=== PATIENT | male | born 1940 | race Caucasian/White ===

== ENCOUNTER 2019-08-03 10:17 | Outpatient (CLI) | payer MEDICARE, SELFPAY ==
--- NOTE | ~2019-08-03 | XR_ITS ---
XR wrist LT min 3V DATE: 08/03/2019 10:42 INDICATION: Rheumatoid arthritis TECHNIQUE: 4 views COMPARISON: None FINDINGS: There is no erosion of the ulnar styloid process. Radial carpal joint space is well preserv ed. There is prominent narrowing and some sclerosis at the triscaphe joint. There is erosive change of the base of the proximal phalanx of the first digit as well as some joint space narrowing and mild spurring. IMPRESSION: Erosive change at the base of the first metacarpal bone Degenerative changes at the triscaphe joint, first carpometacarpal joint Reviewed, dictated and finalized at location A.
--- NOTE | ~2019-08-03 | XR_ITS ---
XR wrist RT min 3V DATE: 08/03/2019 10:42 INDICATION: Rheumatoid arthritis TECHNIQUE: 4 views COMPARISON: None FINDINGS: No erosive change of the ulnar styloid process is evident. Radiocarpal joint is intact. There is cystic change or erosion at the proximal aspect of the navicular bone. There is severe narrowing of some sclerosis at the triscaphe joint. There is some erosive change of base of the first metacarpal bone as well as joint space narrowing an d some spurring at this joint. There is osteoarthritic change at the interphalangeal joint of first digit. IMPRESSION: Some erosive and degenerative changes are identified Reviewed, dictated and finalized at location A.
== END 2019-08-03 10:18 | disposition home or self-care (01) ==
LOC: ANHIMG 10:22
PROVIDERS: PCP Internal Medicine
DX: M05.79 Rheumatoid arthritis with rheumatoid factor of multiple sites without organ or systems involvement (principal)
CPT/HCPCS: 73110

== ENCOUNTER 2020-11-13 14:30 | Outpatient (RCR) | payer MEDICARE, OTHER, SELFPAY ==
--- NOTE | 2020-10-09 17:05 | PTOPEVAL ---
INITIAL PHYSICAL THERAPY EVALUATION and PLAN OF CARE Thank you for referring Bruno Winters to [facility].? Bruno is scheduled to be seen for physical therapy? 0-1x/week for 5 weeks. Please review, sign, date and return this plan of care BLADE. I agree with and certify that the following plan of care is medically necessary. Referring Physician Date Admitting Provider: Attending Provider: Bubba Clarke MD Referring Provider: *PT Outpatient Evaluation Start: 10/09/20 13:30 Freq: Status: Active Protocol: Document 10/09/20 13:30 YUNIEL (Rec: 10/09/20 15:03 YUNIEL [id number]) Therapy Assessment Status Assessment Status Assessment Status Evaluation Outpatient Past Medical History Past Medical History Source of Past Medical History Recalled from Previous Visit, Confirmed with Patient/Family Neurological History Hx Neurological Disorders No Significant History Cardiovascular History Hx Cardiac Catheterization Yes: 2020 Hx Hypertension Yes Hx Pacemaker Yes: ICD june 2020 Respiratory History Hx Other Respiratory Disorders Yes: 03/2020 covid 19 pneumonia Gastrointestinal History Hx Hemorrhoids Yes: Hx Other Gastrointestinal Disorders Yes: occasional constipation Genitourinary History Hx Transurethral Resection Yes: 2018 Musculoskeletal History Hx Joint Replacement Yes: rt knee 2012 Hematological History Hx Other Hematological Disorders Yes: zarelto Endocrine History Hx Endocrine Disorders No Significant History HEENT History Hx Cataracts Yes: both 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 Hx Tonsillectomy Yes Hx Eye Surgery Yes Integumentary History Hx Skin Disorders No Significant History Reproductive History Hx Reproductive Disorders No Significant History Psychosocial History Hx Psychiatric Disorders No Significant History Pain History History of Any Previous or Ongoing No Significant History Instance of Pain Other History Hx Cancer Yes: skin cancer not melanona Evaluation Information Problem Diagnosis fecal smearing Onset last several months Additional Evaluation Detail Hospitalized in [place] with pneumonia and COVID - mid February - May Subjective Information Taking fiber drink - that is Query Text:As Reported By Patient/ helping Has hemorrhoids - Family has had surgery in the past. While hospitalized for COVID and pneumonia - afterwards
--- NOTE | 2020-11-13 15:16 | PTOPEVAL ---
PHYSICAL THERAPY DISCHARGE SUMMARY Thank you for referring Bruno Winters to [facility].? Rusty has done well in PT - he has met all goals set. He was seen x 3 visits. He is independent and compliant with his HEP which he is to continue to perform. I agree with Rusty's discharge from PT. Referring Physician Date Admitting Provider: Attending Provider: Bubba Clarke MD Referring Provider: Therapy Assessment Status Assessment Status Assessment Status Discharge Evaluation Information Problem Diagnosis fecal smearing Subjective Information Rusty reports that he is Query Text:As Reported By Patient/ getting up 1-x/night for Family urination - which is much improved from 6-7 times/night. He continues to use [employer] product - it is what they have - only uses 1/day - not very soiled at all. Did hurt back while on vacation - hasn't been as good with the pelvic floor exercises. Not losing any urine or stool with sit to stand motion. Tons better than when he first started. Pain Assessment Timing of Pain Assessment Timing of Pain Assessment Assessment Self Report Self Report Pain Level 0 Pain Score Pain Score 0: Self Report Pelvic Health Evaluation Pelvic Floor Assessment Sustained Levator Ani Strength 4 - able to hold 15 sec now Quick Levator Ani Contraction in 15 11 Seconds Pelvic Health Therapy Pelvic Health Exercise Isolated Levator Ani Contraction sitting - 10 ct hold/10 ct Query Text:Position, Hold/Relaxation relax x 5 reps Time, Repetitions Quick Contractions sitting 10 reps Query Text:Position, Repetitions Sit to Stand 2 deep breaths,6 quick Query Text:Deep Breaths, Quick contractions x 1 rep-verbally Contractions, Repetitions reviewed several times Elevator Techniques sitting Ken[place] Ball 4 steps up, Query Text:Repetitions, Number of 5 ct hold;3 steps going down x Steps Going Up, Number of Steps Going 5;variable x3 Down Resistive 'Shh' Technique long, soft x 5 reps, quick, Query Text:Quick, Hard, Long, Soft, hard x 5 reps Number of Repetitions Response to Exercise Increased Strength Endurance Excellent Rehab Teaching Rehab Teaching Teaching Topic Rehab Teaching Topic Components Exercise,Home Program As Pertains To Technique Recipient Patient Learning Preferences Audio,Demonstration,Discussion
== END 2020-11-14 10:28 | disposition home or self-care (01) ==
LOC: ANHPT 14:30
PROVIDERS: PCP Internal Medicine
DX: R15.1 Fecal smearing (principal)
CPT/HCPCS: 97110; 97161

== ENCOUNTER 2020-12-15 09:45 | Outpatient (RCR) | payer MEDICARE, OTHER, SELFPAY ==
[2020-09-23 15:26] VITALS: BP 148/80; PULSE 63; RESP 16; O2SAT 97
== END 2020-12-15 19:30 | disposition home or self-care (01) ==
LOC: ANHCPREHAB 09:45
PROVIDERS: PCP Internal Medicine
DX: I50.89 Other heart failure (principal)
CPT/HCPCS: 93798

== ENCOUNTER 2021-03-05 02:03 | Day surgery (SDC) | payer MEDICARE, OTHER, SELFPAY ==
[2021-02-23 13:11] VITALS: BMI 25.2
[2021-03-05 10:41] VITALS: BP 111/65; PULSE 74; RESP 20; TEMP 36.1; O2SAT 99
--- NOTE | 2021-03-05 10:54 | PM.HPGS ---
History of Present Illness History of Present Illness Consent: Risks, benefits, and alternatives have been discussed and questions answered. Patient agrees to proceed with procedure. Chief complaint: MORGAN Narrative: Bruno Winters is a 81 year old male Who occasionally sees blood in his stools. He was recently found to be anemic. He had been referred to a colorectal surgeon for possible hemorrhoidectomy. Surgery however felt his hemorrhoids did not warrant surgery Review of Systems Review of Systems: All systems reviewed & are unremarkable except as noted in HPI and below PMFSH Past Medical History Medical History Back pain BPH (benign prostatic hyperplasia) Cataracts, bilateral Detached retina Hyperlipidemia Hypertension Pacemaker Rectal polyp Surgical History Surgical History H/O hemorrhoidectomy H/O hernia repair H/O transurethral resection of prostate History of total right knee replacement (TKR) Hx of cataract surgery Family History Family History (Updated 09/23/20 @ 15:33 by Jaz Rouse RN) Sibling Valvular heart disease Leukemia Father Pancreatic cancer Mother Leukemia Son Melanoma of eye Other Melanoma Social History Social History Years smoked: 12 Smoking status: Former smoker Tobacco type: pipe Smoking end date: 02/28/73 Alcohol intake: current Drinks per week: 2 Living arrangements: with family Gender identity (if verbalized by the patient): Male Spiritual care concerns: No Meds Home Medications and Allergies Home Medications Medication Instructions Recorded Confirmed Type furosemide 40 mg tablet 60 mg PO QAM 07/29/20 02/23/21 History isosorbide dinitrate 30 mg tablet 30 mg PO DAILY 07/29/20 02/23/21 History losartan 25 mg tablet 25 mg PO DAILY 07/29/20 02/23/21 History methotrexate sodium 2.5 mg tablet 12.5 mg PO WEEKLY 07/29/20 02/23/21 History amiodarone [Pacerone] 200 mg PO DAILY 09/23/20 02/23/21 History folic acid 5 mg PO DAILY 09/23/20 02/23/21 History metoprolol tartrate 50 mg PO DAILY 09/23/20 02/23/21 History ckczkobo-dle-afhww-vit K-lycop 1 tablet PO DAILY 09/23/20 02/23/21 History [Men's Multivitamin] rivaroxaban [Xarelto] 20 mg PO DAILY 09/23/20 03/05/21 History ferrous sulfate 325 mg PO DAILY 02/23/21 02/23/21 History zinc 50 mg PO DAILY 02/23/21 02/23/21 History Allergies Allergy/AdvReac Type Severity Reaction Status Date / Time lisinopril Allergy Mild cough Verified 03/05/21 10:38 baclofen Allergy Unknown Dizziness Verified 03/05/21 10:38 Vital Signs Vital Signs - 24 hr 03/05/21 10:41 Temperature 36.1 C L Pulse Rate 74 Respiratory Rate 20 Blood Pressure 111/65 Pulse Oximetry 99 Exam Const: General: alert Orientation/consciousness: patient oriented x3 Resp: Auscultation: clear to auscultation bilaterally Cardio: Rhythm: regular rhythm GI: GI Palp: Yes Soft to palpation and No Tenderness to palpation present (GI) Neuro: General: patient oriented x3 Assessment and Plan Assessment and plan (1) Anemia: Code(s): D64.9 - Anemia, unspecified Status: Acute Assessment and Plan: Colonoscopy with possible biopsy or polypectomy or cautery or injection of substances.
[2021-03-05] MEDS: LACTATED RINGERS 1,000 ML 150 ML IV CONT (10:56)
--- NOTE | 2021-03-05 11:07 | WPDANESEPPF ---
Anes - Initial Pre Proc Eval Procedure: Operation Date: 03/05/21 12:00 Proposed Procedures p Colonoscopy - Tank Hinds MD Date/Time: 03/05/21 11:07 Surgeon: Tank Hinds MD Pre Op Diagnosis: MORGAN Patient Data Age: 81 Gender: M Height: 1.78 m Weight: 80 kg Last Vital Signs Temp 97 F L 03/05/21 10:41 Pulse 74 03/05/21 10:41 Resp 20 03/05/21 10:41 BP 111/65 03/05/21 10:41 Pulse Ox 99 03/05/21 10:41 Allergies Allergy/AdvReac Type Severity Reaction Status Date / Time lisinopril Allergy Mild cough Verified 03/05/21 10:38 baclofen Allergy Unknown Dizziness Verified 03/05/21 10:38 Home Medications Medication Instructions Recorded Confirmed Type furosemide 40 mg tablet 60 mg PO QAM 07/29/20 02/23/21 History isosorbide dinitrate 30 mg tablet 30 mg PO DAILY 07/29/20 02/23/21 History losartan 25 mg tablet 25 mg PO DAILY 07/29/20 02/23/21 History methotrexate sodium 2.5 mg tablet 12.5 mg PO WEEKLY 07/29/20 02/23/21 History amiodarone [Pacerone] 200 mg PO DAILY 09/23/20 02/23/21 History folic acid 5 mg PO DAILY 09/23/20 02/23/21 History metoprolol tartrate 50 mg PO DAILY 09/23/20 02/23/21 History gjwheiob-zaz-mmzos-vit K-lycop 1 tablet PO DAILY 09/23/20 02/23/21 History [Men's Multivitamin] rivaroxaban [Xarelto] 20 mg PO DAILY 09/23/20 03/05/21 History ferrous sulfate 325 mg PO DAILY 02/23/21 02/23/21 History zinc 50 mg PO DAILY 02/23/21 02/23/21 History Patient hx anesthesia problems: none Family hx anesthesia problems: none Results Review: All pre-operative results and documents have been reviewed as part of the pre-operative evaluation. [facility] Past Medical History Medical History Back pain BPH (benign prostatic hyperplasia) Cataracts, bilateral Detached retina Hyperlipidemia Hypertension Pacemaker Rectal polyp Surgical History Surgical History H/O hemorrhoidectomy H/O hernia repair H/O transurethral resection of prostate History of total right knee replacement (TKR) Hx of cataract surgery Family History Family History (Updated 09/23/20 @ 15:33 by Jaz Rouse RN) Sibling Valvular heart disease Leukemia Father Pancreatic cancer Mother Leukemia Son Melanoma of eye Other Melanoma Social History Social History Years smoked: 12 Smoking status: Former smoker Tobacco type: pipe Smoking end date: 02/28/73 Alcohol intake: current Drinks per week: 2 Living arrangements: with family Gender identity (if verbalized by the patient): Male Spiritual care concerns: No Anes - Eval Final PreProcedure Day of Procedure 03/05/21 11:07 Patient weight: overweight Heart: regular rate and rhythm Lungs: clear to auscultation Airway: Mallampati scale class III Neurological: alert and oriented Last oral intake: >/= 8 hours ASA classification: III Emergent: no Anesthetic plan: proceed Anesthesia type and monitoring: general GIVS and standard monitoring Results Review: All pre-operative results and documents have been reviewed as part of the pre-operative evaluation. Informed Consent: The patient's anesthetic plan and its attendant risks and benefits were discussed with the patient/family/POA. Questions were solicited and answers provided to the satisfaction of the patient/family/POA.
[2021-03-05 11:42] VITALS: BP 110/66; PULSE 70; RESP 23; O2SAT 100
[2021-03-05 11:52] VITALS: BP 105/66; PULSE 70; RESP 18; O2SAT 96
[2021-03-05 12:02] VITALS: BP 110/68; PULSE 70; RESP 18; O2SAT 97
--- NOTE | 2021-03-05 13:17 | SUR.PHASEII ---
Edwardo from [employer] at bedside interrogating pacemaker.
== END 2021-03-05 13:31 | disposition home or self-care (01) ==
PROVIDERS: Visit Provider Internal Medicine Gastroenterology
PROC: 0DJD8ZZ Inspection of Lower Intestinal Tract, Via Natural or Artificial Opening Endoscopic (ICD-10-PCS; CPT 45378; principal; 2021-03-05 12:00)
DX: K92.1 Melena (principal); D50.9 Iron deficiency anemia, unspecified; D12.0 Benign neoplasm of cecum; K63.5 Polyp of colon; N40.0 Benign prostatic hyperplasia without lower urinary tract symptoms; E78.5 Hyperlipidemia, unspecified; I10 Essential (primary) hypertension; Z95.0 Presence of cardiac pacemaker; Z87.891 Personal history of nicotine dependence; K57.30 Diverticulosis of large intestine without perforation or abscess without bleeding
CPT/HCPCS: 45385; 88305; J2001; J2704; J7120

== ENCOUNTER → 2021-08-24 15:21 | Outpatient (CLI) | payer MEDICARE, OTHER, SELFPAY ==
--- NOTE | ~2021-08-24 | CT_ITS ---
EXAMINATION: CT brain wo con DATE: 08/24/2021 15:45 INDICATION: Thaddeus Vanita syndrome TECHNIQUE: Computed tomography (CT) of the head was performed without intravenous contrast. The mA wa s adjusted according to patient size. Iterative reconstruction technique was employed. Exam dose: 59 9.57 mGy-cm total exam DLP. COMPARISON: None FINDINGS: Bilateral vertebral and internal carotid artery calcifications. There is nonspecific dimini shed attenuation of the cerebral white matter, likely due to chronic small vessel ischemic changes. There is prominent central and cortical cerebral volume loss and moderate cerebellar volume loss. No intracranial mass lesion or hemorrhage or cerebrovascular accident is detected. No midline shift o r mass effect. No subdural or epidural hematoma. No fracture or bone destruction of the cranial vault. Included paranasal sinuses and mastoid air cell s are normally developed and aerated. IMPRESSION: Cerebral and cerebellar volume loss Cerebral atherosclerosis and chronic small vessel ischemic changes of the cerebral white matter Reviewed, dictated and finalized at Location A. Reviewed, dictated and finalized at location B. IMPRESSION: Cerebral and cerebellar volume loss Cerebral atherosclerosis and chronic small vessel ischemic changes of the cereb ral white matter
== END ==
PROVIDERS: PCP Internal Medicine; Visit Provider Internal Medicine
DX: H53.16 Psychophysical visual disturbances (principal); I67.2 Cerebral atherosclerosis; I67.82 Cerebral ischemia
CPT/HCPCS: 70450

== ENCOUNTER 2021-11-04 07:34 | Outpatient (CLI) | payer MEDICARE, OTHER, SELFPAY ==
--- NOTE | 2021-11-27 11:38 | WPDSLEEPSTUD ---
Sleep Study Date of Study: 11/04/21 Ordering Provider: EVELIO Solis Interpreting Physician: Glory Merida MD Sleep Study Type: Split Polysomnogram Height: 1.78 m Weight: 78.925 kg Body Mass Index: 25.0 Neck Circumference (inches): 13.5 [place]: 12 Reason for Sleep Study Poor sleep, nonrestorative sleep Sleep History Bruno Winters is an 81-year-old man who complains of lack of sleep. 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 He also has severe systolic dysfunction with an EF of 16% on an echo from July 21, 2021 at [facility]. He has difficulty falling asleep, he wakes up during the night including the early mornings and he has excessive daytime sleepiness. He rarely awakens from sleep feeling short of breath. He rarely awakens at night with heartburn, belching or coughing. He frequently snores and occasionally this is loud enough that others complain about it. He does not gasp for breath at night. He frequently has breathing problems at night observed by others. He does not sweat excessively at night or notice his heart pounding or beating irregularly at night he frequently falls asleep during the day, frequently falls asleep involuntarily but only rarely while driving. He does not have loss of muscle tone with strong emotion. He does not have daytime difficulties due to excessive sleepiness. He does not feel paralyzed on waking or falling asleep nor does he have vivid dreamlike scenes upon awakening or falling asleep. He does not feel afraid to go to sleep. He does not have nightmares. He rarely remembers his dreams. He rarely has racing thoughts. He rarely feels sad or depressed. He does not have anxiety. He does not have muscular tension. He occasionally notices parts of his body jerking. He rarely kicks at night. He rarely has crawling and aching feelings in his legs. He rarely has any kind of leg pain at night. He does not have morning jaw pain. Does not grind his teeth during sleep. He is not bothered by pain during the day. He rarely is awakened by pain at night. He does not wake up feeling stiff in the morning. He does not wake up with sore achy muscles. He rarely wakes up with pain in the neck and spine. He has fatigue. Normal bedtime is 11:00 pm, taking 1-2 hours to fall asleep, waking at night to urinate several times. He wakes at 8:00 a.m. not feeling refreshed. He takes naps in the afternoon or evening, however naps are not refreshing. He is drowsy for 2 hours after waking. Habits: Former smoker. Quit smoking tobacco pipe in 1974. One alcoholic drink per week. No recreational drugs. [facility] Past Medical History Medical History Back pain BPH (benign prostatic hyperplasia) Cataracts, bilateral Detached retina Hyperlipidemia Hypersomnia, unspecified Hypertension Pacemaker Rectal polyp Surgical History Surgical History H/O hemorrhoidectomy H/O hernia repair H/O transurethral resection of prostate History of total right knee replacement (TKR) Hx of cataract surgery Family History Family History Sibling Valvular heart disease Leukemia Father Pancreatic cancer Mother Leukemia Son Melanoma of eye Other Melanoma Social History Social History Years smoked: 12 Smoking status: Former smoker Tobacco type: pipe Smoking end date: 02/28/73 Alcohol intake: current Drinks per week: 2 Gender identity (if verbalized by the patient): Male Spiritual care concerns: No Medications Home Medications Medication Instructions Recorded Confirmed Type furosemide 40 mg tablet 60 mg PO QAM 07/29/20 10/14/21 History isosorbide dinitr
[2021-11-27 13:07] VITALS: BMI 25.0
== END 2021-11-05 06:09 | disposition home or self-care (01) ==
PROVIDERS: PCP Internal Medicine; Visit Provider Physician Assistant
DX: G47.31 Primary central sleep apnea (principal); G47.10 Hypersomnia, unspecified; G47.30 Sleep apnea, unspecified
CPT/HCPCS: 95811

== ENCOUNTER 2022-02-26 10:19 | Outpatient (CLI) | payer MEDICARE, OTHER, SELFPAY ==
--- NOTE | ~2022-02-26 | US_ITS ---
EXAMINATION: US carotid duplex BI DATE: 02/26/2022 11:19 INDICATION: Subjective visual loss in the left eye TECHNIQUE: Grayscale, color Doppler, and pulsed Doppler images of the cervical carotid arteries were obtained. The degree of vessel stenosis is placed in one of the following categories: normal, <50%, 5 0-69%, >=70% but less than near-occlusion, near-occlusion, or total occlusion. Note that percent sten osis relative to normal distal artery lumen diameter is indirectly measured from velocity measurement s as described by Adi, et al. Radiology 2003; [id number]. COMPARISON: None. FINDINGS: RIGHT: The right common carotid artery (CCA) peak systolic velocity (PSV) is 52 cm/s. The right internal car otid artery (ICA) PSV is 55 cm/s. The right ICA end-diastolic velocity (EDV) is 19 cm/s. The right IC A/CCA PSV ratio is 1.0. Grayscale and color Doppler images yield an estimate of <50% diameter reducti on from negligible plaque in the ICA. The external carotid artery (ECA) PSV is 55 cm/s. There is ante grade flow in the right vertebral artery. LEFT: The left CCA PSV is 59 cm/s. The left ICA PSV is 55 cm/s. The left ICA EDV is 20 cm/s. The left ICA/C CA PSV ratio is 0.9. Grayscale and color Doppler images yield an estimate of <50% diameter reduction from negligible plaque in the ICA. The ECA PSV is 44 cm/s. There is antegrade flow in the left verteb ral artery. IMPRESSION: 1. <50% stenosis from negligible plaque in the right internal carotid artery. 2. <50% stenosis from negligible plaque in the left internal carotid artery. Reviewed, dictated and finalized at location A. UE MAKER
== END 2022-02-26 10:20 | disposition home or self-care (01) ==
PROVIDERS: PCP Internal Medicine; Visit Provider Internal Medicine
DX: H54.62 Unqualified visual loss, left eye, normal vision right eye (principal); H53.8 Other visual disturbances; I65.23 Occlusion and stenosis of bilateral carotid arteries
CPT/HCPCS: 93880

== ENCOUNTER 2022-04-29 08:00 | Outpatient (RCR) | payer MEDICARE, OTHER, SELFPAY ==
--- NOTE | 2022-03-25 10:00 | PTOPEVAL1 ---
Assessment and note entered by Yvette Foreman, PT Evaluation Information Assessment Status Evaluation Diagnosis leg strengthening Onset Feb 2020 Subjective Information have had some leg weakness since hospitalizations and illness since 2020; limited standing ~ 5-10 min due to R knee pain, walking ~ 50 yards, knee hurts; had R TKR in 2012 and soreness and pain since then; was told had bone spurs in the knee; last saw orthopedic dr about 3 yr ago; do not do any exercises for legs; have stationary bike at home--not using at this time; in the past 6 months, have fallen 7 x- catch foot on rug, missing a step; R foot feels numb; Reported Pain Level Pain Score Self Report Additional Pain Score Comments pain range of 2-4/10; increase standing, walking, stairs; decreased pain with rest, sit down; no meds; no ice used; discussed PRN use of ice; Assessment PT Clinical Summary Rusty has the diagnosis of leg strengthening. 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 He has decreased standing and walking tolerance, with history of 7 falls in the past 6 months. His medical history includes R eye blindness, R TRK in 2012 and has not followed up with ortho dr in several years. He does not do any exercises at home. With the evaluation: he has weakness of B hips, knees and ankles, with decreased motor control of ankle motions and walks with lateral motion of trunk; 2 minute walk test distance of 475' with reports of SOB, increase knee pain and increased lateral motion of trunk R/L. Skilled PT services are indicated for therapeutic exercises to increase LE strength, gait and balance skills, to improve safety with mobility and decrease risk for falls. And education for home exercises and improved gait pattern. Plan of Care Interventions Gait Training,Neuro Re-education,Patient/Caregiver Education,Therapeutic Activities,Therapeutic Exercise PT Services Indicated Yes Treatment Frequency and 2x/wk for 4 weeks Duration These treatments will address the objective and functional deficits as defined above. The patient will be advanced safely and appropriately in order for the patient to progress towards his/her prior level of function. Additional exercises will be introduced and as well as a comprehensive home exercise program upon disc
--- NOTE | 2022-04-08 13:49 | PCPTNOTE ---
Pt was not seen this date. Pt arrived for treatment as scheduled but alerted HAMPER MAKER that he was having issues with his defibbulator and it is only working at 15% currently. He stated he has to obtain a X-Ray to confirm if any wires were loose. He has not received that x-ray as of today. He is encouraged to do so and contact us with further details. HAMPER MAKER discussed with Faculty Instructor and it was agreed not to see pt until he had further details and to follow up with PT to confirm when she returns.
--- NOTE | 2022-04-29 08:31 | PTOPDC ---
Assessment and note entered by Yvette Foreman, PT Evaluation Information Assessment Status Discharge Diagnosis leg strengthening Onset Feb 2020 Subjective Information Rusty reports: pacemaker has been checked and said it was doing OK; use the cane for long walks but normally not use it; doing the exercises at home, hardest one is standing on one leg; continues to have R knee pain; feels like ready to be finished with therapy and do things on his own; Reported Pain Level Pain Score Self Report- continue to have R knee pain Assessment PT Clinical Summary Rusty has received 8 PT sessions. Compared to the initial evaluation he has improved with: R and L LE strength; increased 2 minute walking test distance by 75'; improved gait pattern and reported confidence with walking; He has been educated on a home exercise program and safety with mobility. He continues to have R knee pain and fatigue due to cardiac issues. The goals were partially achieved. Discharge PT services. Plan of Care PT Services Indicated No
== END 2022-06-08 11:15 | disposition home or self-care (01) ==
LOC: ANHPT 08:00
PROVIDERS: PCP Internal Medicine
DX: M06.09 Rheumatoid arthritis without rheumatoid factor, multiple sites (principal)
CPT/HCPCS: 97110; 97112; 97162; 97530

== ENCOUNTER 2022-12-28 09:43 | Emergency (ER) | payer MEDICARE, OTHER, SELFPAY ==
--- NOTE | ~2022-12-28 | XR_ITS ---
EXAMINATION: XR chest 2V DATE: 12/28/2022 10:24 INDICATION: Right-sided chest pain. Fall. TECHNIQUE: Frontal and lateral views of the chest were obtained. COMPARISON: Chest 2 views 09/05/2007 FINDINGS: There is a small right pleural effusion. There are airspace opacities in right mid and lowe r lung zones. There are Balbir B-lines, consistent mild pulmonary edema. No pneumothorax. The heart s ize is normal. There is a left chest was placed selectively with leads in right atrium, right ventric le, and coronary sinus. There is mild chronic anterior wedging of multiple midthoracic vertebral bodi es. IMPRESSION: 1. Airspace opacities in right mid and lower lung zones, consistent with atelectasis versus pneumonia . 2. Mild pulmonary edema. 3. Small right pleural effusion. Reviewed, dictated and finalized at location E. IMPRESSION: 1. Airspace opacities in right mid and lower lung zones, consistent with atelec tasis versus pneumonia. 2. Mild pulmonary edema. 3. Small right pleural effusion.
[2022-12-28 10:00] VITALS: BP 123/71; PULSE 71; RESP 18; TEMP 36.8; O2SAT 99
[2022-12-28] MEDS: IPRATROPIUM BR 0.02% INH SOLN 0.5 MG/2.5 ML VIAL INHALATION (11:35)
[2022-12-28] MEDS: LEVALBUTEROL NEB 1.25 MG/3 ML INHALATION (11:35)
[2022-12-28 11:40] VITALS: O2SAT 100
--- NOTE | 2022-12-28 12:38 | ED.GENADULT ---
HPI - General Adult General Chief complaint: Fall Stated complaint: fall 10days ago, wants xray Time Seen by Provider: 12/28/22 11:08 History of Present Illness HPI narrative: Patient is an 82-year-old male who presents ER with some discomfort to his right upper chest. He had a trip and fall 10 days ago landing on his chest on a concrete floor. He did not strike his head or lose consciousness. He has had persistent pain since then decided that he wanted an x-ray. He has no fevers or chills or sweats. He does have mild pain with deep breath. No productive cough. Denies nausea or vomiting. Related Data Home Medications Medication Instructions Recorded Confirmed furosemide 40 mg tablet 60 mg PO QAM 07/29/20 10/20/22 isosorbide dinitrate 30 mg tablet 30 mg PO DAILY 07/29/20 10/20/22 losartan 25 mg tablet 25 mg PO DAILY 07/29/20 10/20/22 methotrexate sodium 2.5 mg tablet 12.5 mg PO WEEKLY 07/29/20 10/20/22 amiodarone 200 mg tablet (Pacerone) 200 mg PO DAILY 09/23/20 10/20/22 folic acid 1 mg tablet 5 mg PO DAILY 09/23/20 10/20/22 wwgqfsca-qrpumjiz-bszdv acid 400 1 tablet PO DAILY 09/23/20 10/20/22 mcg-vit K 20 mcg-lycop 300 mcg tablet (Men's Multivitamin) rivaroxaban 20 mg tablet (Xarelto) 20 mg PO DAILY 09/23/20 10/20/22 ferrous sulfate 325 mg (65 mg 325 mg PO DAILY 02/23/21 10/20/22 iron) tablet zinc 50 mg tablet 50 mg PO DAILY 02/23/21 10/20/22 dapagliflozin propanediol 5 mg 5 mg PO DAILY 10/14/21 10/20/22 tablet (Farxiga) metoprolol succinate 50 mg 50 mg PO 10/13/22 10/20/22 tablet,extended release 24 hr spironolactone 25 mg tablet 25 mg PO 10/13/22 10/20/22 Allergies Allergy/AdvReac Type Severity Reaction Status Date / Time lisinopril Allergy Mild cough Verified 10/20/22 13:32 baclofen Allergy Unknown Dizziness Verified 10/20/22 13:32 Review of Systems Review of Systems: All systems reviewed & are unremarkable except as noted in HPI and below Constitutional: Constitutional: Denies chills, Denies fatigue and Denies fever(s) ENT: Denies nasal congestion and Denies sore throat Cardiovascular: Cardiovascular: Reports chest pain, Denies rapid heart rate and Denies radiating jaw, neck or arm pain Respiratory: Respiratory: Denies cough, Denies dyspnea and Denies wheezing Gastrointestinal: Gastrointestinal: Reports no additional gastrointestinal complaints [facility] Past Medical History Medical History Atrial fibrillation Back pain BPH (benign prostatic hyperplasia) Cataracts, bilateral Detached retina Heart failure Hyperlipidemia Hypersomnia, unspecified Hypertension Pacemaker Rectal polyp Surgical History Surgical History H/O hemorrhoidectomy H/O hernia repair H/O transurethral resection of prostate History of total right knee replacement (TKR) Hx of cataract surgery Family History Family History Sibling Valvular heart disease Leukemia Father Pancreatic cancer Mother Leukemia Son Melanoma of eye Other Melanoma Social History Social History Social History: He is a former smoker. He smoked a tobacco pipe for 15 years and quit in 1974. He drinks about 1 alcoholic drink per week. Denies illicit substance use. He is an [employer] and served in [employer]. 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 He lives at home in [place] with his , Dimple. No pets. Years smoked: 10 Smoking status: Former smoker Tobacco type: pipe Second hand tobacco smoke exposure: No Smoking end date: 11/14/74 Alcohol intake: current Drinks per week: 2 Substance use: never Lack of Transportation: No Lack of Food: Never True Current Housing: I Have Housing Concerned A
== END 2022-12-28 12:55 | disposition home or self-care (01) ==
PROVIDERS: Emergency Provider Emergency Medicine; PCP Internal Medicine
DX: J18.9 Pneumonia, unspecified organism (principal); R07.89 Other chest pain; E78.5 Hyperlipidemia, unspecified; I11.0 Hypertensive heart disease with heart failure; I50.9 Heart failure, unspecified; I48.91 Unspecified atrial fibrillation; Z87.891 Personal history of nicotine dependence; W01.0XXA Fall on same level from slipping, tripping and stumbling without subsequent striking against object, initial encounter
CPT/HCPCS: 71046; 94640; 94664; 99283

== ENCOUNTER 2023-02-24 13:30 | Outpatient (RCR) | payer MEDICARE, OTHER, SELFPAY ==
[2022-11-19 15:34] VITALS: PULSE 70
== END 2023-03-08 09:27 | disposition home or self-care (01) ==
LOC: ANHCPREHAB 13:30
PROVIDERS: PCP Internal Medicine
DX: I50.9 Heart failure, unspecified (principal)
CPT/HCPCS: 93798

== ENCOUNTER 2024-02-15 12:48 | Outpatient (CLI) | payer MEDICARE, OTHER, SELFPAY ==
--- NOTE | ~2024-02-15 | XR_ITS ---
Clinical Indication: Pleural effusion PA and lateral views of the chest: Comparison: 12/28/2022 Findings: Moderate right pleural effusion present. Left lung clear. Cardiomediastinal silhouette is stable, with pacemaker device. Bones and soft tissues are unremarkable. Impression: Moderate right pleural effusion with probable right basilar atelectatic change. Pacemaker device. Reviewed, dictated and finalized at location . CLERK Impression: Moderate right pleural effusion with probable right basilar atelectatic change. Pacemaker device.
== END 2024-02-15 12:49 | disposition home or self-care (01) ==
DX: J90 Pleural effusion, not elsewhere classified (principal); Z95.0 Presence of cardiac pacemaker
CPT/HCPCS: 71046

== ENCOUNTER 2024-05-07 15:08 | Outpatient (CLI) | payer MEDICARE, OTHER, SELFPAY ==
--- NOTE | ~2024-05-07 | XR_ITS ---
EXAMINATION: XR chest 2V Exam Date/Time: 05/07/2024 15:41 CDT HISTORY: pleural effusion Comparison: 02/15/2024. RESULT: Lines, tubes, and devices: Left chest pacer/AICD with intact leads. Lungs and pleura: Segmental somewhat masslike appearing opacity over the medial right midlung, proje cting over the spine in the lateral view. Somewhat ovoid fluid density collection over the minor fiss ure. Hemidiaphragm flattening. Mild bilateral costophrenic angle blunting. Cardiomediastinal silhouette: Stable. Other: No acute osseous or upper abdominal finding. IMPRESSION: Mass, consolidation, or loculated fluid projecting over the right paraspinal lung/paraspinal tissues. Small bilateral pleural effusions, with partial loculation of the right effusion in the minor fissur e. Consider CT of the chest with contrast for further evaluation. Reviewed, dictated and finalized at location K. IMPRESSION: Mass, consolidation, or loculated fluid projecting over the right paraspinal dino ng/paraspinal tissues. Small bilateral pleural effusions, with partial loculati on of the right effusion in the minor fissure. Consider CT of the chest with co ntrast for further evaluation.
--- OUTSIDE RECORDS SUMMARY | 2024-05-07 17:51 | XMS_ITS | Referral Summary ---
Author Organization [facility] Address [address] [place] [address] Care Team Providers Care Muleser Name Role Phone Demarcus Zuniga MD Primary Care Provider [phone] Source Comments [facility],non-owned Affiliates and Associated Physician Practices is amultiple site organization consisting of ambulatory clinics and hospital sitesin [place], [place], [place] and [place]. This disclosure is being madepursuant to the Care Everywhere program and may not contain all information available regarding this patient. Last updated 17.[facility] Publer Social History Tobacco Use Types Packs/Day Years Used Date Smoking Tobacco: Never Assessed Sex and Gender Information Value Date Recorded Sex Assigned at Not on file Gender Identity Not on file Sexual Orientation Not on file Plan of Treatment Not on file Care Teams Muleser Relationship Specialty Start Date End Date Demarcus Zuniga MD [address] [place] [address] [address] [place] [address] PCP - General 03/06/21
--- OUTSIDE RECORDS SUMMARY | 2024-05-07 17:51 | XMS_ITS | Encounter Summary ---
Author Organization [facility] Address [address] [place] [address] Care Team Providers Care Office Associate Name Role Phone Demarcus Zuniga MD Primary Care Provider [phone] Reason for Visit * Reason Onset Date Comments Needs Form Or Letter Filled Out 05/07/2024 Encounter Details Date Type Department Care Team (Late st Contact Info) Description 05/07/2024 Telephone [facility] Heart and Vascular [facility] [address] [place] [address] Raul Varela MD [address] [place] [address] Needs Form Or Letter Filled Out Social History Tobacco Use Types Packs/Day Years Used Date Smoking Tobacco: Former Smokeless Tobacco: Never Alcohol Use Standard Drinks/Week Comments Not Currently 0 (1 standard drink = 0.6 oz pur e alcohol) Feeling Safe Answer Date Recorded Are you in a relationship wi th someone who hurts you emotionally and/or physically? No 12/21/2023 Food Insecurity Answer Date Recorded Social/Environmental Concerns No concerns Transportation Needs Answer Date Record ed Social/Environmental Concerns No concerns Housing Stability Answer Date Recorded Social/Environmental Concerns No concerns Utility Needs Answer Date Recorded Social/Environmental Concerns No concerns Sex and Gender Information Value Date Recorded Sex Assigned at Not on file Legal Sex Male 7:01 AM CDT Gender Identity Not on file Sexual Orientation Not on file documented as of this encounter Miscellaneous Notes * Telephone Encounter - Catherine Lawler - 05/07/2024 3:06 PM CDT PA for Yeyo has been approved. Approval letter scanned into media for review. documented in this encounter Plan of Treatment Upcoming Encounters Date Type Department Care Team (Late st Contact Info) Description 05/24/2024 2:45 PM CDT Office Visit [facility] - [facility] [place] [place] [address] [place] [phone] Raul Varela MD [address] [place] [address] [address] [place] [address] 06/07/2024 9:30 AM CDT Office Visit [facility] HEART AND VASCULAR EP AT [address] [place] [address] Praveen Ann MD [address] [place] [address] [address] [place] [address] 08/08/2024 12:30 PM CDT Procedure visit [facility] HEART AND VASCULAR EP AT [address] [place] [address] documented as of this encounter Visit Diagnoses Not on filedocumented in this encounter Additional Health Concerns Assessment Noted Time PHQ-9 Depression Total Score: 6 04/11/19 25 6:00 PM MEDICINE AIDE documented as of this encounter Care Teams Office Associate Relationship Specialty Start Date End Date Demarcus Zuniga MD [address] [phone] PCP - General Internal Medicine 06/16/20 documented as of this encounter
--- OUTSIDE RECORDS SUMMARY | 2024-05-07 17:51 | XMS_ITS | Encounter Summary ---
Author Organization [facility] Address [address] [place] [address] Care Team Providers Care Oil Change Technician Name Role Phone Demarcus Zuniga MD Primary Care Provider [phone] Reason for Visit * Reason Onset Date Comments thick opaque drainage 05/07/2024 Encounter Details Date Type Department Care Team (Late st Contact Info) Description 05/07/2024 Telephone [facility] Cardiovas and Thor Surg at [facility] [address] [facility] [address] [place] [address] Abdulkadir Corrigan MD [address] [facility] [place] [address] thick opaque drainage Social History Tobacco Use Types Packs/Day Years [...] encounter Miscellaneous Notes * Telephone Encounter - Fidelina Patel RN - 05/07/2024 2:09 PM CDT [place], [facility], advised patient is draining thick opaque fluid with an odor. Dr. Corrigan would like a chest xray to see if patient is accumulating fluid. If accumulating fluid, there is a possibility that patient come to office for thoracentesis and get a sample to test for infection. documented in this encounter Plan of Treatment Upcoming Encounters Date Type Department Care Team (Late st Contact Info) Description 05/24/2024 2:45 PM CDT Office Visit [facility] Heart and Vascular - [address] [phone] Raul Varela MD [address] [place] [address] [address] [place] [address] 06/07/2024 9:30 AM CDT Office Visit [facility] HEART AND VASCULAR EP AT [address] [place] [address] Praveen Ann MD [address] [place] [address] [address] [place] [address] 08/08/2024 12:30 PM CDT Procedure visit [facility] HEART AND VASCULAR EP AT [address] [place] [address] documented as of this encounter Visit Diagnoses Not on filedocumented in this encounter Additional Health Concerns Assessment Noted Time PHQ-9 Depression Total Score: 6 04/11/19 25 6:00 PM NAIL EXPERT documented as of this encounter Care Teams Oil Change Technician Relationship Specialty Start Date End Date Demarcus Zuniga MD [address] [phone] PCP - General Internal Medicine 06/16/20 documented as of this encounter
--- OUTSIDE RECORDS SUMMARY | 2024-05-07 17:51 | XMS_ITS | Encounter Summary ---
Author Organization [facility] Address [address] [place] [address] Care Team Providers Care Machinist Helper Name Role Phone Demarcus Zuniga MD Primary Care Provider [phone] Encounter Details Date Type Department Care Team (Late st Contact Info) Description 03/04/2023 Lab Requisition [facility] - DermPath Lab [address] [facility] [facility] [place] [phone] Thaddeus Cevallos MD [address] [place] [address] Social History Tobacco Use Types Packs/Day Years Used Date Smoking Tobacco: Never Assessed Sex and Gender Information Value Date Recorded Sex Assigned at Not on file Gender Identity Not on file Sexual Orientation Not on file documented as of this encounter Plan of Treatment Not on file documented as of this encounter Procedures Procedure Name Priority Date/Time Associated Diagnosis Comments DERMATOPATHOLOGY Routine 03/02/2023 3:33 AM SOFTWARE MANAGER documented in this encounter Results * DERMATOPATHOLOGY (03/02/2023 3:33 AM SOFTWARE MANAGER) Case Report Dermatopathology Report Case: [id number] Authorizing Provider: Thaddeus Cevallos MD Collected: 03/02/2023 03:33 AM Ordering Location: [facility] DermPath Lab Received: 03/04/2023 03:33 PM Pathologist: Julieta Diaz MD Specimen: Skin, nose bridge midline 12:07 PM SOFTWARE MANAGER DERMATOPATHOLOGY LABORATORY Final Diagnosis Specimen A. 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 The specimen consists of a shave biopsy measuring 13x9x3 mm. Jar 0. 4 12:07 PM [facility] DERMATOPATHOLOGY LABORATORY Microscopic Description Specimen A. SKIN, nose bridge midline: Arising in the epidermis and extending into the dermis there are irregularly shaped aggregates of keratinocytes showing evidence of premature cornification. 4 12:07 PM [facility] DERMATOPATHOLOGY LABORATORY Disclaimer An external and internal positive and negative controls are appropriate for the histochemical, immunohistochemical and immunofluorescence stain(s) in this case (if any), except where stated explicitly. The performance characteristics of the stain(s) cited in this report were developed and its performance characteristic determined by the Dermatopathology Laboratory at [facility], directed by Dr. Madison Galvan. These tests need not be, and therefore are not, approved by the [place] Food and Drug Administration. The tests are used for clinical purposes. Billing Codes Specimen Charges Stain Charges 49942 1 4 12:07 PM [facility] DERMATOPATHOLOGY LABORATORY Embedded Images 4 12:07 PM [facility] DERMATOPATHOLOGY LABORATORY Pathology/Cytolo gy TISSUE SPECIMEN FROM SKIN / Unknown 03/02/2023 3:33 AM SOFTWARE MANAGER 03/04/2023 3:33 PM SOFTWARE MANAGER Thaddeus Cevallos MD LAB - PATHOLOGY/CYTO LOGY ORDERABLES DERMATOPATHOLOGY LABORATORY [facility] - Department of Dermatology [facility] Medicine [address] [place] [address], [address] [phone] documented in this encounter Visit Diagnoses Not on filedocumented in this encounter Care Teams Machinist Helper Relationship Specialty Start Date End Date Demarcus Zuniga MD [facility] [address] [address] [place] [address] PCP - General 03/06/21 documented as of this encounter
--- OUTSIDE RECORDS SUMMARY | 2024-05-07 17:51 | XMS_ITS | Clinical Summary ---
Author Organization [facility] Address [address] [place] [address] Care Team Providers Care Spanish Linguist Name Role Phone Demarcus Zuniga MD Primary Care Provider [phone] Allergies Active Allergy Reactions Criticality Noted Date Comments Lisinopril Cough Low 03/19/2009 Medications fenofibrate 160 MG tablet Take 160 mg by mouth daily. 9 Active [place]-3 Fatty Acids (FISH OIL) 1200 MG Cap Take by mouth daily. Active Calcium Carbonate-Vitam in D (CALCIUM 600-D OR) Take 1 tablet by mouth daily. Active Multiple Vitamins-Minera ls (MULTIVITAMIN ADULT OR) Take 1 tablet by mouth daily. Active amiodarone (PACERONE) 200 MG tablet Pacerone 200 mg tablet TAKE 1 TABLET BY MOUTH DAILY 2 Active folic acid 1 MG tablet folic acid 1 mg tablet TAKE 5 TABLETS BY MOUTH DAILY 1 Active isosorbide mononitrate ER 30 MG 24 hr tablet isosorbide mononitrate ER 30 mg tablet,extended release 24 hr 2 Active losartan 25 MG tablet 2 Active methotrexate 2.5 MG tablet methotrexate sodium 2.5 mg tablet TAKE 5 TABLETS BY MOUTH WEEKLY Active metoprolol succinate ER 50 MG 24 hr tablet metoprolol succinate ER 50 mg tablet,extended release 24 hr TAKE 1 TABLET BY MOUTH DAILY GENERIC EQUIVALENT FOR TOPROL XL 2 Active spironolactone 25 MG tablet Take 12.5 mg by mouth daily. 2 Active zinc sulfate 220 MG capsule Take 220 mg by mouth daily. Active furosemide 40 MG tablet daily. Active pyridoxine (VITAMIN B-6) 100 MG tablet Active nystatin (MYCOSTATIN) 355848 UNIT/ML suspension SWISH AND SWALLOW 4 ML BY MOUTH THREE TIMES DAILY FOR 14 DAYS 2 Active rivaroxaban (XARELTO) 15 MG tablet Take 15 mg by mouth. Active furosemide (LASIX) 20 MG tablet daily. Active Active Problems Problem Noted Date Diagnosed Date Atrial fibrillation ([facility]) 08/17/2021 Congestive heart disease ([facility]) 08/17 Pacemaker 08/17/2021 Immunizations Name Administration Dates Next Due COVID-19 Vaccine (Generic) 02/06/2021,04/20/2020 ,03/20/2020 Fluzone High Dose - >Age 65 (Prefilled Syringe) 11/08/2017,12/29/2016,11/20/2016,2012 Influenza (Generic) 12/02/2021,,10/30/2019,2017,11/29/2015,11/29/2014,10/29/2013,0 11/13/2012,11/13/2011,11/12/2010, 010,10/29/2008,12/08/2007,11/28/2006,,12/30/2004 Influenza Adult (Generic) 12/02/2021,11/10/2020, 11/14/2013 MODERNA COVID-19 (12+) MRNA, LNP-S, PF, 100 MCG/ 0.5 ML DOSE 02/06/2021,07/29/2020,07/01/2020,2020,04/20/2020,03/20/2020 Pneumococcal (Generic) 04/22/2006 Pneumococcal (Pneumovax 23) 12/30/2007 Pneumococcal (Prevnar 13) 08/15/2014,07/29/2014 Shingrix 02/07/2019 Td, Adsorbed, Preservative F ree, Adult Use, Lf Unspecified 02/19/2005,04/28/2001 Tdap (Generic) 01/03/2015 Zoster (Zostavax) 60853 Unt/0.65Ml 04/30/2012, Zoster Unspecified Formulation 07/29/2020 Family History Medical History Relation Comments leukemia Brother Cancer Father pancreatic cancer Father Cancer Mother leukemia Mother Relation Status Comments Brother Daughter Alive Father (Age 71) Mother (Age 66) Sister 1 Alive Sister 2 Alive Son 1 Alive Son 2 Alive Social History Tobacco Use Types Packs/Day Years Used Date Smoking Tobacco: Former Pipe Q uit: 1975 Smokeless Tobacco: Never Tobacco Cessation:Counseling Given: Not Answered Alcohol Use Standard Drinks/Week Comments Yes 0 (1 standard drink = 0.6 oz pur e alcohol) 1/week PHQ-2 Answer Date Recorded Patient Health Questionnaire-2 Score 0 02/15/2022 Sex and Gender Information Value Date Recorded Sex Assigned at Not on file Legal Sex Male 9:50 AM CDT Gender Identity Not on file Sexual Orientation Not on file Last Filed Vital Signs Vital Sign Reading Time Taken Comments Blood Pressure 95/56 02/15/2022 10:27 AM MANAGER GROCERY Pulse 64 02/15/2022 10:27 AM MANAGER GROCERY Temperature 36.4 C (97.6 F) 02/15/2022 10:27 AM MANAGER GROCERY Respiratory Rate 17 08/17/2021 10:36 AM CDT Oxygen Saturation 97% 02/15/2022 10:27 AM MANAGER GROCERY Inhaled Oxygen Concentration - - Weight 80.9 kg (178 lb 6.4 oz) 02/15/2022 10:27 AM MANAGER GROCERY Height 177.8 cm (5' 10 ) 02/15/2022 10:27 AM MANAGER GROCERY Body Mass Index 25.6 02/15/2022 10:27 AM MANAGER GROCERY Plan of Treatment Health Maintenance Due Date Last Done Comments Annual Medicare Wellness Visit 2006 RSV Immunization or 60+ Years (1 - 1-dose 75+ series) 02/02/2016 COVID-19 Vaccine ( season) 2023 02/06/2021, 02/06/2021, 07/29/2020, Additional history exists Influenza Adult (#1) 2023 12/02/2021, 12/02/2021, 12/05/2020, Additional history exists DTaP, Tdap and Td Vaccines (2 - Td or Tdap) 01/03/2025 01/03/2015, 02/19/2005, 04/28/2001 Pneumococcal Vaccine: 65+ Years Completed 08/15/2014, 07/29/2014, 12/30/2007 Zoster Vaccines Completed 07/29/2020, 01/28, 04/30/2012, Additional history exists Meningococcal B Vaccine Aged Out No l onger eligible based on patient's age to complete this topic Meningococcal Vaccine Aged Out No cindi fe eligible based on patient's age to complete this topic RSV Immunizations Under 20 Months Aged Out No longer eligible based on patient's age to complete this topic Insurance MEDICARE [facility] Care Teams Spanish Linguist Relationship Specialty Start Date End Date Demarcus Zuniga MD [address] [phone] PCP - General INTERNAL MEDICINE 02/23/19
--- OUTSIDE RECORDS SUMMARY | 2024-05-07 17:51 | XMS_ITS | Clinical Summary ---
Author Organization [facility] [address] Address [address] [place] [address] Phone Care Team Providers Care Gear Grinder Name Role Phone Demarcus Zuniga MD Primary Care Provider Tank Hinds MD Unavailable [phone] Bubba Clarke MD Unavailable [phone] Allergies Active Allergy Reactions Criticality Noted Date Comments Lisinopril Cough Low 03/19/2009 Medications Xarelto 20 mg tablet Take 20 mg by mouth daily 1 Active methotrexate 2.5 mg tablet methotrexate sodium 2.5 mg tablet 0 Active Pacerone 200 mg tablet Take 200 mg by mouth daily 1 Active furosemide (LASIX) 40 mg tablet Take 40 mg by mouth daily 1 Active isosorbide mononitrate ER (IMDUR) 30 mg 24 hr tablet Take 30 mg by mouth daily 1 Active folic acid (FOLVITE) 1 mg tablet 1 Active losartan (COZAAR) 25 mg tablet Take 25 mg by mouth daily 1 Active zinc sulfate (ZINCATE) 50 mg zinc (220 mg) capsule Take 220 mg by mouth daily Active metoprolol XL (TOPROL-XL) 50 mg extended release tablet Take 50 mg by mouth daily Active furosemide (LASIX) 20 mg tablet Take 20 mg by mouth daily Once daily with the 40mg tablet Active Active Problems Problem Noted Date Diagnosed Date Fecal smearing 08/28/2020 Encounters Date Type Department Care Team Description 02/07/2024 Orders Only [facility] [address] [place] [address] Unknown, Notinfile from Last 3 Months Surgical History Surgery Date Site/Laterality Comments HERNIA REPAIR EYE SURGERY REPLACEMENT TOTAL KNEE Medical History Medical History Date Comments Arthritis Prostate disorder Pneumonia 04/2020 Family History Medical History Relation Name Comments Cancer Brother Cancer Father Cancer Mother Relation Name Status Comments Brother Father Mother Social History Tobacco Use Types Packs/Day Years Used Date Smoking Tobacco: Former Pipe Q uit: 1975 Smokeless Tobacco: Never Personal Safety Answer Date Recorded Getting School Help Needed Not on file 05/13 Sex and Gender Information Value Date Recorded Sex Assigned at Not on file Legal Sex Male 1:13 AM BLURB WRITER Gender Identity Not on file Sexual Orientation Not on file Obstetrics History Last Filed Vital Signs Vital Sign Reading Time Taken Comments Blood Pressure 133/85 01/01/2021 3:41 PM CDT Pulse 69 01/01/2021 3:41 PM CDT Temperature 36.3 C (97.3 F) 01/01/2021 3:41 PM CDT Respiratory Rate - - Oxygen Saturation 98% 01/01/2021 3:41 PM CDT Inhaled Oxygen Concentration - - Weight 83.9 kg (185 lb) 01/01/2021 3:41 PM CDT Height 180.3 cm (5' 11 ) 01/01/2021 3:41 PM CDT Body Mass Index 25.8 01/01/2021 3:41 PM CDT Plan of Treatment Health Maintenance Due Date Last Done Comments Depression Screening 1940 Fall Risk Assessment 1940 Hepatitis B Screening 1958 Well Visit 65+ 2006 Influenza Vaccine (#1) 2023 3, 12/02/2021, 12/05/2020, Additional history exists DTaP/Tdap/Td Vaccine (2 - Td or Tdap) 01/03/2025 01/03/2015, 02/19/2005, 04/28/2001 Pneumococcal vaccine 65+ Completed 015, 07/29/2014, 12/30/2007, Additional history exists Zoster Vaccine Completed 07/29/2020, 01/28, 04/30/2012, Additional history exists Procedures Procedure Name Priority Date/Time Associated Diagnosis Comments SURGICAL PATHOLOGY Routine 02/07/2024 12 :00 AM BLURB WRITER from Last 3 Months Results * Surgical pathology (02/07/2024 12:00 AM BLURB WRITER) Skin, shave biopsy 02/07/2024 02/08/2024 5:57 AM BLURB WRITER Narrative 02/09/2024 1:06 PM BLURB WRITER EPIC results best viewed via link to PDF [facility] [address] [place] [address], [address], [place] [address] [email or web address] Note to Patients: This report may contain a detailed description of human tissue sent by a health care provider to the laboratory for pathologic evaluation. The content of this report is essential for diagnosis and may provide important critical findings. This information may be unfamiliar to patients to review without a medical professional present. It is advised that the patient review this report in the presence of a health care provider who can answer questions and explain the details. FINAL REPORT Patient Information: PATIENT NAME: TIANA JONES SEX: M : 1940 (Age: 84) Specimen Information: COLLECTED: 02/07/2024 RECEIVED: 02/08/2024 REPORTED: 02/09/2024 Submitting Physician Information: Delicia Strong, [facility], [address] [place] [address], DERMATOPATHOLOGY REPORT RESULTS DIAGNOSIS: A. SKIN, LEFT SUPERIOR KARTHIKEYAN OF ANTIHELIX, SHAVE BIOPSY: SQUAMOUS CELL CARCINOMA IN SITU B. SKIN, LEFT INFERIOR POSTAURICULAR SKIN, SHAVE BIOPSY: SEBORRHEIC KERATOSIS cr/lac By this signature, I attest that the above diagnosis is based upon my personal examination of the slides(and/or other material indicated in the diagnosis). Essie Guillen M.D. Report Electronically Reviewed and Signed Out By Essie Guillen M.D. 02/09/2024 13:06:25 CLINICAL INFORMATION A. NEOPLASM OF UNCERTAIN BEHAVIOR VS IRRITATED SEBORRHEIC KERATOSIS VS BASAL CELL CARCINOMA VS SQUAMOUS CELL CARCINOMA B. NEOPLASM OF UNCERTAIN BEHAVIOR VS DYSPLASTIC NEVUS VS IRRITATED SEBORRHEIC KERATOSIS SPECIMEN DATA MICROSCOPIC DESCRIPTION: A. Atypical keratinocytes are present throughout the entire thickness of the epidermis. (D04.9) B. There is hyperkeratosis, papillated and reticulated epithelial hyperplasia and horn pseudocysts. (L82.1) GROSS DESCRIPTION: A. Received in a formalin-containing bottle is a superficial fragment of pale winston, finely scaling, and semi-translucent skin measuring 1.3 by 0.9 by 0.2 cm. The surgical margin is inked blue. The specimen bears a pink-winston, scaly papule measuring 0.4 by 0.3 by 0.1 cm. The specimen is sectioned into 3 pieces and submitted entirely in a single cassette. Due to shrinkage, measurements may be different than those at the time of procedure. B. Received in a formalin-containing bottle is a superficial fragment of dome- shaped, dark brown, variegated, and scaly skin measuring 1.0 by 0.9 by 0.2 cm. The surgical margin is inked blue. The specimen is sectioned into 3 pieces and submitted entirely in a single cassette. Due to shrinkage, measurements may be different than those at time of procedure. marie/mxf ICD-9 ZSD.1474 ZSD.1411 Clerical Data A; 65215 B; 30060 The characteristics of special, immunohistochemical, and immunofluorescence stains and in-situ hybridization tests performed by the [facility] were deemed acceptable in ongoing quality control assistant measures and in compliance with regulations drawn from the Clinical Laboratory Improvement Act lj1738 (CLIA '88). Control reactions for all stains performed were deemed adequate and appropriate by a pathologist prior to evaluation of patient tissue. Some diagnoses were rendered with the assistance of laboratory-developed tests utilizing analyte-specific reagents; the performance characteristic of these tests were determined by [facility] and are not cleared or approved by the [place] Food an Drug administration. Laboratory developed test may only be performed in a facility that is certified by the [facility] as a high-complexity laboratory under CLIA '88. These tests are used for clinical purposes and are not investigational. us Notinfile Unknown LAB PATHOLOGY ORDERABLES Final Result from Last 3 Months Insurance [facility] CHO[employer] MEDICARE [facility] [place] [address] Care Teams Gear Grinder Relationship Specialty Start Date End Date Demarcus Zuniga MD PCP - General 02/03/18 Tank Hinds MD Referring Physician Gastroenterology 09/29/20 Bubba Clarke MD [id number] [place] [address] Surgeon Colon and Rectal Surgery 09/29/20
--- OUTSIDE RECORDS SUMMARY | 2024-05-07 17:51 | XMS_ITS | Clinical Summary ---
Author Organization [facility] Address [address] [place] [address] Care Team Providers Care Swing Frame Grinder Operator Name Role Phone Demarcus Zuniga MD Primary Care Provider [phone] Allergies Active Allergy Reactions Criticality Noted Date Comments Lisinopril Cough Low 03/19/2009 Medications methotrexate (RHEUMATREX) 2.5 mg Tablet Take 10 mg by mouth every 7 days. Take 4 tablets by mouth weekly. 0 Active folic acid (FOLVITE) 1 mg tablet Take 5 Tablets (5 mg) by mouth daily. 1 Active pyridoxine HCl, vitamin B6, (PYRIDOXINE, VITAMIN B6, ORAL) Take by mouth. Active rivaroxaban (XARELTO) 15 mg Tablet Take 15 mg by mouth. Active multivitamin (DAILY-LAURE) tablet Take 1 Tablet by mouth daily. Active cyanocobalamin (Vitamin B-12) 1,000 mcg Tablet Take 1,000 mcg by mouth daily. Active empagliflozin (JARDIANCE) 10 mg tablet Starting 12/26: Take 1 Tablet (10 mg) by mouth daily in the morning. 30 Tablet 1 12/26/2023 3:35 PM CDT 4 Active spironolactone (ALDACTONE) 25 mg tablet Take 0.5 Tablet (12.5 mg) by mouth daily. 45 Tablet 1 4 Active nystatin (MYCOSTATIN) 100,000 unit/mL suspension SHAKE LIQUID AND TAKE 4 ML BY MOUTH THREE TIMES DAILY 4 Active acetaminophen (TYLENOL) 500 mg tablet Take 1 Tablet (500 mg) by mouth every 6 hours as needed for Pain. 5 Active mexiletine (MEXITIL) 150 mg capsule Take 1 Capsule (150 mg) by mouth every 12 hours. 180 Capsule 3 5 Active metoprolol succinate (TOPROL XL) 25 mg Extended Release 24 hour tablet Take 0.5 Tablets (12.5 mg) by mouth daily. 45 Tablet 2 5 Active torsemide (DEMADEX) 20 mg tablet Take 1 Tablet (20 mg) by mouth 2 times daily. Dose increased. 180 Tablet 1 5 Active mexiletine (MEXITIL) 150 mg capsule Take 1 Capsule (150 mg) by mouth every 12 hours. 180 Capsule 3 4 04/12/19 Discontinu ed(Reorder ) torsemide (DEMADEX) 20 mg tablet Take 1 Tablet (20 mg) by mouth daily. 90 Tablet 1 4 04/13/19 Discontinu ed(Reorder ) metoprolol succinate (TOPROL XL) 25 mg Extended Release 24 hour tablet Take 0.5 Tablets (12.5 mg) by mouth daily. 45 Tablet 1 4 04/16/19 25 Discontinu ed(Reorder ) mexiletine (MEXITIL) 150 mg capsule Take 1 Capsule (150 mg) by mouth every 12 hours. 180 Capsule 3 5 04/13/19 Discontinu ed(Reorder ) torsemide (DEMADEX) 20 mg tablet Take 1 Tablet (20 mg) by mouth daily. 90 Tablet 1 5 05/02/19 25 Discontinu ed(Reorder ) torsemide (DEMADEX) 20 mg tablet Take 1 Tablet (20 mg) by mouth 2 times daily. Dose increased. 180 Tablet 1 5 05/05/19 Discontinu ed(Reorder ) Active Problems Patient Care Coordination No te Formatting of this note migh t be different from the original. Raul Varela MD- [facility] ( [place]) Praveen Ann MD-[facility] @ Problem Noted Date Diagnosed Date Longstanding persistent atrial fibrillation 11/29 Pleural effusion 12/23/2023 Acute on chronic HFrEF (hear t failure with reduced ejection fraction) 12/23/2023 Persistent atrial fibrillation 12/22/2023 Ventricular tachycardia 12/22/2023 Sustained ventricular tachycardia 12/22/2023 Cardiomyopathy 12/21/2023 Acute on chronic systolic congestive heart failu re 10/28/2022 S/P placement of cardiac pacemaker 10/28/2022 Bilateral pleural effusion 10/28/2022 Chronic kidney disease, stage 3a 10/28/2022 JERRY on CPAP 10/28/2022 Benign essential hypertension 10/28/2022 Hyperlipidemia 10/28/2022 Sensorineural hearing loss, bilateral 10/28/2022 Chronic combined systolic and diastolic CHF, NYH A class 3 10/28/2022 Pleural effusion on right 10/28/2022 Shortness of breath 10/28/2022 Severe protein-calorie malnutrition 10/28/2022 NICM (nonischemic cardiomyopathy) 06/18/2020 Left bundle branch block 06/18/2020 CHF NYHA class III 06/18/2020 Rheumatoid arthritis 05/29/2019 Benign prostatic hyperplasia 08/12/2017 Resolved Problems Problem Noted Date Diagnosed Date Resolved Date PAF (paroxysmal atrial fibrillation) 06/18/2020 12/26/2023 Encounters Date Type Department Care Team Description 05/07/[address] [facility] [address] [place] [address] [address] [place] [address] Raul Varela MD Needs Form Or Letter Filled Out 05/07/[address] [facility] Cardiovas and Thor Surg at [place] [address] [facility] [address] [place] [address] Abdulkadir Corrigan MD thick opaque drainage 05/04/2024 3:00 PM NUCLEAR FUEL ENRICHMENT TECHNICIAN Procedure visit [facility] EP AT [place] [address] [facility] [address] [place] [address] NICM (nonischemic cardiomyopathy) (CMS/HCC) (Primary Dx); ICD (implantable cardioverter-defibrill ator) in place 05/04/[address] [facility] [address] [facility] [address] [place] [address] Raul Varela MD 05/02/2024 1:15 PM NUCLEAR FUEL ENRICHMENT TECHNICIAN Office Visit [facility] Cardiovas and Thor Surg at [address] [place] [address] Abdulkadir Corrigan MD Pleural effusion (Primary Dx); Acute on chronic HFrEF (heart failure with reduced ejection fraction) ([facility]) 05/01/[address] [facility] - [facility] [address] [facility] [address] [place] [address] Raul Varela MD Swelling 04/30/[address] [facility] Cardiovas and Thor Surg at [address] [address] Abdulkadir Corrigan MD drainage from pleurx catheter site 04/27/[address] [facility] Cardiovas and Thor Surg at [address] [place] [address] Abdulkadir Corrigan MD Information 04/25/2024 2:29 PM NUCLEAR FUEL ENRICHMENT TECHNICIAN - 04/25/2024 11:59 PM NUCLEAR FUEL ENRICHMENT TECHNICIAN Hospital Encounter [facility] [place] [address] [place] [address] Abdulkadir Corrigan MD Discharge Disposition: Home or Self Care 04/25/2024 2:15 PM NUCLEAR FUEL ENRICHMENT TECHNICIAN Office Visit [facility] Cardiovas and Thor Surg at [address] [place] [address] Dom Chan PA Bilateral pleural effusion (Primary Dx) 04/25/[address] [facility] Cardiovas and Thor Surg at [address] [place] [address] Abdulkadir Corrigan MD Information 04/23/[address] [facility] Cardiovas and Thor Surg at [address] [place] [address] Abdulkadir Corrigan MD Information 04/23/2024 Telephone [facility] [address] [place] [address] Raul Varela MD Symptoms 04/19/2024 2:45 PM NUCLEAR FUEL ENRICHMENT TECHNICIAN Office Visit [facility] [address] [place] [address] Raul Varela MD NICM (nonischemic cardiomyopathy) (CMS/HCC) (Primary Dx); Ventricular tachycardia (CMS/HCC); Persistent atrial fibrillation (CMS/HCC); Acute on chronic HFrEF (heart failure with reduced ejection fraction) (CMS/HCC); Pleural effusion on right 04/18/[address] [facility] Cardiovas and Thor Surg at [facility] [address] [facility] [address] [place] [address] Abdulkadir Corrigan MD Information 04/18/[address] [facility] At [place] [address] [facility] [address] [place] [address] Raul Varela MD Leakage 04/16/2024 Telephone [facility] [address] [place] [address] Raul Varela MD Medication Question 04/13/2024 Telephone [facility] [address] [place] [address] Raul Varela MD medication refill 04/12/2024 Telephone [facility] [address] [place] [address] Raul Varela MD Medication prescription 04/09/2024 11:00 AM NUCLEAR FUEL ENRICHMENT TECHNICIAN Office Visit [facility] [place] [address] [facility] [address] [place] [address] Ryan Laughlin MD Palliative care by specialist (Primary Dx); Persistent atrial fibrillation (CMS/HCC); Cardiomyopathy, unspecified type (CMS/HCC); Ventricular tachycardia (CMS/HCC); S/P placement of cardiac pacemaker; Chronic systolic congestive heart failure, NYHA class 3 (CMS/HCC); Pleural effusion 04/02/[address] [facility] Cardiovas and Thor Surg at [address] [place] [address] Abdulkadir Corrigan MD Question 03/30/[address] [facility] Cardiovas and Thor Surg at [address] [address] Abdulkadir Corrigan MD 03/23/2024 2:00 PM NUCLEAR FUEL ENRICHMENT TECHNICIAN Office Visit [facility] Cardiovas and Thor Surg at [address] [address] Pleural effusion (Primary Dx) 03/23/[address] [facility] Cardiovas and Thor Surg at [address] [address] Abdulkadir Corrigan MD Information 03/21/2024 External Device Data STL ABSTRACTION Provider, Abstract 03/21/[address] [facility] Cardiovas and Thor Surg at [address] [address] Abdulkadir Corrigan MD Information 03/19/[address] [facility] At [address] [place] [address] Raul Varela MD Needs Appointment 03/19/[address] [facility] Cardiovas and Thor Surg at [address] [address] Abdulkadir Corrigan MD Information 03/19/2024 Chart Note [facility] EP AT [address] [place] [address] Praveen Ann MD ICD CHECK (ATP Alert) 03/15/2024 2:45 PM NUCLEAR FUEL ENRICHMENT TECHNICIAN Office Visit [facility] - [facility] [address] [place] [address] Raul Varela MD Congestive heart failure, NYHA class 4, unspecified congestive heart failure type (CMS/HCC) (Primary Dx); NICM (nonischemic cardiomyopathy) (CMS/HCC); Ventricular tachycardia (CMS/HCC); Persistent atrial fibrillation (CMS/HCC); Pleural effusion 03/15/2024 [facility]phone [facility] [address] [facility] [address] [place] [address] Alisa Vizcaino DO Referral 03/14/2024 4:36 PM NUCLEAR FUEL ENRICHMENT TECHNICIAN Anesthesia Event [facility] CV Operating Room [address] [place] [phone] Raymond Duran MD Bigham, Matthew, MD 03/14/2024 2:18 PM NUCLEAR FUEL ENRICHMENT TECHNICIAN - 03/14/2024 3:18 PM NUCLEAR FUEL ENRICHMENT TECHNICIAN Surgery [facility] CV Operating Room [address] [place] [address] Abdulkadir Corrigan MD PLEURAL CATHETER INSERTION 03/14/2024 12:38 PM NUCLEAR FUEL ENRICHMENT TECHNICIAN - 03/14/2024 7:11 PM NUCLEAR FUEL ENRICHMENT TECHNICIAN Hospital Encounter [facility] Interventional Care [address] [place] [address] Abdulkadir Corrigan MD Pleural effusion Discharge Disposition: Home or Self Care 03/13/[address] [facility] [address] [place] [address] Raul Varela MD Question 03/13/[address] [facility] Cardiovas and Thor Surg at [facility] [address] [facility] [address] [place] [address], rep contacted 03/12/2024 1:00 PM NUCLEAR FUEL ENRICHMENT TECHNICIAN - 03/12/2024 11:59 PM NUCLEAR FUEL ENRICHMENT TECHNICIAN Hospital Encounter [facility] [address] [place] [phone] Abdulkadir Corrigan MD Discharge Disposition: Home or Self Care 03/12/2024 12:00 PM NUCLEAR FUEL ENRICHMENT TECHNICIAN Office Visit [facility] Cardiovas and Thor Surg at [facility] [address] [facility] [address] [place] [address] Abdulkadir Corrigan MD Pleural effusion (Primary Dx); Persistent atrial fibrillation (CMS/HCC); Acute on chronic HFrEF (heart failure with reduced ejection fraction) (CMS/HCC) 03/12/[address], [address] [place] [address] Amy Westfall RN 03/09/[address] [facility] At [address] [place] [address] Raul Varela MD Results 03/08/2024 4:07 PM NUCLEAR FUEL ENRICHMENT TECHNICIAN - 03/08/2024 11:59 PM NUCLEAR FUEL ENRICHMENT TECHNICIAN Hospital Encounter [facility] [place] [address] [place] [phone] Zoie Haley NP Discharge Disposition: Home or Self Care 03/08/2024 2:15 PM NUCLEAR FUEL ENRICHMENT TECHNICIAN Office Visit [facility] EP AT [address] [place] [address] Zoie Haley NP NICM (nonischemic cardiomyopathy) (CMS/HCC) (Primary Dx); ICD (implantable cardioverter-defibrill ator) in place; Other persistent atrial fibrillation (CMS/HCC); Hx of atrioventricular node ablation; Benign essential hypertension; Hyperlipidemia, unspecified hyperlipidemia type; Pleural effusion; Encounter for monitoring anti-arrhythmic therapy 02/21/2024 7:44 AM NUCLEAR FUEL ENRICHMENT TECHNICIAN - 02/21/2024 11:59 PM NUCLEAR FUEL ENRICHMENT TECHNICIAN Hospital Encounter [facility] Interventional Radiology [facility] [address] [place] [phone] Raul Varela MD Nur [facility] Discharge Disposition: Home or Self Care 02/17/2024 Telephone [facility] Vascular [facility] [address] [place] [address] Raul Varela MD Results 02/14/2024 Telephone [facility] [address] [place] [address] Raul Varela MD Question 02/14/2024 Telephone [facility] A [address] [place] [address] CamiloCatarinoing, ANP Follow Up 02/14/2024 Telephone [facility] A [address] [place] [address] Camilo Suping, ANP Follow Up 02/13/2024 2:38 PM NUCLEAR FUEL ENRICHMENT TECHNICIAN - 02/13/2024 11:59 PM NUCLEAR FUEL ENRICHMENT TECHNICIAN Hospital Encounter [facility] Interventional Radiology S [facility] [address] [place] [address] Ralu Varela MD Nur, [facility] Discharge Disposition: Home or Self Care 02/10/2024 Telephone [facility] [address] [place] [address] Raul Varela MD Results 02/09/2024 11:12 AM NUCLEAR FUEL ENRICHMENT TECHNICIAN - 02/09/2024 11:59 PM NUCLEAR FUEL ENRICHMENT TECHNICIAN Hospital Encounter [facility] [address] [facility] [address] [place] [address] Raul Varela MD Discharge Disposition: Home or Self Care 02/09/2024 10:30 AM NUCLEAR FUEL ENRICHMENT TECHNICIAN Office Visit [facility] [address] [place] [address] Raul Varela MD Pleural effusion on right (Primary Dx); 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; NICM (nonischemic cardiomyopathy) (CMS/HCC); Dyspnea on exertion from Last 3 Months Immunizations Immunization Administration Dates Next Due (ADACEL/BOOSTRIX)(10 YR UP) TDAP VACCINE, 0.5ML, IM 01/03/2015 (PNEUMOVAX 23)(50 YRS UP) PN EUMOCOCCAL POLYSACCHARIDE (PPV23) 0.5 ML, IM 12/30/2007 (PREVNAR 13)(6 WKS UP) PNEUM OCOCCAL CONJUGATE (PCV13) 0.5 ML, IM 08/15/2014,07/29/2014 (SHINGRIX)(50 YRS UP) ZOSTER VACCINE RECOMBINANT, 0.5 ML, IM 02/07/2019 (SPIKEVAX) (12 YRS UP PRIMAR Y SERIES) COVID-19 VACCINE - MRNA-1273(PF) 100 MCG/0.5 ML IM SUSP 02/06/2021,02/06/2021,07/29/2020,07/01,06/30/2020,04/20/2020,03/20/2020 INFLUENZA VACCINE HIGH DOSE QUADRIVALENT 65 YR UP PF IM 12/02/2021 INFLUENZA VACCINE QUADRIVALE NT 6 MOS UP IM 11/10/2020 Influenza Seasonal Unspecifi ed Formulation IM 10/30/2019 Influenza Vaccine High Dose 65+ Yrs IM 7,11/14/2013,11/18/2012 Influenza, Unspecified Formulation 12/02,12/05/2020,11/03/2017,11/28,11/29/2014,10/29/2013,11/13/2012 ,11/13/2011,11/12/2010,11/28/2009,0902/2008,12/08/2007,11/28/2006, 6,12/30/2004 Pneumococcal vaccine, unspec ified formulation 04/22/2006 Td(adult) Unspecified Formulation 02/19/2005 Zoster Vaccine Live SQ 04/30/2012,03/19/2009 Family History Medical History Relation Name Comments Arrhythmia Sister Pacemaker Sister Relation Name Status Comments Sister Social History Tobacco Use Types Packs/Day Years Used Date Smoking Tobacco: Former Smokeless Tobacco: Never Tobacco Cessation:Counseling Given: Not Answered Alcohol Use Standard Drinks/Week Comments Not Currently [...] Sign Reading Time Taken Comments Blood Pressure 110/50 05/02/2024 1:17 PM NUCLEAR FUEL ENRICHMENT TECHNICIAN Pulse 72 05/02/2024 1:17 PM NUCLEAR FUEL ENRICHMENT TECHNICIAN Temperature 36.1 C (97 F) 03/14/2024 5:16 PM NUCLEAR FUEL ENRICHMENT TECHNICIAN Respiratory Rate 25 03/14/2024 6:45 PM NUCLEAR FUEL ENRICHMENT TECHNICIAN Oxygen Saturation 99% 05/02/2024 1:17 PM NUCLEAR FUEL ENRICHMENT TECHNICIAN Inhaled Oxygen Concentration - - Weight 67.1 kg (148 lb) 05/02/2024 1:17 PM NUCLEAR FUEL ENRICHMENT TECHNICIAN Height 177.8 cm (5' 10 ) 05/02/2024 1:17 PM NUCLEAR FUEL ENRICHMENT TECHNICIAN Body Mass Index 21.24 05/02/2024 1:17 PM NUCLEAR FUEL ENRICHMENT TECHNICIAN Plan of Treatment Upcoming Encounters Date Type Department Care Team (Late st Contact Info) Description 05/24/2024 2:45 PM CDT Office Visit [facility] - [address] [address] Raul Varela MD [address] [place] [address] [address] [place] [address] 06/07/2024 9:30 AM CDT Office Visit [facility] EP AT [address] [place] [address] Praveen Ann MD [address] [place] [address] [address] [place] [address] 08/08/2024 12:30 PM CDT Procedure visit [facility] EP AT [facility] [address] [facility] [address] [place] [address] Health Maintenance Due Date Last Done Comments DIABETES ANNUAL FOOT EXAM 1958 DIABETES MICROALBUMIN ANNUAL SCREEN 1959 RSV VACCINE (60+ or ) (1 - 1-dose 75+ series) 02/02/2016 ZOSTER VACCINE (3 of 3) 04/04/2019 02/08/20, 04/30/2012, 03/19/2009 DIABETES ANNUAL RETINAL EXAM 01/30/202204/2020, 09/30/2020, 12/24/2019 DIABETES HBA1C Q 6 MONTHS 05/14/20242023, 11/15/2023, 11/15/2023, Additional history exists COVID-19 Vaccine ( season) 2024 11/28/2023, 12/06/2022, 12/28/2021, Additional history exists LDL CHOLESTEROL ANNUAL 12/22/2024 12/23/2023 DTAP/TDAP/TD VACCINES (2 - T d or Tdap) 01/03/2025 01/03/2015, 02/19/2005 PNEUMOCOCCAL VACCINE 50+ YEARS Completed 0 08/15/2014, 07/29/2014, 12/30/2007, Additional history exists COLORECTAL SCREENING Discontinued 03/05/2021, 03/05/2021, 12/01/2017 Colorectal Cancer Screening Discontinued INFLUENZA VACCINE Completed 12/20/2023, , 12/02/2021, Additional history exists FIT-DNA Q 3 years Discontinued FIT/FOBT Q 1 year Discontinued Flex Sig/CT Colonography Q 5 years Discontinued Medical Devices Implanted Type Area Dross Puller Device Identifier Shelf Expiration Date Model / Serial / Lot Dev Vns Vasc Clsr Vascade Mvp St [id number] - [id number] Implanted:Qty: 1 on 01/01/2022 at [facility] Closure Device Right: Groin [employer] 08/06/2023 [id number] -[id number] / / [id number] Dev Vasc Closure Vascade 5fr [id number] - [id number] Implanted:Qty: 1 on 12/24/2023 by Sue Routing Machine Operator Mary) MD Noe at [facility] Closure Device N/A: [employer] [id number] 07/06/2025 [id number] X-[id number] / / [id number] Dev Vns Vasc Clsr Vascade Mvp St [id number] - [id number] Implanted:Qty: 1 on 12/24/2023 by Sue Routing Machine Operator () MD Noe at [facility] Closure Device N/A: [employer] [id number] 08/02/2025 [id number] -10U / / [id number] [employer] Production Worker D [place] Hf [id number] - [id number] Implanted:Qty: 1 on 06/30/2020 by Praveen Ann MD at [facility] Defibrillator Left: Chest [facility] [employer] 04/27/2022 [id number] / [id number] / Lead Hp Durata 65cm 7122q-65 - [id number] Implanted:Qty: 1 on 06/30/2020 by Praveen Ann MD at [facility] Lead Left: Heart [facility] [employer] 03/30/2023 7122Q-65 / [id number] / Lead Pace Quartet 86cm Wi Spm 1458ql/86 - [id number] Implanted:Qty: 1 on 06/30/2020 by Praveen Ann MD at [facility] Lead Left: Heart [facility]IG[facility] [employer] 03/30/2023 1458QL/8 6 / [id number] / Lead Pcmkr Tendril St Optm 8tc-46 - [id number] Implanted:Qty: 1 on 06/30/2020 by Praveen Ann MD at [facility] Lead Left: Heart [facility]IG[facility] [employer] 03/30/2023 2088TC/4 6 / [id number] / Procedures Procedure Name Priority Date/Time Associated Diagnosis Comments UT REM INTERROG PM/LDLS PM/IDS <90 D TECH REVIEW Routine 05/03/2024 8:08 PM NUCLEAR FUEL ENRICHMENT TECHNICIAN NICM (nonischemic cardiomyopathy) (CMS/HCC) ICD (implantable cardioverter-defibri llator) in place UT INTERROGATION EVAL REMOTE </90 D 1/2/ALCOHOL LAW ENFORCEMENT AGENT LD DFB Routine 05/03/2024 8:08 PM NUCLEAR FUEL ENRICHMENT TECHNICIAN NICM (nonischemic cardiomyopathy) (CMS/HCC) ICD (implantable cardioverter-defibri llator) in place XR CHEST PA AND LATERAL 2 VW Routine 04/25/2024 3:21 PM NUCLEAR FUEL ENRICHMENT TECHNICIAN Pleural effusion XR CHEST PA OR AP 1 VW Stat 03/14/2024 5:39 PM NUCLEAR FUEL ENRICHMENT TECHNICIAN PLEURODESIS THORACOSCOPIC 03/14/2024 2:18 PM NUCLEAR FUEL ENRICHMENT TECHNICIAN Pleural effusion UT INSERTION INDWELLING TUNNELED PLEURAL CATHETER 03/14/2024 2:18 PM NUCLEAR FUEL ENRICHMENT TECHNICIAN Pleural effusion PT AND APTT Routine 03/14/2024 2:11 PM NUCLEAR FUEL ENRICHMENT TECHNICIAN Persistent atrial fibrillation (CMS/HCC) Acute on chronic HFrEF (heart failure with reduced ejection fraction) (CMS/HCC) Pleural effusion COMPREHENSIVE METABOLIC PANEL Routine 03/14/2024 2:10 PM NUCLEAR FUEL ENRICHMENT TECHNICIAN Persistent atrial fibrillation (CMS/HCC) Acute on chronic HFrEF (heart failure with reduced ejection fraction) (CMS/HCC) Pleural effusion CBC WITH DIFFERENTIAL Routine 03/14/2024 2:10 PM NUCLEAR FUEL ENRICHMENT TECHNICIAN Persistent atrial fibrillation (CMS/HCC) Acute on chronic HFrEF (heart failure with reduced ejection fraction) (CMS/HCC) Pleural effusion PREPARE RED BLOOD CELLS Routine 03/14/2024 12:39 PM NUCLEAR FUEL ENRICHMENT TECHNICIAN PREPARE RED BLOOD CELLS Routine 03/14/2024 12:39 PM NUCLEAR FUEL ENRICHMENT TECHNICIAN Persistent atrial fibrillation (CMS/HCC) Acute on chronic HFrEF (heart failure with reduced ejection fraction) (CMS/HCC) Pleural effusion TYPE AND SCREEN Routine 03/12/2024 3:47 PM NUCLEAR FUEL ENRICHMENT TECHNICIAN PT AND APTT Routine 03/12/2024 3:47 PM NUCLEAR FUEL ENRICHMENT TECHNICIAN CBC WITH DIFFERENTIAL Routine 03/12/2024 3:47 PM NUCLEAR FUEL ENRICHMENT TECHNICIAN COMPREHENSIVE METABOLIC PANEL Routine 03/12/2024 3:47 PM NUCLEAR FUEL ENRICHMENT TECHNICIAN UT ECG ROUTINE ECG W/LEAST 12 LDS W/I&R Routine 03/08/2024 5:11 PM NUCLEAR FUEL ENRICHMENT TECHNICIAN NICM (nonischemic cardiomyopathy) (CMS/HCC) XR CHEST PA AND LATERAL 2 VW Stat 03/08/2024 4:14 PM NUCLEAR FUEL ENRICHMENT TECHNICIAN Pleural effusion US ASPIRATION LUNG RIGHT Routine 02/21/2024 8:16 AM NUCLEAR FUEL ENRICHMENT TECHNICIAN Moderate sized pleural effusion US ASPIRATION LUNG RIGHT Routine 02/13/2024 3:06 PM NUCLEAR FUEL ENRICHMENT TECHNICIAN Pleural effusion, right XR CHEST PA AND LATERAL 2 VW Stat 02/09/2024 11:33 AM NUCLEAR FUEL ENRICHMENT TECHNICIAN Pleural effusion on right Biventricular ICD (implantable cardioverter-defibri llator) in place NICM (nonischemic cardiomyopathy) (CMS/HCC) Dyspnea on exertion LIPID PANEL Routine 12/23/2023 2:38 AM CDT HEMOGLOBIN A1C Routine 11/15/2023 9:51 AM CDT from Last 3 Months or Most Recently Relevant to Health Maintenance Results * UT INTERROGATION EVAL REMOTE </90 D 1/2/ALCOHOL LAW ENFORCEMENT AGENT LD DFB, [place] REM INTERROG PM/LDLS PM/IDS <90 D TECHREVIEW (05/03/2024 8:08 PM NUCLEAR FUEL ENRICHMENT TECHNICIAN) 05/03/2024 8:08 PM NUCLEAR FUEL ENRICHMENT TECHNICIAN Narrative INTERFACE SYSTEM - 05/04/2024 7:33 AM NUCLEAR FUEL ENRICHMENT TECHNICIAN Remote [place] Transmission Appropriate BiV ICD function. Presenting Rhythm: AF/BpVs Battery: 3.5 years BVP 74% 1 VT episode, ATPx1 delivered. Previously alerted. 7 NSVT episodes EF 20-25% as of 09/22/2023 Per Epic, Patient takes xarelto, mexiltil, and metoprolol Results sent via [place] Procedure Note Provider, Historical - 05/04/2024 Remote [place] Transmission Appropriate BiV ICD function. Presenting Rhythm: AF/BpVs Battery: 3.5 years BVP 74% 1 VT episode, ATPx1 delivered. Previously alerted. 7 NSVT episodes EF 20-25% as of 09/22/2023 Per [facility], Patient takes xarelto, mexiltil, and metoprolol Results sent via [place] Praveen Ann MD CARDIAC SERVICES ORDERABLES Edit ed Result - Final INTERFACE SYSTEM Refer to clinic/hospital department * XR CHEST PA AND LATERAL 2 VW (04/25/2024 3:21 PM NUCLEAR FUEL ENRICHMENT TECHNICIAN) Only the most recent of3 resultswithin the time period is included. Anatomical Region Laterality Modality Chest Computed Radiogr aphy 04/25/2024 3:21 PM NUCLEAR FUEL ENRICHMENT TECHNICIAN Impressions 04/26/2024 5:17 PM NUCLEAR FUEL ENRICHMENT TECHNICIAN IMPRESSION: The right effusion, which extends into the fissure, with underlying atelectasis. DICTATION LOCATION: 1 Narrative 04/26/2024 5:17 PM NUCLEAR FUEL ENRICHMENT TECHNICIAN EXAMINATION: XR CHEST PA AND LATERAL 2 VW DATE: 04/25/2024 3:21 PM HISTORY: Pleural effusion FINDINGS: Comparison is made to a radiograph from 03/14/2024. A left-sided pacer defibrillator is similar to prior. There is a small right effusion which extends into the fissure, with underlying atelectasis. No pneumothorax. Cardiomediastinal silhouette is stable. Procedure Note Niranjan Zacarias MD - 04/26/2024 EXAMINATION: XR CHEST PA AND LATERAL 2 VW DATE: 04/25/2024 3:21 PM HISTORY: Pleural effusion FINDINGS: Comparison is made to a radiograph from 03/14/2024. A left-sided pacer defibrillator is similar to prior. There is a small right effusion which extends into the fissure, with underlying atelectasis. No pneumothorax. Cardiomediastinal silhouette is stable. IMPRESSION: The right effusion, which extends into the fissure, with underlying atelectasis. DICTATION LOCATION: us Abdulkadir Corrigan MD DIAGNOSTIC IMAGING ORDERABLES Final Result * XR CHEST PA OR AP 1 VW (03/14/2024 5:39 PM NUCLEAR FUEL ENRICHMENT TECHNICIAN) Anatomical Region Laterality Modality Chest Computed Radiogr aphy 03/14/2024 5:39 PM NUCLEAR FUEL ENRICHMENT TECHNICIAN Impressions 03/14/2024 6:08 PM NUCLEAR FUEL ENRICHMENT TECHNICIAN IMPRESSION: Small right basilar pneumothorax. Resolution of right pleural effusion after chest tube placement. DICTATION LOCATION: Location [address] [place] [address] Narrative 03/14/2024 6:08 PM NUCLEAR FUEL ENRICHMENT TECHNICIAN EXAMINATION: XR CHEST PA OR AP 1 VW DATE: 03/14/2024 5:39 PM HISTORY: Post-Operative. Persistent atrial fibrillation; Acute on chronic HFrEF (heart failure with reduced ejection fraction); Pleural effusion COMPARISON: Prior chest radiographs, most recently 03/08/2024. FINDINGS: Interval placement of a right basilar chest tube. Right pleural effusion has resolved. No enlarging left pleural effusion. There is a small right basilar pneumothorax. No left pneumothorax. No new focal consolidation. The cardiomediastinal silhouette is stable. Left chest approach cardiac device is unchanged. Procedure Note Ozzy Corona MD - 03/14/2024 EXAMINATION: XR CHEST PA OR AP 1 VW DATE: 03/14/2024 5:39 PM HISTORY: Post-Operative. Persistent atrial fibrillation; Acute on chronic HFrEF (heart failure with reduced ejection fraction); Pleural effusion COMPARISON: Prior chest radiographs, most recently 03/08/2024. FINDINGS: Interval placement of a right basilar chest tube. Right pleural effusion has resolved. No enlarging left pleural effusion. There is a small right basilar pneumothorax. No left pneumothorax. No new focal consolidation. The cardiomediastinal silhouette is stable. Left chest approach cardiac device is unchanged. IMPRESSION: Small right basilar pneumothorax. Resolution of right pleural effusion after chest tube placement. DICTATION LOCATION: Location [address] [place] [address] us Dom BLUNT DIAGNOSTIC IMAGING ORDERABLES Fi nal Result * (ABNORMAL) PT AND APTT (03/14/2024 2:11 PM NUCLEAR FUEL ENRICHMENT TECHNICIAN) Only the most recent of2 resultswithin the time period is included. PROTIME 17.3(H) 12.7 - 15.1 Seconds 03/14/2024 3:07 PM NUCLEAR FUEL ENRICHMENT TECHNICIAN [facility] INR 1.4(H) 0.9 - 1.1 03/14/2024 3:07 PM [facility] PTT 38.8(H) 24.4 - 36.4 seconds 03/14/2024 3:07 PM [facility] Comment: PTT Therapeutic Range: Heparin Level PTT (seconds) <0.10 units/mL <53 0.10 - 0.30 units/mL 53 - 67 0.30 - 0.70 units/mL* 67 - 95* 0.70 - 1.00 units/mL 95 - 116 *corresponds to therapeutic range for unfractionated heparin Blood Venipuncture / Unknown 03/14/2024 2:11 PM NUCLEAR FUEL ENRICHMENT TECHNICIAN 03/14/2024 2:38 PM NUCLEAR FUEL ENRICHMENT TECHNICIAN Narrative [facility] - 03/14/2024 3:07 PM NUCLEAR FUEL ENRICHMENT TECHNICIAN INR Therapeutic Range: Adult: 2.0 - 3.0 for pulmonary embolism or prophylaxis against venous thrombosis or systemic embolization. 2.0 - 3.0 for patients with tissue heart valves. 2.5 - 3.5 for patients with mechanical heart valves or post FL. Pediatric (12 years and under): 1.5 - 3.0 Although the target range in children is not well established, INR values of 1.5 - 3.0 are recommended for most patients. Higher values have been used in children with prosthetic cardiac valves and hereditary clotting disorders. [place] (<3 days) therapeutic ranges have not been established. us Camila Jm SOFTWARE QUALITY ASSURANCE ANALYST HEMATOLOGY ORDERABLES Final Res ult [id number] [address] [facility] [address] * (ABNORMAL) CBC WITH DIFFERENTIAL (03/14/2024 2:10 PM NUCLEAR FUEL ENRICHMENT TECHNICIAN) Only the most recent of2 resultswithin the time period is included. WBC 9.4 4.0 - 9.8 K/uL 03/14/2024 2:55 PM NUCLEAR FUEL ENRICHMENT TECHNICIAN [facility] RBC 4.52 4.50 - 5.40 M/uL 03/14/2024 2:55 PM NUCLEAR FUEL ENRICHMENT TECHNICIAN [facility] - [facility] HEMOGLOBIN 15.3 13.6 - 16.5 g/dL 03/14/2024 2:55 PM NUCLEAR FUEL ENRICHMENT TECHNICIAN [facility] HEMATOCRIT 47.9 40.0 - 48.0 % 03/14/2024 2:55 PM NUCLEAR FUEL ENRICHMENT TECHNICIAN [facility] MCV 106.0(H) 82.0 - 99.0 fL 03/14/2024 2:55 PM NUCLEAR FUEL ENRICHMENT TECHNICIAN [facility] MCH 33.8(H) 27.2 - 32.6 pg 03/14/2024 2:55 PM NUCLEAR FUEL ENRICHMENT TECHNICIAN [facility] MCHC 31.9 31.5 - 35.5 g/dL 03/14/2024 2:55 PM NUCLEAR FUEL ENRICHMENT TECHNICIAN [facility] RDW 19.2(H) 11.5 - 14.5 % 03/14/2024 2:55 PM NUCLEAR FUEL ENRICHMENT TECHNICIAN [facility] RDW-STDEV 73.2(H) 37.1 - 48.7 fL 03/14/2024 2:55 PM NUCLEAR FUEL ENRICHMENT TECHNICIAN [facility] PLATELETS 275 140 - 350 K/uL 03/14/2024 2:55 PM NUCLEAR FUEL ENRICHMENT TECHNICIAN [facility] MPV 10.2 9.3 - 12.4 fL 03/14/2024 2:55 PM NUCLEAR FUEL ENRICHMENT TECHNICIAN [facility] NEUTROPHILS 88 % 03/14/2024 2:55 PM NUCLEAR FUEL ENRICHMENT TECHNICIAN [facility] LYMPHOCYTES 7 % 03/14/2024 2:55 PM NUCLEAR FUEL ENRICHMENT TECHNICIAN [facility] MONOCYTES 4 % 03/14/2024 2:55 PM NUCLEAR FUEL ENRICHMENT TECHNICIAN [facility] EOSINOPHILS 1 % 03/14/2024 2:55 PM NUCLEAR FUEL ENRICHMENT TECHNICIAN [facility] BASOPHILS 0 % 03/14/2024 2:55 PM NUCLEAR FUEL ENRICHMENT TECHNICIAN [facility] IMMATURE GRANULOCYTES 0 % 03/14/2024 2:55 PM NUCLEAR FUEL ENRICHMENT TECHNICIAN [facility] NEUTROPHIL ABSOLUTE 8.23(H) 1.90 - 7.00 K/uL 03/14/2024 2:55 PM NUCLEAR FUEL ENRICHMENT TECHNICIAN [facility] - . [place] LYMPHOCYTE ABSOLUTE 0.64(L) 0.70 - 4.50 K/uL 03/14/2024 2:55 PM [facility] MONOCYTE ABSOLUTE 0.37 0.10 - 1.30 K/uL 03/14/2024 2:55 PM NUCLEAR FUEL ENRICHMENT TECHNICIAN [facility] EOSINOPHIL ABSOLUTE 0.10 0.00 - 0.70 K/uL 03/14/2024 2:55 PM NUCLEAR FUEL ENRICHMENT TECHNICIAN [facility] BASOPHILS ABSOLUTE 0.02 0.00 - 0.20 K/uL 03/14/2024 2:55 PM [facility] - . [facility] IMMATURE GRANULOCYTES ABSOLUTE 0.03 0.00 - 0.03 K/uL 03/14/2024 2:55 PM [facility] - [facility] Blood Venipuncture / Unknown 03/14/2024 2:10 PM NUCLEAR FUEL ENRICHMENT TECHNICIAN 03/14/2024 2:36 PM NUCLEAR FUEL ENRICHMENT TECHNICIAN us Camila Jm SOFTWARE QUALITY ASSURANCE ANALYST HEMATOLOGY ORDERABLES Final Res ult [facility]# [id number] 5 [facility] [place] [address] * (ABNORMAL) COMPREHENSIVE METABOLIC PANEL (03/14/2024 2:10 PM NUCLEAR FUEL ENRICHMENT TECHNICIAN) Only the most recent of2 resultswithin the time period is included. SODIUM 145 136 - 145 mmol/L 03/14/2024 3:34 PM [facility] [employer] [facility]ORATORY SERVICES [facility]. [facility] POTASSIUM 4.4 3.5 - 5.0 mmol/L 03/14/2024 3:34 PM [facility] LABORATORY [facility] - . [facility] CHLORIDE 107 98 - 107 mmol/L 03/14/2024 3:34 PM [facility] LABORATORY [facility]. [facility] CO2 26 22 - 29 mmol/L 03/14/2024 3:34 PM [facility] LABORATORY [facility]. [facility] CALCIUM 9.7 8.6 - 10.2 mg/dL 03/14/2024 3:34 PM [facility] [employer] LABORATORY SERVICES [facility] BUN 34(H) 8 - 23 mg/dL 03/14/2024 3:34 PM [facility] LABORATORY [facility] CREATININE 1.45(H) 0.67 - 1.17 mg/dL 03/14/2024 3:34 PM [facility] Comment:The GFR result is no t clinically significant on patients <18 or >70 years of age. GLUCOSE 104(H) 74 - 99 mg/dL 03/14/2024 3:34 PM [facility] [employer] LABORATORY SERVICES [facility] TOTAL PROTEIN 7.1 6.7 - 8.6 g/dL 03/14/2024 3:34 PM [facility] ALBUMIN 3.7 3.5 - 5.2 g/dL 03/14/2024 3:34 PM [facility] BILIRUBIN TOTAL 1.4(H) 0.2 - 1.1 mg/dL 03/14/2024 3:34 PM [facility] ALKALINE PHOSPHATASE 71 40 - 129 U/L 03/14/2024 3:34 PM [facility] [employer] LABORATORY [facility] AST 29 <41 U/L 03/14/2024 3:34 PM [facility] ALT 10 <42 U/L 03/14/2024 3:34 PM [facility] GFR 48 mL/min/1.7 3 sq meter 03/14/2024 3:34 PM [facility] Comment:eGFR calculated with 2020 CKD-EPI equation. Vegetarian diet, extremely high or low muscle mass, and may affect results. Cystatin C with Glomerular Filtration Rate is a suitable alternative for these patients. ANION GAP 12 8 - 16 mmol/L 03/14/2024 3:34 PM [facility] LABORATORY [facility] Blood Venipuncture / Unknown 03/14/2024 2:10 PM NUCLEAR FUEL ENRICHMENT TECHNICIAN 03/14/2024 2:37 PM NUCLEAR FUEL ENRICHMENT TECHNICIAN [facility] [employer] LABORATORY SERVICES [facility] - 03/14/2024 3:34 PM NUCLEAR FUEL ENRICHMENT TECHNICIAN Samples containing indocyanine green cause interferences on Total and/or Direct Bilirubin and must not be measured. [facility] CHEMISTRY ORDERABLES Final Resu lt [facility] - [facility]# [id number] [address] [place] [address] * PREPARE RED BLOOD CELLS (03/14/2024 12:39 PM NUCLEAR FUEL ENRICHMENT TECHNICIAN) Only the most recent of2 resultswithin the time period is included. COMPONENT TYPE [id number] [facility]ORATORY SERVICES -- .[facility] COMPONENT IDENTIFICATION [id number] [facility]ATORY SERVICES -- [facility] ABO O [facility] SERVICES -- .[facility] UNIT RH POS [facility] SERVICES -- .[facility] CROSSMATCH Compatible [facility] LABORATORY SERVICES -- .[facility] COMPONENT STATUS Returned [facility] -- [facility] COMPONENT EXPIRATION DATE/TIME [id number] [facility] LABORATORY SERVICES -- [facility] COMPONENT CODING SYSTEM 5100 [facility] LABORATORY SERVICES -- .[facility] VOLUME, BLOOD PRODUCT 273 [facility] LABORATORY SERVICES -- [facility] 03/14/2024 12:3 9 PM NUCLEAR FUEL ENRICHMENT TECHNICIAN Camila Oneal [facility] LAB TRANSFUSION ORDERABLES Edit ed Result - Final [facility] LABORATORY SERVICES -- [facility]# [id number] [address] [place] [address] * TYPE AND SCREEN (03/12/2024 3:47 PM NUCLEAR FUEL ENRICHMENT TECHNICIAN) ABO GROUP O 03/12/2024 7:21 PM NUCLEAR FUEL ENRICHMENT TECHNICIAN [facility] LABORATORY SERVICES -- .[facility] RH (D) TYPE Positive 03/12/2024 7:21 PM NUCLEAR FUEL ENRICHMENT TECHNICIAN [facility] LABORATORY SERVICES -- .[facility] ANTIBODY SCREEN Negative 03/12/2024 7:21 PM NUCLEAR FUEL ENRICHMENT TECHNICIAN [facility] LABORATORY SERVICES -- .[facility] Blood Venipuncture / Unknown 03/12/2024 3:47 PM NUCLEAR FUEL ENRICHMENT TECHNICIAN 03/12/2024 5:25 PM NUCLEAR FUEL ENRICHMENT TECHNICIAN Abdulkadir Corrigan MD BLOOD BANK ORDERABLES Edited R esult - Final [facility]ORATORY SERVICES -- [facility] CLIA# [id number] [address] [place] [address] * UT ECG ROUTINE ECG W/LEAST 12 LDS W/I&R (03/08/2024 5:11 PM NUCLEAR FUEL ENRICHMENT TECHNICIAN) Narrative [facility] - 03/08/2024 5:11 PM NUCLEAR FUEL ENRICHMENT TECHNICIAN Zoie Haley NP 03/08/2024 5:25 PM AF with intermittent BiV pacing and PVCs us Zoie Haley INSTRUCTIONAL SUPERVISOR ECG ORDERABLES Final R esult Performing Organization Address City/[facility]/ZIP Co de Phone Number [facility] CLIA #[id number] [address] [place] [address] * US ASPIRATION LUNG RIGHT (02/21/2024 8:16 AM NUCLEAR FUEL ENRICHMENT TECHNICIAN) Only the most recent of2 resultswithin the time period is included. Anatomical Region Laterality Modality Chest X-Ray Angiograph y 02/21/2024 8:17 AM NUCLEAR FUEL ENRICHMENT TECHNICIAN Impressions 02/21/2024 8:46 AM NUCLEAR FUEL ENRICHMENT TECHNICIAN IMPRESSION: Successful right thoracentesis as detailed above. DICTATION LOCATION: Location 1 - [facility] Narrative 02/21/2024 8:46 AM NUCLEAR FUEL ENRICHMENT TECHNICIAN ULTRASOUND GUIDED THORACENTESIS TIME/DATE: 02/21/2024 8:16 AM. CLINICAL INFORMATION & INDICATION: Male of 84 years age with pleural effusion presents for thoracentesis. CONSENT: The indications, procedures, benefits, and risks (including but not limited to hemothorax and pneumothorax) were discussed with the patient. Informed consent was obtained for the medical record. IR: Tonio Doe MD SEDATION: Local anesthetic. TECHNIQUE: The patient was identified by standard protocol and a timeout was performed at the beginning of the procedure. Maximum sterile technique was utilized for all aspects of the procedure. The pleural spaces was evaluated by ultrasound and image(s) were recorded into the medical record. The subcutaneous tissues were infiltrated with local anesthetic and the right pleural space was accessed with a 5 Kuwaiti catheter loaded on a trocar using realtime ultrasound guidance. After advancing the catheter into the pleural space, the pleural effusion was drained using a vacuum assisted device. At the end of the procedure, the catheter was removed and a sterile dressing was applied. The patient tolerated the procedure well. MEDICATIONS: None ESTIMATED BLOOD LOSS: 2 mL COMPLICATIONS: None FINDINGS: Ultrasound images show a safe drainage path to the pleural effusion. Thoracentesis yielded 2000 mL of santiago pleural effusion. Procedure Note Jeff Doe MD - 02/21/2024 ULTRASOUND GUIDED THORACENTESIS TIME/DATE: 02/21/2024 8:16 AM. CLINICAL INFORMATION & INDICATION: Male of 84 years age with pleural effusion presents for thoracentesis. CONSENT: The indications, procedures, benefits, and risks (including but not limited to hemothorax and pneumothorax) were discussed with the patient. Informed consent was obtained for the medical record. IR: Tonio Doe MD SEDATION: Local anesthetic. TECHNIQUE: The patient was identified by standard protocol and a timeout was performed at the beginning of the procedure. Maximum sterile technique was utilized for all aspects of the procedure. The pleural spaces was evaluated by ultrasound and image(s) were recorded into the medical record. The subcutaneous tissues were infiltrated with local anesthetic and the right pleural space was accessed with a 5 Kuwaiti catheter loaded on a trocar using realtime ultrasound guidance. After advancing the catheter into the pleural space, the pleural effusion was drained using a vacuum assisted device. At the end of the procedure, the catheter was removed and a sterile dressing was applied. The patient tolerated the procedure well. MEDICATIONS: None ESTIMATED BLOOD LOSS: 2 mL COMPLICATIONS: None FINDINGS: Ultrasound images show a safe drainage path to the pleural effusion. Thoracentesis yielded 2000 mL of santiago pleural effusion. IMPRESSION: Successful right thoracentesis as detailed above. DICTATION LOCATION: Location 1 - [facility] us Raul Varela MD ORDERABLES Final Result * LIPID PANEL (12/23/2023 2:38 AM CDT) [facility] CHOLESTEROL 95 <200 mg/dL 12/23/2023 3:51 AM CDT [facility] TRIGLYCERIDE 37 <150 mg/dL 12/23/2023 3:51 AM CDT [facility] HDL 53 40 - 59 mg/dL 12/23/2023 3:51 AM CDT [facility] LDL CALCULATED 35 <100 mg/dL 12/23/2023 3:51 AM CDT [facility] NON-HDL CHOLESTEROL 42 <130 mg/dL 12/23/2023 3:51 AM CDT [facility] Blood Venipuncture / Unknown 12/23/2023 2:38 AM CDT 12/23/2023 3:07 AM CDT Narrative [facility] - [facility] - 12/23/2023 3:51 AM CDT TOTAL CHOLESTEROL mg/dL Desirable <200 Borderline high 200-239 High >=240 TRIGLYCERIDES mg/dL Normal <150 Borderline high 150-199 High 200-499 Very high >=500 HDL CHOLESTEROL mg/dL Low <40 Normal 40-59 Desirable >=60 NON HDL CHOLESTEROL mg/dL Optimal <130 Near Optimal 130-159 Borderline High 160-189 Very High >=190 CALCULATED LDL mg/dL LDL <70, OPTIMAL if have Atherosclerotic cardiovascular disease (ASCVD) or intermediate or higher (>7.5%) 10 year risk of ASCVD including most adults with diabetes. LDL <100, Optimal in adult patients with low (<7.5%) 10 year ASCVD risk LDL 100-160, Suboptimal LDL >160, High LDL >190, Very high ATPIII Guidelines Reference Ranges for Lipid Panels (NCEP/AMA) . Rosalie Person INSTRUCTIONAL SUPERVISOR CHEMISTRY ORDERABLES Final Resu lt [facility] [employer] [facility] [id number] [address] [place] [address] * HEMOGLOBIN A1C (11/15/2023 9:51 AM CDT) Blood Abstract Provider CHEMISTRY ORDERABLES Final Res ult from Last 3 Months or Most Recently Relevant to Health Maintenance Insurance MEDICARE PART A AND B [facility] [employer] Medicare Part D Advance Directives For more information, please contact: [phone] * Full Code (Latest Code Status on File) Date Activated Date Inactivated Comments 12/21/2023 7:52 PM 12/26/2023 5:43 PM * NO CPR (In Event of Cardiopulmonary Arrest) Date Activated Date Inactivated Comments 10/28/2022 12:05 AM 10/30/2022 4:49 PM Question Answer Comments Mechanical Ventilation (for respiratory distress) - Invasive (i.e. intubation): No Mechanical Ventilation (for respiratory distress) - Non-Invasive (i.e. BiPAP, CPAP): Yes * Full Code Date Activated Date Inactivated Comments 01/01/2022 11:58 AM 01/01/2022 5:47 PM * Full Code Date Activated Date Inactivated Comments 01/01/2022 8:01 AM 01/01/2022 11:58 AM * Full Code Date Activated Date Inactivated Comments 06/30/2020 1:57 PM 06/30/2020 5:38 PM Care Teams Swing Frame Grinder Operator Relationship Specialty Start Date End Date Demarcus Zuniga MD [address] [address] PCP - General Internal Medicine 06/16/20
--- OUTSIDE RECORDS SUMMARY | 2024-05-07 17:51 | XMS_ITS | Encounter Summary ---
Author Organization [facility] Address [address] [place] [address] Care Team Providers Care Hand Spring Repairer Helper Name Role Phone Demarcus Zuniga MD Primary Care Provider [phone] Reason for Visit * Reason Onset Date Comments Needs Appointment 03/19/2024 Encounter Details Date Type Department Care Team (Late st Contact Info) Description 03/19/2024 Telephone [facility] [place] [address] [address] [facility] [address] [place] [address] Raul Varela MD [facility] [address] [facility] [address] [place] [address] Needs Appointment Social History Tobacco Use Types Packs/Day Years [...] * Telephone Encounter - Catherine Lawler - 03/19/2024 2:37 PM CST Pt does not need to be rescheduled. GAUGE UNIT OPERATOR * Telephone Encounter - Tori Olson - 03/19/2024 1:44 PM CST Called patient to r/s appointment from 04/19/24. Patient's does not want him to see BRIAN since he always sees Dr. Varela. They want him to see Dr. Varela for his 1 month f/u, but if need be, toschedule him with BRIAN. Please advise and call Bruno at [phone]. Thank You! GAUGE UNIT OPERATOR documented in this encounter Plan of Treatment Upcoming Encounters Date Type Department Care Team (Late st Contact Info) Description 05/24/2024 2:45 PM CDT Office Visit [facility] - [facility] [address] [place] [address] Raul Varela MD [address] [place] [address] 2014 [place] [address] 06/07/2024 9:30 AM CDT Office Visit [facility] AT [address] [place] [address] Praveen Ann MD [address] [place] [address] [address] [place] [address] 08/08/2024 12:30 PM CDT Procedure visit [facility] AT [address] [place] [address] documented as of this encounter Visit Diagnoses Not on filedocumented in this encounter Care Teams Hand Spring Repairer Helper Relationship Specialty Start Date End Date Demarcus Zuniga MD [address] [facility] [address] [place] [address] PCP - General Internal Medicine 06/16/20 documented as of this encounter
--- OUTSIDE RECORDS SUMMARY | 2024-05-07 17:51 | XMS_ITS | Referral Summary ---
Author Organization [facility] [address] Address [address] [place] [address] Phone Care Team Providers Care Painter Foreman Name Role Phone Demarcus Zuniga MD Primary Care Provider Tank Hinds MD Unavailable [phone] Bubba Clarke MD Unavailable [phone] Encounters Date Type Department Care Team Description 02/07/2024 Orders Only [facility] [address] [place] [address] Unknown, Notinfile from Last 3 Months Allergies Active Allergy Reactions Criticality Noted Date [...] Noted Date Diagnosed Date Fecal smearing 08/28/2020 Social History Tobacco Use Types Packs/Day Years Used Date Smoking Tobacco: Former Pipe Q uit: 1975 Smokeless Tobacco: Never Personal Safety Answer Date Recorded Getting School Help Needed Not on file 05/13 Sex and Gender Information Value Date Recorded Sex Assigned at Not on file Legal Sex Male 1:13 AM EXPORT AGENT Gender Identity Not on file Sexual Orientation [...] 01/01/2021 3:41 PM CDT Plan of Treatment Not on file Procedures Procedure Name Priority Date/Time Associated Diagnosis Comments SURGICAL PATHOLOGY Routine 02/07/2024 12 :00 AM EXPORT AGENT from Last 3 Months Results * Surgical pathology (02/07/2024 12:00 AM EXPORT AGENT) Skin, shave biopsy 02/07/2024 02/08/2024 5:57 AM EXPORT AGENT Narrative 02/09/2024 1:06 PM EXPORT AGENT EPIC results best viewed via link to PDF [facility] [address] [place] [address], [address], [place] [address] [email or web address] Note to Patients: This report may contain [...] details. FINAL REPORT Patient Information: PATIENT NAME: BRUNO JONES SEX: M : 1940 (Age: 84) Specimen Information: COLLECTED: 02/07/2024 RECEIVED: 02/08/2024 REPORTED: 02/09/2024 Submitting Physician Information: Delicia Strong, [facility], [address] [place] [address], DERMATOPATHOLOGY REPORT RESULTS DIAGNOSIS: A. SKIN, LEFT [...] marie/mxf ICD-9 ZSD.1474 ZSD.1411 Clerical Data A; 08855 B; 36666 The characteristics of special, immunohistochemical, and immunofluorescence stains and in-situ hybridization tests performed by the [facility] were deemed acceptable in ongoing senior quality assurance engineer measures and in compliance with regulations drawn from the Clinical Laboratory Improvement Act fv9856 (CLIA '88). Control reactions for all stains performed were deemed adequate and appropriate by a pathologist prior to evaluation of patient tissue. Some diagnoses were rendered with the assistance of laboratory-developed tests utilizing analyte-specific reagents; the performance characteristic of these tests were determined by [facility] and are not cleared or approved by the [place] Food an Drug administration. Laboratory developed test may only be performed in a facility that is certified by the [facility] as a high-complexity laboratory under CLIA '88. These tests are used for clinical purposes and are not investigational. us Notinfile Unknown LAB PATHOLOGY ORDERABLES Final Result from Last 3 Months Insurance [facility] CHOICE MEDICARE [employer] Care Teams Painter Foreman Relationship Specialty Start Date End Date Demarcus Zuniga MD PCP - General 02/03/18 Tank Hinds MD Referring Physician Gastroenterology 09/29/20 Bubba Clarke MD [phone] [place] [address] Surgeon Colon and Rectal Surgery 09/29/20
--- OUTSIDE RECORDS SUMMARY | 2024-05-07 17:51 | XMS_ITS | Encounter Summary ---
Author Organization [facility] Address [address] [place] [address] Care Team Providers Care Certified [employer] Engineer Name Role Phone Demarcus Zuniga MD Primary Care Provider [phone] Encounter Details Date Type Department Care Team (Late st Contact Info) Description 03/25/2021 Lab Requisition [facility] [address] [facility] [place] [address] Thaddeus Cevallos MD [address] [place] [address] Social History Tobacco Use Types [...] Priority Date/Time Associated Diagnosis Comments DERMATOPATHOLOGY Routine 03/24/2021 12:0 0 AM RECEIVER/LABORER documented in this encounter Results * DERMATOPATHOLOGY (03/24/2021 12:00 AM RECEIVER/LABORER) Case Report Dermatopathology Report Case: [id number] Authorizing Provider: Thaddeus Cevallos MD Collected: 03/24/2021 12:00 AM Ordering Location: [facility] Received: 03/25/2021 02:00 PM Pathologist: Manas Galvan MD Specimen: Skin, superior sternum 2 4:51 PM RECEIVER/LABORER DERMATOPATHOLOGY LABORATORY Final Diagnosis Specimen A. 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 2 4:51 PM RECEIVER/LABORER DERMATOPATHOLOGY LABORATORY Gross Description Specimen A: Received is one formalin filled container labeled with the patient's name and designated superior sternum. The specimen consists of a curettage and desiccation biopsy measuring [id number], trisected. Jar 0. 2 4:51 PM RECEIVER/LABORER DERMATOPATHOLOGY LABORATORY Microscopic Description Specimen A. SKIN, superior sternum: Arising in the epidermis and extending into the dermis there are irregularly shaped aggregates of keratinocytes showing evidence of premature cornification. 2 4:51 PM RECEIVER/LABORER DERMATOPATHOLOGY LABORATORY Disclaimer An external and internal positive and negative controls are appropriate for the histochemical, immunohistochemical and immunofluorescence stain(s) in this case (if any), except where stated explicitly. The performance characteristics of the stain(s) cited in this report were developed and its performance characteristic determined by the Dermatopathology Laboratory at [facility], directed by Dr. [place] Galvan. These tests need not be, and therefore are not, approved by the [place] Food and Drug Administration. The tests are used for clinical purposes. Billing Codes Specimen Charges Stain Charges 75726 1 2 4:51 PM RECEIVER/LABORER DERMATOPATHOLOGY LABORATORY Embedded Images 2 4:51 PM RECEIVER/LABORER DERMATOPATHOLOGY LABORATORY Pathology/Cytolog y TISSUE SPECIMEN FROM SKIN / Unknown 03/24/2021 03/25/2021 2:00 PM RECEIVER/LABORER Thaddeus Cevallos MD LAB - PATHOLOGY/CYTO LOGY ORDERABLES DERMATOPATHOLOGY LABORATORY [facility] - Department of Dermatology [facility] [address] [place] [address], [address] [phone] documented in this encounter Visit Diagnoses Not on filedocumented in this encounter Care Teams Certified Novell Engineer Relationship Specialty Start Date End Date Demarcus Zuniga MD [address] [place] [phone] PCP - General 03/06/21 documented as of this encounter
--- OUTSIDE RECORDS SUMMARY | 2024-05-07 17:51 | XMS_ITS | Clinical Summary ---
Author Organization [facility] [email or web address] Address [address] [place] [address] Care Team Providers Care Spool Sorter Name Role Phone Demarcus Zuniga MD Primary Care Provider [phone] Source Comments [facility] [email or web address],non-owned Affiliates and Associated Physician Practices is amultiple site organization consisting of ambulatory clinics and hospital sitesin [place], [place] and [place]. This disclosure is being madepursuant to the Care Everywhere program and may not contain all information available regarding this patient. Last updated 17.[facility] [email or web address] Social History Tobacco Use Types Packs/Day Years Used Date Smoking Tobacco: Never Assessed Sex and Gender Information Value Date Recorded Sex Assigned at Not on file Gender Identity Not on file Sexual Orientation Not on file Plan of Treatment Health Maintenance Due Date Last Done Comments MEDICARE AWV 12 MONTHS 1940 DTAP/TDAP/TD VACCINES (1 - Tdap) 02/02/1960 PNEUMOCOCCAL VACCINE 50+ (1 of 1 - PCV) 1991 ZOSTER VACCINE (1 of 2) 1991 Respiratory Syncytial Virus (RSV) Vaccine Pt: or over 60 yrs (1 - 1-dose 75+ series) 02/02/2016 COVID-19 VACCINE ( - 2023-2 5 season) 2023 INFLUENZA VACCINE (#1) 2023 DEPRESSION SCREENING 02/29/2024 HEPATITIS B VACCINE Aged Out No longe r eligible based on patient's age to complete this topic HIB VACCINE Aged Out No longer eligi ble based on patient's age to complete this topic HPV VACCINE Aged Out No longer eligi ble based on patient's age to complete this topic MENINGOCOCCAL (Group B) VACCINE Aged Out No longer eligible based on patient's age to complete this topic MENINGOCOCCAL VACCINE Aged Out No cindi fe eligible based on patient's age to complete this topic Care Teams Spool Sorter Relationship Specialty Start Date End Date Demarcus Zuniga MD [address] [place] [address] [address] [place] [address] PCP - General 03/06/21
--- OUTSIDE RECORDS SUMMARY | 2024-05-07 17:51 | XMS_ITS | Encounter Summary ---
Author Organization [facility] Address [address] [place] [address] Care Team Providers Care Nuclear Cardiology Technologist Name Role Phone Demarcus Zuniga MD Primary Care Provider [phone] Encounter Details Date Type Department Care Team (Late st Contact Info) Description 10/14/2023 Telephone [facility] - [facility] [address] [place] [address] [address] [place] [address] Raul Varela MD [address] [facility] [address] [place] [address] Social History Tobacco Use Types Packs/Day Years Used Date Smoking Tobacco: Former Smokeless Tobacco: Never Alcohol Use Standard Drinks/Week Comments Not Currently 0 (1 standard drink = 0.6 oz pur e alcohol) Feeling Safe Answer Date Recorded Are you in a relationship wi th someone who hurts you emotionally and/or physically? No 10/27/2022 Food Insecurity Answer Date Recorded Social/Environmental Concerns [...] encounter Miscellaneous Notes * Telephone Encounter - Meagan Mcdaniel - 10/14/2023 2:43 PM CDT VOICEMAIL: documented in this encounter Plan of Treatment Upcoming Encounters Date Type Department Care Team (Late st Contact Info) Description 05/24/2024 2:45 PM CDT Office Visit [facility] - [facility] [address] [place] [address] [place] [phone] Raul Varela MD [address] [place] [address] 2014 [place] [address] 06/07/2024 9:30 AM CDT Office Visit [facility] EP AT [address] [place] [address] Praveen Ann MD [address] [place] [address] [address] [place] [address] 08/08/2024 12:30 PM CDT Procedure visit [facility] AT [address] [place] [phone] documented as of this encounter Visit Diagnoses Not on filedocumented in this encounter Additional Health Concerns Infection Onset Date Last Indicated Resolved Time R/O Respiratory 12/21/2023 12/22/2023 12/22/2023 1 2:58 AM CDT documented as of this encounter Care Teams Nuclear Cardiology Technologist Relationship Specialty Start Date End Date Demarcus Zuniga MD [address] [facility] [address] [place] [address] PCP - General Internal Medicine 06/16/20 documented as of this encounter
--- OUTSIDE RECORDS SUMMARY | 2024-05-07 17:51 | XMS_ITS | Data Portability ---
Author Organization [facility], Main Office Address [address] [place] [address] Care Team Providers Care Associate Store Manager Name Role Phone NIC ZUNIGA Primary Care Provider NIC ZUNIGA Referring Provider [phone] Assessment No assessment recorded. Plan of Treatment Reminders Order Date Submit Date Provider Last Modified By Organization Details Last Modified Time Details Appointments None recorded. Lab CBC w/ auto diff 024 024 [id number] [facility], [address] [place] [address], [id number], 4 17:30:09 TSH, ultra-sen sitive, serum 024 024 [email or web address] [facility], [address] [place] [address], [id number], 4 17:30:09 T4, free, serum 024 024 [email or web address] [facility], [address] [place] [address], [id number], 4 17:30:10 lipid panel, serum 024 024 [id number] [facility], [address] [place] [address], [id number], 4 17:30:10 CMP, serum or plasma 024 024 [id number] [facility], [address] [place] [address], [id number], 4 17:30:10 Referral None recorded. Procedures None recorded. Surgeries None recorded. Imaging None recorded. Medication Orders Medrol (Umer) 4 mg tablets in a dose pack [address] [place] [address] [id number], 2 [facility], [place], [place], [id number], 11:35:10 Patient TargetsNo targets recorded. Patient Instructions Encounter Date Encounter Id Patient Instructions Last Modified By Organization Details Last Modified Time 05/10/2023 [id number] dementia rating scale-2* [email or web address] Not available 05/10/2023 15:16:31 alcohol misuse* Not available 05/10/2023 15:16:31 depression screening* Not available 05/10/2023 15:16:32 Timed Up and Go test (TUG)* Not available 05/10/2023 15:16:32 multi-dimensiona l health assessment questionnaire* [email or web address] Not available 05/10/2023 15:16:32 Personalized a lt Plan and Screening Recommendations Advance Directives - Do you have one? Yes Advance Directives - Do we have your advance directive on file in your health record? No, please bring in a copy at your earliest convenience Primary Prevention/Interven tion (prevents or decreases the chance of common diseases from occurring) Smoking Risk: Non Smoker Alcohol Misuse Screening: Negative Weight: Appropriate Physical activity: Need more exercise/physical activity Nutrition: Good Average Fall Risk (screened today): Low Vaccines Pneumococcal: Ordered Recommended today Recommended today, but you have declined No further needed Influenza: Your next one in the fall of this year Chronic Disease Risks Stroke: Low Risk Intermediate Risk I have no recommendations Act madhuri diagnosis, Continue current treatment plan Heart Attack: Low risk Intermediate Risk I have no recommendations Act madhuri diagnosis, Continue current treatment plan Clogging of the Arteries: Low risk Intermediate Risk I have no recommendations Act madhuri diagnosis, Continue current treatment plan Diabetes: Low Risk I have no recommendations Secondary Prevention/Interven tion (detects treatable diseases before they may cause symptoms, disability, or ) Prostate Cancer Screening: Colon Cancer Screening: Colonoscopy Date Screening Last Performed: __2021 Eye Disease Screening: Dementia Risk: Low I have no recommendations Depression Screening: Negative [email or web address] Not available 05/10/2023 15:08:57 [facility] assessment stable. Follow-up for cardiomyopathy, paroxysmal atrial fibrillation, hypertension hyperlipidemia. Plan to check blood work consisting of CBC, CMP, lipid, thyroid. Continue on current Rx follow-up in four months.Standard immunizations of RSV, COVID, influenza and shingles as recommended. Portions of the record may have been created with voice recognition software. Occasional wrong-word or uolfd-x-soey substitutions may have occurred due to the inherent limitations of voice recognition software. Read the chart carefully and recognize, using context, where substitutions have occurred. [email or web address] Not available 05/10/2023 15:15:51 09/13/2023 [id number] Follow-up congestive cardiomyopathy, essential hypertension, atrial fibrillation, hyperlipidemia all clinically stable. Currently is doing well otherwise. Will continue on current medications. Had blood work performed recently by Rheumatology which looked adequate. The creatinine is marginally elevated 1.32. This is in the same range where he had previously. Will continue on current medication can hold on doing any additional blood work at this time and follow-up in four months. Next Appointment: 4 Months Approximate Date: 01/11/2024 Portions of the record may have been created with voice recognition software. Occasional wrong-word or xrjjm-a-flrr substitutions may have occurred due to the inherent limitations of voice recognition software. Read the chart carefully and recognize, using context, where substitutions have occurred. Not available 09/13/2023 15:25:32 10/04/2023 [id number] Cervical neck pa in thought to be secondary to degenerative joint disease. Obtain radiographic studies the area will also give a Medrol Dosepak again. If recurrence will get a CT scan of the cervical spine without contrast Additional Orders and/or Directives: 1. x-rays of the cervical spine Keep Appointment: Tue 01:50 PM Declan Portions of the record may have been created with voice recognition software. Occasional wrong-word or fsszc-d-qqvo substitutions may have occurred due to the inherent limitations of voice recognition software. Read the chart carefully and recognize, using context, where substitutions have occurred. Not available 10/04/2023 12:03:13 10/27/2023 [id number] Lightheadedness thought to be secondary more to postural changes as well as slightly low blood pressure. Will reduce the furosemide from 80 mg daily to 40 mg daily and see if there is any improvement in his symptoms. Instructed patient dropped by in a week get blood pressure checked Additional Orders - Directives - Recommendations 1. drop by next just get his blood pressure checked Keep Appointment: Tue 01:50 PM Declan Portions of the record may have been created with voice recognition software. Occasional wrong-word or efduu-x-tzyc substitutions may have occurred due to the inherent limitations of voice recognition software. Read the chart carefully and recognize, using context, where substitutions have occurred. 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 All clinically stable. Will continue on current Rx check in four months lung with his . Follow Up: 4 Months Approximate Date: 05/09/2024 Portions of the record may have been created with voice recognition software. Occasional wrong-word or amaru-a-poxh substitutions may have occurred due to the inherent limitations of voice recognition software. Read the chart carefully and recognize, using context, where substitutions have occurred. [email or web address] Not available 01/10/2024 17:04:59 Reason for Referral None Reported. Results Created Date Observation Date Name Description Value Unit Range Abnormal Flag Note LastModifiedBy Organization Detail LastModifiedTime 11/15/19 24 11/16/2023 HEMOG LOBIN A1C hemoglobin A1C 5.5 %_of_ total _HGB <5.7 normal For the purpo se of penny ty for the prese nce of diabe luly: <5.7% Consi stent with the absen ce of diabe luly 5.7-6 .4% Consi stent with incre ased risk for diabe luly (pred iabet es) > or =6.5% Consi stent with diabe luly This assay resul t is consi stent with a decre ased risk of diabe luly. Curre ntly, no conse nsus exist chantel rizvi use of hemog lobin A1c for diagn osis of diabe luly in child nilo. Accor ding to Ameri can Diabe luly Assoc iatio n (ADA) guide lines , hemog lobin A1c <7.0% repre sents optim al contr ol in non-p regna nt diabe tic patie nts. Diffe rent metri cs may apply to speci fic patie nt popul ation s. Stand ards of Medic al Care in Diabe luly(A DA). This test was perfo rmed on the Selena padmini c503 platf orm. Effec tive , a staton e in test platf orms from the [facility] t [employer] t[employer] to the Selena padmini c503 may have shift ed HbA1c resul ts rachell red to histo rical resul ts. Based on labor atory valid ation testi ng condu cted at [facility] , the [facility] platf orm relat madhuri to the [employer] platf orm had an avera ge incre ase in HbA1c value of < or = 0.3%. This diffe rence is withi n accep kelby varia bilit y estab lishe d by the Natio nal [employer] hemog lobin Stand ardiz ation Progr am. Note that not all indiv idual s will have had a shift in their resul ts and direc t rachell rison s betwe en histo rical and curre nt resul ts for testi ng condu cted on diffe rent platf orms is not recom lis d. Not Available [facility] [address] [place], [address], 11/16/2023 05:55:45 10/03/19 24 09/12/2023 lab* No observ ation record ed. [email or web address] Not Available 2023 14:08:17 10/03/19 24 09/12/2023 lab* No observ ation record ed. [email or web address] Not Available 2023 16:12:20 10/04/19 24 XR, cervi mejia spine , 2 or 3 view [facility] [address], [facility] [place] [address] Patien t Name: REBEKAH ANDRADE Access ion #: [id number] Sex: M : 1939 5 Dictat ed By: Brittaney Cheng Attend ing Physic hakan: KETTY ZUNIGA CE Orderi Physic hakan: KETTY ZUNIGA CE Exam Date: 2023 11:29 AM Exam Name: XR C SPINE 2-3V Admitt ing Diagno sis(es ): INDICA TION: radicu lopath y TECHNI QUE: 3 views of the cervic al spine were obtain ed. COMPAR CATHY: None FINDIN GS: The cervic al spine is visual ized from C1-C7. There is loss of the normal cervic al lordos is which can be positi onal. No fractu res or sublux ations are identi fied. Mild degene rative change s of the cervic al spine with mild degene rative anteri or osteop hyte format ion and disc osteop hyte hypert rophy. Alignm ent appear s unrema rkable . Prever tebral soft tissue s are within normal limits . IMPRES BRAULIO: 1. No eviden ce for fractu re or sublux ation. Electr onical ly Signed by: Brittaney Cheng at 2023 12:00: 32 PM Page [address] ([facility]) [address] [place], [address], 10/04/2023 13:52:45 Result Notes None recorded. Problems Name Problem SNOMED Code Status Onset Date Resolution Date Notes Provider Name and Address Organization Details Recorded Time Electrocar diogram abnormal 917848787 Active Not Available [facility] 3 12:49:14 Acute bronchitis 37613512 Active 2021 Not Available [facility] 3 12:49:14 Disorder of shoulder 495988556 Active Not Available [facility] 3 12:49:14 Daytime somnolence 705628879146 Active 2021 Not Available [facility] 3 12:49:14 Hearing loss 90505586 Active Not Available [facility] 3 12:49:14 Radiothera py follow-up 878324485 Active Not Available [facility] 3 12:49:14 Gastroesop hageal reflux disease 997988954 Active 2020 Not Available [facility] 3 12:49:14 Osteoarthr itis of knee 195434280 Active Not Available [facility] 3 12:49:14 Benign prostatic hyperplasi a 311098859 Active 2017 Not Available [facility] 3 12:49:14 Knee pain Active Not Available [facility] 3 12:49:15 Prostate specific antigen above reference range 856318558 Active Not Available [facility] 3 12:49:15 Osteoarthr itis 952663086 Active Not Available [facility] 3 12:49:15 Congestive heart failure 43850662 Active 2021 Not Available [facility] 3 12:49:15 Screening for malignant neoplasm of prostate Active 2021 Not Available [facility] 3 12:49:15 Atrial fibrillati on 66438824 Active 2021 Not Available [facility] 3 12:49:15 Cough 46287393 Active 2021 Not Available [facility] 3 12:49:15 Hyperlipid emia 68908955 Active Not Available [facility] 3 12:49:15 Rheumatoid arthritis 41727509 Active 2019 Not Available [facility] 3 12:49:15 Cardiomyop athy 03709135 Active 2020 Not Available [facility] 3 12:49:15 Pain in limb 93166855 Active Not Available [facility] 3 12:49:15 Acute sinusitis 10485550 Active 2022 Nic Zuniga MD [address], [place], [address] , [facility] [employer] [facility] 3 11:01:34 Persistent cough 528041092 Active 2022 Nic Zuniga MD [address], [place], [address] , [facility] [facility] 3 10:58:44 Disorder of prostate 14476556 Active 2022 Nic Zuniga MD [address], [place], [address] , [facility] 3 11:07:02 Chronic cough 81673260 Active 2022 Lora Olsen null, [place] [facility] 3 11:12:04 Pleural effusion 49199832 Active 2022 Elizabeth Quintero CMA null, [place] [facility] 3 11:45:12 Essential hypertensi on 32779907 Active 2022 Nic Zuniga MD [address], [place], [address] , [facility] 3 11:41:40 Cellulitis of external nose 63401412 Active 2022 Nic Zuniga MD [address], [place], [address] , [facility] 3 11:14:53 Muscle spasm of cervical muscle of neck 855185209855 Active 2023 Nic Zuniga MD [address], [place], [address] , [facility] 4 16:38:51 Cervical radiculopa thy 08397558 Active 2023 Nic Zuniga MD [address], [place], [address] , [facility] 4 12:02:41 Postural dizziness 124974215 Active 2023 Nic Zuniga MD [address], [place], [address] , [facility] 4 14:05:56 Vertigo 783554862 Active 2023 Elizabeth Quintero CMA null, [place] [facility] 4 14:34:01 Lightheade dness 700349080 Active 2023 Nic Zuniga MD [address], [place], [address] , [facility] [facility] 4 11:55:15 Ruddy moreno 20451477 Active 2023 MICAH Hendrix null, [facility] 4 12:39:43 Problem Notes None recorded. Procedures Surgical History Date Name Laterality Status Provider Name and Address Organization Details Recorded Time 4 Medicare Wellness CPT Code, subsequent completed Sherley Narvaez RN [facility] 05/10/2023 15:00:43 3 Medicare Wellness CPT Code, subsequent completed Sherley Narvaez RN [facility] 05/07/2022 15:47:53 Imaging Results Imaging Date Name Status LastModified by Organiz ation Details LastModified Time 09/12/2023 lab* completed Information no t available 10/13/2023 14:08:17 09/12/2023 lab* completed [email or web address] Information no t available 10/03/2023 16:12:20 10/04/2023 XR, cervical spine, 2 or 3 view completed [email or web address] [facility] ([facility] [address], [place], [address], 10/04/2023 13:52:45 Procedure Notes None recorded. Medical Equipment None Reported. Allergies Allergen ID Allergen Name Allergen Category Reaction Reaction Severity Criticality Documentation Date Start Date Code Code System Note Provider Name and Address Organization Details Recorded Time 15359 Lopressor medicatio n other Not available Not available 04/28/202290956 4 RxNorm hair loss Not Available [facility] 12:52:48 17995 lisinopri l medicatio n cough Not available Not available 04/28/2022 21686 RxNorm Not Available [facility] 12:52:49 Medications Name Sig Start Date Stop Date Status Note LastModified by Organization Details LastModified Time cyclobenz aprine 10 mg tablet active Not Available Not Available No t Available amoxicill in 500 mg capsule 12/09 completed Not Available Not Available Not Available furosemid e 40 mg tablet Take 1 tablet twice a day by oral route. 01/09 completed Not Available Not Available Not Available nystatin 100,000 unit/mL oral suspensio n SHAKE LIQUID AND TAKE 4 ML BY MOUTH THREE TIMES DAILY 01/09 completed Not Available Not Available Not Available prednison e 10 mg tablet Take 1 tablet every day by oral route. 06/18 completed Not Available Not Available Not Available doxycycli ne hyclate 100 mg capsule TAKE 1 CAPSULE BY MOUTH TWICE DAILY 05/09 completed Not Available Not Available Not Available torsemide 20 mg tablet active Not Available Not Available Not Available sulfasala zine 500 mg tablet 07/08 completed Not Available Not Available Not Available azithromy kelsey 250 mg tablet TAKE 2 TABLETS (500 MG) BY ORAL ROUTE ONCE DAILY FOR 1 DAY THEN 1 TABLET (250 MG) BY ORAL ROUTE ONCE DAILY FOR 4 DAYS 05/09 completed Not Available Not Available Not Available amiodaron e 200 mg tablet TAKE 1 TABLET BY MOUTH DAILY 05/07 completed Not Available Not Available Not Available benzonata te 200 mg capsule Take 1 capsule 3 times a day by oral route. 07/31 completed Not Available Not Available Not Available metoprolo l succinate ER 50 mg tablet,ex tended release 24 hr TAKE 1 TABLET BY MOUTH DAILY GENERIC EQUIVALE NT FOR TOPROL XL 01/09 completed Not Available Not Available Not Available prednison e 20 mg tablet Take 1 tablet every day by oral route. 02/07 completed Not Available Not Available Not Available isosorbid e mononitra te ER 30 mg tablet,ex tended release 24 hr TAKE 1 TABLET BY MOUTH DAILY 10/26 completed Not Available Not Available Not Available prednison e 5 mg tablet TAKE 1 TO 3 TABLETS BY MOUTH EVERY DAY active Not Available Not Available No t Available meclizine 12.5 mg tablet TAKE 1 TABLET BY MOUTH THREE TIMES DAILY 10/26 completed Not Available Not Available Not Available sulfameth oxazole 800 mg-trimet hoprim 160 mg tablet 03/31 completed Not Available Not Available Not Available aspirin 81 mg tablet,de layed release Take 1 tablet every day by oral route. 05/07 completed Not Available Not Available Not Available spironola ctone 25 mg tablet Take 1 tablet every day by oral route. active Not Available Not Available No t Available fenofibra te micronize d 134 mg capsule TAKE 1 CAPSULE DAILY FOR TRIGLYCE RIDES active Not Available Not Available No t Available methotrex ate sodium 2.5 mg tablet TAKE 4 TABLETS BY MOUTH EVERY 7 DAYS active Not Available Not Available No t Available tamsulosi n 0.4 mg capsule TAKE 1 CAPSULE BY MOUTH ONCE DAILY 07/08 completed Not Available Not Available Not Available meclizine 25 mg tablet TAKE 1 TABLET BY MOUTH THREE TIMES DAILY active Not Available Not Available No t Available baclofen 10 mg tablet Take 1 tablet 4 times a day by oral route. 01/31 completed patient states that it caused extreme tirednes s and dizzines s Not Available Not Available Not Available mexiletin e 150 mg capsule active Not Available Not Available Not Available hydrocodo ne 7.5 mg-acetam inophen 325 mg tablet active Not Available Not Available Not Available cephalexi n 500 mg capsule TAKE 1 CAPSULE BY MOUTH EVERY 6 HOURS 05/09 completed Not Available Not Available Not Available pantopraz ole 40 mg tablet,de layed release TAKE 1 TABLET BY MOUTH ONCE DAILY 05/07 completed Not Available Not Available Not Available losartan 25 mg tablet TAKE 1 TABLET BY MOUTH ONCE DAILY 01/09 completed Not Available Not Available Not Available gabapenti n 300 mg capsule TAKE 1 TO 2 CAPSULES BY MOUTH AT NIGHT active Not Available Not Available No t Available diclofena c sodium 75 mg tablet,de layed release Take by oral route. 08/11 completed Not Available Not Available Not Available folic acid 1 mg tablet TAKE 5 TABLETS BY MOUTH DAILY 05/07 completed Not Available Not Available Not Available Slo-Niaci n 500 mg tablet,ex tended release Take 2 tablets every day by oral route. 07/08 completed Not Available Not Available Not Available allopurin ol 300 mg tablet 07/08 completed Not Available Not Available Not Available lisinopri l 5 mg tablet 07/08 completed Not Available Not Available Not Available furosemid e 20 mg tablet TAKE 1 TABLET BY MOUTH EVERY DAY 10/26 completed Not Available Not Available Not Available gabapenti n 100 mg capsule active Not Available Not Available Not Available metoprolo l succinate ER 25 mg tablet,ex tended release 24 hr active Not Available Not Available Not Available cefuroxim e axetil 500 mg tablet TAKE 1 TABLET BY MOUTH TWICE DAILY 05/09 completed Not Available Not Available Not Available levofloxa kelsey 500 mg tablet 07/08 completed Not Available Not Available Not Available methylpre dnisolone 4 mg tablets in a dose pack Take 1 dose pk by oral route as directed . 10/26 completed Not Available Not Available Not Available albuterol sulfate HFA 90 mcg/actua tion aerosol inhaler INHALE 2 PUFFS BY MOUTH FOUR TIMES DAILY NEEDED FOR SHORTNES S OF BREATH OR WHEEZING active Not Available Not Available No t Available cefdinir 300 mg capsule Take 1 capsule every 12 hours by oral route. active Not Available Not Available No t Available clotrimaz ole 1 % topical cream 05/07 completed Not Available Not Available Not Available ipratropi um bromide 21 mcg (0.03 %) nasal spray USE 2 SPRAYS IN EACH NOSTRIL THREE TIMES DAILY 01/09 completed Not Available Not Available Not Available finasteri de 5 mg tablet Take 1 tablet every day by oral route. 08/09 completed Not Available Not Available Not Available Os-Mejia 500 + D3 500 mg-5 mcg (200 unit) tablet Take 1 tablet every day by oral route. 05/23 completed Not Available Not Available Not Available valsartan 40 mg tablet active Not Available Not Available Not Available cyclobenz aprine 5 mg tablet TAKE 1 TABLET BY MOUTH THREE TIMES DAILY 01/09 completed Not Available Not Available Not Available Multivita min 50 Plus tablet Take 1 tablet every day by oral route. 2019 active Not Available Not Available Not Avai lable metoprolo l tartrate 25 mg tablet 12/09 completed Not Available Not Available Not Available TriLyte With Flavor Packets 420 gram oral solution active Not Available Not Available Not Available eszopiclo ne 1 mg tablet TAKE 1 TABLET WITH YOU TO THE SLEEP LAB ON THE NIGHT OF THE STUDY 01/09 completed Not Available Not Available Not Available fenofibra te 160 mg tablet TAKE 1 TABLET EVERY DAY 07/08 completed Not Available Not Available Not Available Slo-Niaci n 1000 (2 tabs) once daily 05/23 completed Not Available Not Available Not Available Os-Mejia 500 + D3 daily 12/11 completed Not Available Not Available Not Available Wesley 3 1200 twice a day 2012 active Not Available Not Available Not Avai lable multivita min 05/23 completed Not Available Not Available Not Available hydrochlo rothiazid e 12.5 mg tablet Take 1 tablet every day by oral route. 2012 active Not Available Not Available Not Avai lable Fish Oil 100 mg-160 mg-1,000 mg capsule Take 1 capsule every day by oral route. 05/23 completed Not Available Not Available Not Available Xarelto 15 mg tablet Take 1 tablet every day by oral route. active Not Available Not Available No t Available Xarelto 20 mg tablet TAKE 1 TABLET BY MOUTH ONCE DAILY 05/07 completed Not Available Not Available Not Available Os-Mejia 500 + D3 500 mg-15 mcg (600 unit) tablet Take 1 tablet every day by oral route. 2021 active Not Available Not Available Not Avai lable methotrex ate 2.5 mg tablet take four tablets by mouth weekly 05/09 completed Not Available Not Available Not Available omega 3 183.3 mg-dha 75 mg-epa 91.6 mg-fish oil 306 mg capsule Take 1 capsule every day by oral route. 07/08 completed Not Available Not Available Not Available Jardiance 10 mg tablet Take 1 tablet every day by oral route. active Not Available Not Available No t Available Procto-Me d HC 2.5 % topical cream perineal applicato r APPLY A THIN LAYER TO THE AFFECTED AREA(S) TWO TO FOUR TIMES DAILY 05/09 completed Not Available Not Available Not Available Fish Oil 1,000 mg (120 mg-180 mg) capsule Take 1 capsule every day by oral route. 07/08 completed Not Available Not Available Not Available balsam trent-cast or oil topical ointment APPLY 1 TOPICALL Y THREE TIMES DAILY FOR 14 DAYS 07/08 completed Not Available Not Available Not Available Vitals Date Recorded Body height Body mass index (BMI) Body weight Heart rate Body temperature Oxygen saturation Oxygen saturation in Arterial blood by Pulse oximetry Systolic blood pressure Diastolic blood pressure Provider Name and Address Organization Details Last Updated DateTime 4 177.8 cm 24.4 kg/m2 20494.7 g 73 /min 97 [degF] 96 % 96 % 122 mm[Hg] 64 mm[Hg] Ashley Lyman FL [email or web address] [facility] [email or web address] [facility] 4 14:49:28 Date Recorded Pain severity - 0-10 verbal numeric rating [Score] - Reported Provider Name and Address Organization Details Last Updated DateTime 05/10/2023 5 Sherley Narvaez RN [facility] [email or web address] [facility] 05/10/2023 15:01:00 Date Recorded Body height Body mass index (BMI) Body weight Heart rate Body temperature Oxygen saturation Oxygen saturation in Arterial blood by Pulse oximetry Systolic blood pressure Diastolic blood pressure Provider Name and Address Organization Details Last Updated DateTime 4 177.8 cm 25.4 kg/m2 79822.8 5 g 73 /min 97 [degF] 96 % 96 % 112 mm[Hg] 60 mm[Hg] [facility] [place] [email or web address] [facility] [email or web address] [facility] 4 14:59:19 Date Recorded Body height Body mass index (BMI) Body weight Heart rate Body temperature Oxygen saturation Oxygen saturation in Arterial blood by Pulse oximetry Systolic blood pressure Diastolic blood pressure Provider Name and Address Organization Details Last Updated DateTime 4 177.8 cm 25.4 kg/m2 44264.8 5 g 66 /min 97.8 [degF] 97 % 97 % 110 mm[Hg] 62 mm[Hg] Keisha Neumann Natalie [facility] [employer] [facility] 4 11:54:12 Date Recorded Body height Body mass index (BMI) Body weight Heart rate Body temperature Oxygen saturation Oxygen saturation in Arterial blood by Pulse oximetry Systolic blood pressure Diastolic blood pressure Provider Name and Address Organization Details Last Updated DateTime 4 177.8 cm 24.8 kg/m2 22243.4 8 g 77 /min 97.8 [degF] 98 % 98 % 102 mm[Hg] 62 mm[Hg] Keisha Neumann Natalie [facility] [employer] [facility] 4 11:31:57 Date Recorded Body height Body mass index (BMI) Body weight Heart rate Body temperature Oxygen saturation Oxygen saturation in Arterial blood by Pulse oximetry Systolic blood pressure Diastolic blood pressure Provider Name and Address Organization Details Last Updated DateTime 4 177.8 cm 24.4 kg/m2 01717.7 g 62 /min 97 [degF] 98 % 98 % 100 mm[Hg] 60 mm[Hg] MICAH Hendrix [place] - [facility] 4 16:41:24 Social History Question Answer Notes LastModified by Organization Details LastModified Time Tobacco Smoking Status Never Smoker Not Available [employer] 04/28/2022 12:47:32 Do You Have An Advance Directive? Yes MIGRATION.030 [id number] Information not available 04/28/2022 What Is Your Level Of Alcohol Consumption? Occasional MIGRATION.030 025419 Information not available 04/28/2022 Are You Blind Or Do You Have Difficulty Seeing? No Blind In Right Eye [email or web address] Information not available 05/10/2023 In The 14 Days Before Symptom Onset, Have You Had Close Contact With A Laboratory-confi rmed COVID-19 While That Case Was Ill? No MIGRATION.030 [id number] Information not available 04/28/2022 In The 14 Days Before Symptom Onset, Have You Had Close Contact With A Person Who Is Under Investigation For COVID-19 While That Person Was Ill? No MIGRATION.030 [id number] Information not available 04/28/2022 Are You Deaf Or Do You Have Serious Difficulty Hearing? Yes [email or web address] Information not available 05/07/2022 What Type Of Diet Are You Following? REGULAR MIGRATION.0301 [id number] Information not available 04/28/2022 Have There Been Any Changes To Your Family Or Social Situation? Yes Recently Lost His Son [email or web address] Information not available 05/10/2023 What Is The Fluoride Status Of Your Home? Unknown [email or web address] Information not available 05/07/2022 Are There Any Guns Present In Your Home? Yes MIGRATION.0301 [id number] Information not available 04/28/2022 Do You Use Insect Repellent Routinely? No MIGRATION.0301 [id number] Information not available 04/28/2022 Where Do You Live? [place]House MIGRATION.0301 [id number] Information not available 04/28/2022 Guns Present In The Home? Yes [email or web address] Information not available 05/07/2022 Are You Able To Care For Yourself? Yes [email or web address] Information not available 05/07/2022 Are You Blind Or Do Yo Have Difficulty Seeing? No [email or web address] Information not available 05/07/2022 Are You Deaf Or Do You Have Serious Difficulty Hearing? Yes [email or web address] Information not available 05/07/2022 Live Alone Of With Others? With Others [email or web address] Information not available 05/07/2022 Do You Have A Medical Power Of Engine Wiper? Yes MIGRATION.0301 [id number] Information not available 04/28/2022 What Was The Date Of Your Most Recent Tobacco Screening? 05/10/2023 [email or web address] Information not available 05/10/2023 Do You Have Any Pets? No MIGRATION.0301 [id number] Information not available 04/28/2022 What Is Your Relationship Status? MIGRATION.0301 962503 Information not available 04/28/2022 Do You Use Your Seat Belt Or Car Seat Routinely? Yes MIGRATION.0301 436405 Information not available 04/28/2022 Do You Have Smoke And Carbon Monoxide Detectors In Your Home? Yes MIGRATION.0301 [id number] Information not available 04/28/2022 Are You Passively Exposed To Smoke? No MIGRATION.0301 936159 Information not available 04/28/2022 Are There Any Smokers In Your House? No MIGRATION.0301 [id number] Information not available 04/28/2022 Do You Use Any Illicit Or Recreational Drugs? No MIGRATION.0301 119428 Information not available 04/28/2022 Do You Use Sunscreen Routinely? No MIGRATION.0301 [id number] Information not available 04/28/2022 Have You Recently Traveled Abroad? No MIGRATION.0301 377938 Information not available 04/28/2022 Do You Have Any Dietary Restrictions? Yes MIGRATION.0301 494188 Information not available 04/28/2022 Do You Or Have You Ever Used Any Other Forms Of Tobacco Or Nicotine? No MIGRATION.0301 035018 Information not available 04/28/2022 Sex: Unknown Functional Status Question Answer Note LastModified by Organizat ion Details LastModified Time Do you have difficulty walking or climbing stairs? No MIGRATION.59781 07851 Information not available 04/28/2022 Do you have transportation difficulties? No MIGRATION.70207 88928 Information not available 04/28/2022 Are you able to walk? YESWOREST uses cane sometimes [email or web address] Information not available 05/10/2023 Do you have difficulty doing errands alone? No MIGRATION.71512 60765 Information not available 04/28/2022 Are you able to care for yourself? Yes MIGRATION.91323 30300 Information not available 04/28/2022 Do you have difficulty dressing or bathing? No MIGRATION.19352 03051 Information not available 04/28/2022 What is your exercise level? Occasional is going to Cardiac Rehab MIGRATION.95473 94941 Information not available 04/28/2022 Mental Status Question Answer Note LastModified by Organizat ion Details LastModified Time Do you have difficulty concentrating, remembering or making decisions? No MIGRATION.[id number] 6 Information not available 04/28/2022 Family History Nothing Reported Notes:Mother 66 from le ukemia Father 71 from pancreatic cancer Two brothers one from leukemia One sister from RHD two living and in good health Medical History Condition Response NERVE DISEASE N BLINDNESS N RHEUMATIC FEVER N KIDNEY STONES N BLADDER PROBLEMS N MRSA N OTHER # 1 N POLIO N LUNG DISEASE/DISORDER N HISTORY OF DRUG ABUSE N RADIATION / CHEMOTHERAPY N COPD N Other # 2 N BLOOD DISEASES N EAR OR HEARING PROBLEMS N MUMPS N SHINGLES N BOWEL PROBLEMS N DEPRESSION (INCLUDING POST ) N STROKE/TIA N ULCERS N BENIGN PROSTATIC HYPERPLASIA N MEASLES N HYPOTENSION N MYOCARDIAL INFARCTION N OBESITY N GERD/NAUSEA N ANEURYSM N URINARY/BLADDER/KIDNEY PROBLEMS N CORONARY ARTERY DISEASE (CAD) N ADDICTION CONCERNS N ENDOMETRIOSIS N Impotence N USE OF BLOOD THINNERS N SKIN PROBLEMS N GASTROINTESTINAL DISORDER N PERIPHERAL VASCULAR DISEASE N MUSCLE,JOINT OR BONE PROBLEMS N GASTROINTESTINAL BLEEDING N BLOOD CLOTS N ASTHMA N CATARACTS N ERECTILE DYSFUNCTION N VARICOSITIES N GI PROBLEMS N Low Testosterone N INFERTILITY N AIDS/HIV N CHEMOTHERAPY / RADIATION N LIVER DISEASE N MALE HYPOGONADISM N HYPERTENSION Y Deficiency N TOURETTE'S N ANXIETY DISORDER N BLOOD TRANSFUSION N ANEMIA/BLOOD DISORDER N CHRONIC EAR INFECTIONS N BRONCHITIS N TUBERCULOSIS N GLAUCOMA N FOOT PROBLEM N DIVERTICULITIS N CHICKENPOX N SLEEP APNEA N INFECTIOUS DISEASE N HEART ARRHYTHMIA N PROSTATE N INSOMNIA N HIGH CHOLESTEROL / HYPERLIPIDEMIA N HYPERTHYROIDISM N EYE PROBLEMS N EDEMA N CHRONIC PAIN SYNDROME N HYPOTHYROIDISM N CAROTID BLOCKAGE N CONSTIPATION N BACK / NECK PROBLEMS N HAVE YOU BEEN HOSPITALIZED OR SEEN IN [facility] IN THE PAST YEAR ? N ATHEROSCLEROSIS N BREAST PROBLEMS N DIALYSIS N ECZEMA N OSTEOPOROSIS N ARTHRITIS Y NO SIGNIFICANT PAST MEDICAL HISTORY N APPENDICITIS N DIABETES, TYPE N BAD TEETH N ENT N HEARTBURN / REFLUX N AUTISM SPECTRUM DISORDER (ASD) N HEPATITIS / LIVER DISEASE N GOUT N SLEEP DISORDER N ALZHEIMER'S DISEASE N Brain Problems N HERPES N DEMENTIA N HEADACHES/MIGRAINES N SEIZURES/EPILEPSY N VASCULAR DISEASE N PACEMAKER N Blood Disorder N DIZZINESS N HEART DISEASE/HEART PROBLEMS N KIDNEY DISEASE N MULTIPLE SCLEROSIS N CARDIAC ARRHYTHMIA N CANCER: SPECIFY N ATRIAL FIBRILLATION N Gall Stones N PULMONARY EMBOLISM N AUTOIMMUNE DISEASE N Immunizations Vaccine Type Date Status Note Provider Nam e and Address Organization Details Recorded Time influenza, unspecified formulation 3 completed Elizabeth Quintero CMA null, [place] - [facility] [place] [employer] [facility] 12/02/2022 10:27:19 Influenza, high-dose, trivalent, PF 3 completed Not Available [facility] 04/28/2022 12:52:41 SARS-COV-2 (COVID-19) vaccine, UNSPECIFIED 1 completed Not Available [facility] 04/28/2022 12:52:41 Influenza, high-dose, trivalent, PF 7 completed Not Available [facility] 04/28/2022 12:52:41 zoster live 3 completed Not Available [facility] 04/28/2022 12:52:41 Influenza, high-dose, quadrivalent, PF 2 completed Not Available [facility] 04/28/2022 12:52:41 Influenza, split virus, quadrivalent, preservative 1 completed Not Available [facility] 04/28/2022 12:52:41 zoster, unspecified formulation 1 completed Not Available [facility] 04/28/2022 12:52:42 SARS-COV-2 (COVID-19) vaccine, UNSPECIFIED 1 completed Not Available [facility] 04/28/2022 12:52:42 SARS-COV-2 (COVID-19) vaccine, UNSPECIFIED 1 completed Not Available [facility] 04/28/2022 12:52:42 Pneumococcal conjugate PCV 13 5 completed Not Available [facility] 04/28/2022 12:52:42 pneumococcal polysaccharide PPV23 8 completed Not Available [facility] 04/28/2022 12:52:42 Influenza, high-dose, trivalent, PF 4 completed Not Available [facility] 04/28/2022 12:52:42 Past Encounters Encounter ID Performer Location Encounter Start Date Encounter Closed Date Diagnosis/Indication Diagnosis SNOMED-CT Code Diagnosis ICD10 Code Diagnosis Note [id number] [facility] [place] [address] [place] [address] 07/04/2020 00:00:00 07/04/2020 12:35:46 [id number] [facility] [place] [address] [place] [address] 07/15/2020 00:00:00 07/15/2020 15:36:29 [id number] [facility] [place] [facility] [place] [address] 08/26/2020 00:00:00 08/26/2020 12:14:48 [id number] [facility] [place] [address] [place] [address] 12/09/2020 00:00:00 12/09/2020 12:59:59 [id number] [facility] [place] [address] [place] [address] 03/31/2021 00:00:00 03/31/2021 12:03:08 [id number] [facility] [place] [address] [place] [address] 07/31/2021 00:00:00 07/31/2021 11:47:24 [id number] [facility] [place] [address] [place] [address] 12/11/2021 00:00:00 12/11/2021 12:16:24 [id number] Nic Zuniga MD [facility] Internal [facility] [place] [address] [facility] [place] [address] 05/07/2022 15:09:07 05/07/2022 16:05:49 Adult health examination 319273870 Z00.00 Screening for disorder 911199434 Z13.9 Benign ess ential hypertension 8017326 I10 Atrial fibrillation 4943 6004 I48.91 Hyperlipidemia 31234402 E78.5 Gastroesop hageal reflux disease 998145136 K21.9 Cardiomyopathy 93100554 I42.9 [id number] Nic Zuniga MD 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 [place] [address] [place] [address] [place] [address] 01/18/2023 11:13:36 01/18/2023 11:51:46 Cardiomyopathy 39229217 I42.9 Essential hypertension 63111195 I10 Atrial fibrillation 4943 6004 I48.91 Hyperlipidemia 61058920 E78.5 [id number] Nic Zuniga MD [facility] [place] [address] [place] [address] [place] [address] 05/10/2023 14:32:02 05/10/2023 15:22:57 Adult health examination 744911326 Z00.00 Screening for disorder 171349678 Z13.9 Cardiomyopathy 24612920 I42.9 Atrial fibrillation 4943 6004 I48.91 Essential hypertension 98851322 I10 Hyperlipidemia 43361063 E78.5 [id number] Nic Zuniga MD [facility] Internal [facility] [place] [address] [facility] [place] [address] 09/13/2023 14:38:39 09/13/2023 15:28:53 Cardiomyopathy 36071245 I42.9 Atrial fibrillation 4943 6004 I48.91 Essential hypertension 83665852 I10 Hyperlipidemia 89844257 E78.5 Rheumatoid arthritis 698 31795 M06.9 [id number] Nic Zuniga MD [facility] Internal [facility] [place] [address] [place] [address] [place] [address] 10/04/2023 11:42:38 10/04/2023 12:07:29 Cervical radiculopathy 27250655 M54.12 [id number] Nic Zuniga MD [facility] [place] [address] [place] [address] [place] [address] 10/27/2023 11:22:48 10/27/2023 12:02:15 Lightheadedness 207261473 R42 [id number] Nic Zuniga MD [facility] [place] [address] [place] [address] [place] [address] 01/10/2024 16:12:15 01/10/2024 17:08:13 Cardiomyopathy 95781960 I42.9 Essential hypertension 38546920 I10 Hyperlipidemia 56062879 E78.5 Health Concerns Section Related Observation LastModified by Organization Detai ls LastModified Time None Recorded Concern Status LastModified by Organization Details LastModified Time None Recorded Advance Directives Directive Y: Payers Encounter Date Sequence Insurance Name Policy Number Policy Ojeda Covered Member ID Ojeda Member ID Guarantor Name 05/10/2023 1 [place] Bruno Marsh Vianey [id number] Bruno Marsh Vianey 05/10/2023 2 [email or web address] (MEDICARE SUPPLEMENT) PLAN G Bruno Marsh Vianey [id number] Bruno Marsh Vianey 09/13/2023 1 [place] Bruno Marsh Vianey [id number] Bruno D Achenbach 09/13/2023 2 [employer] (MEDICARE SUPPLEMENT) PLAN G Bruno Marsh Achenbach [id number] Bruno Marsh Achenbach 10/04/2023 1 [place] Bruno Marsh Achenbach [id number] Bruno Marsh Achenbach 10/04/2023 2 [employer] (MEDICARE SUPPLEMENT) PLAN G Bruno Marsh Achenbach [id number] Bruno Marsh Achenbach 10/27/2023 1 [place] Bruno Marsh Achenbach [id number] Bruno Marsh Achenbach 10/27/2023 2 [employer] (MEDICARE SUPPLEMENT) PLAN G Bruno Marsh Achenbach [id number] Bruno Marsh Achenbach 01/10/2024 1 [place] Bruno Marsh Achenbach [id number] Bruno Marsh Achenbach 01/10/2024 2 [employer] (MEDICARE SUPPLEMENT) PLAN G Bruno Marsh Achenbach [id number] Bruno Marsh Achenbach Notes Date Note Type Note Provider Name and Address Organization Details Recorded Time text/html Patient Name: Bruno WintersDate Of Service: Tuesday ( 05.10.2023 ): 1940 Age: 83 There has been approximately a 8 lb weight gain since 01/18/2023. This represents approximately a 4.9% change in weight. Weight change attributable to lifestyle changes. Vital Signs:Blood Pressure: Sitting Rt. Arm 122/64Pulse: Sitting 73 /min and RegularRespiratory Rate: 12Height 70 in or 1.8 mWeight 170 lb or 77.1 kgBMI 24.4Temperature: 97 F or 36.1 CPulse Oximetry: 96 % at rest on no oxygen Chief Complaint: Addressed in HPI Problems or conditions discussed in the HPI were the only ones reviewed during the encounter.Only social and family history addressed in the HPI were reviewed during this encounter. A significant, separate E/M service was performed to evaluate the current and new problems. Attendant(s): WifeConstitutional and Systemic Symptoms:none Medication Reconciliation: from medication list. AnnotationsCarotid ultrasound from 02/26/2022 demonstrates less than 50% stenosis on both internal carotid arteries. Chest x-ray showed a cardiac silhouette slightly enlarged. Pacemaker is noted. No pulmonary edema or congestion. Right basilar consolidation and pleural effusion. This is unchanged from previous study from 12/11/2021. 10/21/2022: CT scan of the thorax demonstrates a moderate to large right-sided pleural effusion with no focal consolidation. Recommend pulmonary consult. History of Present Illness Reviewed the findings of the preventative health visit. Addressed all areas with the patient, patient's family or caregivers. Preventative examinations and testing immunizations - vaccinations, colonic neoplasm screening and PSA all reviewed and ordered where patient was amenable to the recommendations. Cognitive function was normal. Depression addressed and where necessary medications were adjusted or instituted. End of life and living will briefly discussed with patient and where these can be filled out and legally executed. Other blood and imaging studies were ordered if considered necessary. Other recommendations may be found in the encounter note. #1. Cardiomyopathy: History of congestive cardiomyopathy. No interval complaints of any orthopnea, PND or chest pain. Currently functioning at a III level. ADL: Bathing, Dressing, Eating, Functional Mobility, Personal Hygiene and Toilet Hygiene #2. Atrial Fibrillation: Type: Persistent with recurrent episodes lasting longer than 7 days. Further classification: Non-valvular. Associated history of essential hypertension. No attending hx of any shortness of breath, palpitations, syncopal or neurological symptoms. Current medications: Losartan Potassium, Metoprolol Succinate Er and Xarelto. Rate control: controlled ventricular response [id number] Criteria: hypertension, Age > 75 and and considered moderate risk for embolic phenomenon. Anticoagulation: Eliquis #3. Essential Hypertension: Stage: Stage I Interval Neurological Complaints no headaches, dizziness, weakness, visual changes, ataxia, aphasia and apraxia. No shortness of breath, orthopnea or cardiovascular symptoms. No other symptoms related to end organ damage. Pressure has been under excellent control. Currently normal. No other end organ symptoms or findings. Therapy reviewed regarding management of hypertension and includes salt restriction and Losartan Potassium. #4. Type II Hypercholesterolaemia: Currently not taking medication. No interval complaints of any muscle pain or arthralgia. No significant liver changes with medications. Last lipid panel: fair control. Therapy reviewed regarding treatment of cholesterol management and include diet. Active Medication ListAscorbic Acid 500 MG One DailyXarelto 15 MG TABLET, FILM COATED QdMetoprolol Succinate Er 50 MG QdClotrimazole And Betamethasone 0.05%-1% (CREAM - TOPICAL) Apply BidZinc 50 MG QdLosartan Potassium 25 MG TABLET Take One Tablet DailySpironolactone 25 MG (TABLET - ORAL) Once DailyFolic Acid 1 MG (TABLET - ORAL) One DailyMethotrexate 2.5 MG (TABLET - ORAL) Four Tablets Once WeeklyLasix 20 MG TABLET Once Daily Along With A 40mg TabletLasix 40 MG TABLET Once Daily With A 40 Mg OdImdur 30 MG Once DailyMultivitamin DailyVitamin B6 2 Once DailyJardiance 10 MG TABLET, FILM COATED Once Daily Adverse Drug Reactions ReviewedLopressor Hair LossLisinopril Cough Vaccination and Toofoeoynhri5118-81 Wdxlhdkcw8159-79 Covid Booster Fhhwrzy0073-44 Covid Mjzlcew4843-51 Prevnar 13 Lk2700-69 Pneumovax Surgical Kavrqbn7034-04 AV Node Gicpzybx8882-91 APJB8416-95 Right GBW6856-27 Left 3Rd Finger Hook-nail Ekvjaoovf1395-39 Lt. Inguinal Mdvvtb0183-75 Multiple Eye Surgeries Preventative Zhczccv6810/21/2022 ALBUMIN 3.7 G/DL N010/21/2022 CT QHZLHC1310/21/2022 PSA 4.98 NG/ML H1 HAIC 5.901/07/2021 COLONOSCOPY ( 5 YEARS ) 7010/03/2007 UPPER PJVOSMGLU45/26/2008 DEXA SCAN Social HistoryDoes not smokeDrinks sociallyRetired printing press machinist Family HistoryMother 66 from leukemiaFather 71 from pancreatic cancerTwo brothers one from leukemiaOne sister from RHD two living and in good health Nic Zuniga MD [address] [facility], [facility] [address], [place], [address], [facility] [employer] [facility] 05/10/2023 15:16:37 4 text/html Patient Name: Bruno Marsh VianeyDate Of Service: Tuesday ( 09.13.2023 ): 1940 Age: 83 There has been approximately a 7 lb weight gain since 05/10/2023. This represents approximately a 4.1% change in weight. Weight change attributable to lifestyle changes. Vital Signs:Blood Pressure: Sitting Rt. Arm 112/60Pulse: Sitting 73 /min and RegularRespiratory Rate: 14Height 70 in or 1.8 mWeight 177 lb or 80.3 kgBMI 25.4Temperature: 97 F or 36.1 CPulse Oximetry: 96 % at rest on no oxygen Chief Complaint: Addressed in HPI Problems or conditions discussed in the HPI were the only ones reviewed during the encounter.Only social and family history addressed in the HPI were reviewed during this encounter. Attendant(s): WifeConstitutional and Systemic Symptoms:none Medication Reconciliation: from medication list. AnnotationsCarotid ultrasound from 02/26/2022 demonstrates less than 50% stenosis on both internal carotid arteries. Chest x-ray showed a cardiac silhouette slightly enlarged. Pacemaker is noted. No pulmonary edema or congestion. Right basilar consolidation and pleural effusion. This is unchanged from previous study from 12/11/2021. 10/21/2022: CT scan of the thorax demonstrates a moderate to large right-sided pleural effusion with no focal consolidation. Recommend pulmonary consult. History of Present Illness #1. Cardiomyopathy: History of congestive cardiomyopathy. No interval complaints of any orthopnea, PND or chest pain. Currently functioning at a II level. ADL: Bathing, Dressing, Eating, Functional Mobility, Personal Hygiene and Toilet Hygiene #2. Atrial Fibrillation: Type: First detected. Further classification: Non-valvular. Associated history of essential hypertension. No attending hx of any shortness of breath, palpitations, syncopal or neurological symptoms. Current medications: no specific medication. Rate control: controlled ventricular response [id number] Criteria: hypertension, Age > 75 and and considered moderate risk for embolic phenomenon. Anticoagulation: Xarelto #3. Essential Hypertension: Stage: Stage I Interval Neurological Complaints no headaches, dizziness, weakness, visual changes, ataxia and aphasia. No shortness of breath, orthopnea or cardiovascular symptoms. No other symptoms related to end organ damage. Pressure has been under fair control. Currently normal. No other end organ symptoms or findings. Therapy reviewed regarding management of hypertension and includes salt restriction and Losartan Potassium, Metoprolol Succinate Er and Spironolactone. #4. Type II Hypercholesterolaemia: Currently not taking medication. No interval complaints of any muscle pain or arthralgia. No significant liver changes with medications. Last lipid panel: excellent control. Therapy reviewed regarding treatment of cholesterol management and include diet and Medication. Active Medication ListAscorbic Acid 500 MG One DailyXarelto 15 MG TABLET, FILM COATED QdMetoprolol Succinate Er 50 MG QdClotrimazole And Betamethasone 0.05%-1% (CREAM - TOPICAL) Apply BidZinc 50 MG QdLosartan Potassium 25 MG TABLET Take One Tablet DailySpironolactone 25 MG (TABLET - ORAL) Once DailyFolic Acid 1 MG (TABLET - ORAL) One DailyMethotrexate 2.5 MG (TABLET - ORAL) Four Tablets Once WeeklyLasix 20 MG TABLET Once Daily Along With A 40mg TabletLasix 40 MG TABLET Once Daily With A 40 Mg OdImdur 30 MG Once DailyMultivitamin DailyVitamin B6 2 Once DailyJardiance 10 MG TABLET, FILM COATED Once Daily Adverse Drug Reactions ReviewedLopressor Hair LossLisinopril Cough Vaccination and [id number] Zubqbzort7571-17 Covid Booster Zjxnoga8041-47 Covid Gcupkad6800-29 Prevnar 13 Rv0788-42 Pneumovax Surgical Jxondhq5266-00 AV Node Wywuftnf3392-70 TKGY4788-81 Right WRI1321-88 Left 3Rd Finger Hook-nail Eryouqags1300-48 Lt. Inguinal Uchyvv3818-42 Multiple Eye Surgeries Preventative Dwffmso7507/22/2023 AFHCYNVCCEWUE55/15/2024 ALBUMIN 3.8 G/DL10/21/2022 CT BFGWSG6110/21/2022 PSA 4.98 NG/ML H1 HAIC 5.9003/05/2021 COLONOSCOPY ( 5 YEARS ) 7010/03/2007 UPPER QICLYSXEW36/26/2008 DEXA SCAN Social HistoryDoes not smokeDrinks sociallyRetired printing press machinist Family HistoryMother 66 from leukemiaFather 71 from pancreatic cancerTwo brothers one from leukemiaOne sister from RHD two living and in good health TEST RESULT RANGE UNITSLIPID PANEL Date: 4CHOLESTEROL, TOTAL 113 100-199 MG/DLTRIGLYCERIDES 89 0-149 MG/DLHDL CHOLESTEROL 49 >39 MG/DLLDL CHOL CALC ([facility]) 47 0-99 MG/DLCOMP. METABOLIC PANEL (14) Date: 05/13/2023SODIUM 143 134-144 MMOL/LEGFR 53 >59 ML/MIN/1.73CREATININE 1.33 0.76-1.27 MG/DLBUN 28 8-27 MG/DLGLUCOSE 90 70-99 MG/DLALKALINE PHOSPHATASE 66 44-121 IU/LAST (SGOT) 21 0-40 IU/LALT (SGPT) 11 0-44 IU/L Nic Zuniga MD [address] [facility], [facility] [address], [place], [address], [place] 09/13/2023 15:25:49 4 text/html Patient Name: Bruno WintersMacte Of Service: Tuesday ( 10.04.2023 ): 1940 Age: 83 Vital Signs:Blood Pressure: Sitting Rt. Arm 110/62Pulse: Sitting 66 /min and RegularRespiratory Rate: 14Height 70 in or 1.8 mWeight 177 lb or 80.3 kgBMI 25.4Temperature: 97.8 F or 36.6 CPulse Oximetry: 97 % at rest on no oxygen Chief Complaint: Addressed in HPI Problems or conditions discussed in the HPI were the only ones reviewed during the encounter.Only social and family history addressed in the HPI were reviewed during this encounter. Attendant(s): NoneConstitutional and Systemic Symptoms:none Medication Reconciliation: from medication list. History of Present Illness #1. Complaining of pain and discomfort in the left posterior cervical region. No radiation down into the shoulders or arms. Denies any numbness, tingling or any other associated signs of weakness. Has had some difficulty ambulating which is not a new problem. Does not appear to be related to the neck discomfort at this time. Denies any history of any increased falls. There is no history of any other associated neurological complaints. Did get a dose of Medrol Dosepak which showed considerable improvement. Will repeat this and obtain radiographic studies if negative will need to consider doing a CT of the cervical spine because his history of defibrillator.: Active Medication ListAscorbic Acid 500 MG One DailyXarelto 15 MG TABLET, FILM COATED QdMetoprolol Succinate Er 50 MG QdClotrimazole And Betamethasone 0.05%-1% (CREAM - TOPICAL) Apply BidZinc 50 MG QdLosartan Potassium 25 MG TABLET Take One Tablet DailySpironolactone 25 MG (TABLET - ORAL) Once DailyFolic Acid 1 MG (TABLET - ORAL) One DailyMethotrexate 2.5 MG (TABLET - ORAL) Four Tablets Once WeeklyLasix 20 MG TABLET Once Daily Along With A 40mg TabletLasix 40 MG TABLET Once Daily With A 40 Mg OdImdur 30 MG Once DailyMultivitamin DailyVitamin B6 2 Once DailyJardiance 10 MG TABLET, FILM COATED Once Daily Nic Zuniga MD [address] [facility], [facility] [address], [place], [address], [facility] 10/04/2023 12:03:26 4 text/html Patient Name: Bruno Marsh Joséte Of Service: September ( 10.27.2023 ): 1940 Age: 83 There has been approximately a 4 lb weight loss since 10/04/2023. This represents approximately a 2.3% change in weight. Weight change attributable to lifestyle changes. Vital Signs:Blood Pressure: Sitting Rt. Arm 102/62Blood Pressure: Sitting Rt. Arm 98/60Pulse: Sitting 77 /min and RegularPulse: Sitting 70 /minRespiratory Rate: 14Height 70 in or 1.8 mWeight 173 lb or 78.5 kgBMI 24.8Temperature: 97.8 F or 36.6 CThere is a 4 mm/Hg drop in systolic pressure between the two blood pressure measurements.The pulse increases by 7Pulse Oximetry: 98 % at rest on no oxygen Chief Complaint: Addressed in HPI Problems or conditions discussed in the HPI were the only ones reviewed during the encounter.Only social and family history addressed in the HPI were reviewed during this encounter. Attendant(s): None and WifeConstitutional and Systemic Symptoms:none Medication Reconciliation: from medication list. AnnotationsCarotid ultrasound from 02/26/2022 demonstrates less than 50% stenosis on both internal carotid arteries. Chest x-ray showed a cardiac silhouette slightly enlarged. Pacemaker is noted. No pulmonary edema or congestion. Right basilar consolidation and pleural effusion. This is unchanged from previous study from 12/11/2021. 10/21/2022: CT scan of the thorax demonstrates a moderate to large right-sided pleural effusion with no focal consolidation. Recommend pulmonary consult. History of Present Illness #1. Postural changes in lightheadedness but not actually true vertigo more of a feeling of being off balance. Does have a Romberg sign. There is no other nystagmus noted. No other vertiginous symptoms elicited except when changing positions. Had a recent fall in which he was rising from a toilet seat and fell. No focal neurological findings are noted. Likely a combination of factors including postural changes in blood pressure perfusion pressure to the brain as well as possibly some neuropathic changes in the lower extremities.: Active Medication ListAscorbic Acid 500 MG One DailyXarelto 15 MG TABLET, FILM COATED QdMetoprolol Succinate Er 50 MG QdClotrimazole And Betamethasone 0.05%-1% (CREAM - TOPICAL) Apply BidZinc 50 MG QdLosartan Potassium 25 MG TABLET Take One Tablet DailyFolic Acid 1 MG (TABLET - ORAL) One DailyMethotrexate 2.5 MG (TABLET - ORAL) Four Tablets Once WeeklyLasix 40 MG TABLET One DailyMultivitamin DailyVitamin B6 2 Once DailyJardiance 10 MG TABLET, FILM COATED Once DailyMeclizine 25 MG TABLET One Tablet Tid Nic Zuniga MD [address] [facility] [address], [place], [address], [place] [facility] 10/27/2023 12:00:19 4 text/html Patient Name: Bruno Marsh José Of Service: Tuesday ( 01.10.2024 ): 1940 Age: 83 There has been approximately a 3 lb weight loss since 10/27/2023. This represents approximately a 1.7% change in weight. Weight change attributable to lifestyle changes. Vital Signs:Blood Pressure: Sitting Rt. Arm 100/60Blood Pressure: Upright Rt. Arm 96/62Pulse: Sitting 62 /min and RegularPulse: Upright 70 /minRespiratory Rate: 16Height 70 in or 1.8 mWeight 170 lb or 77.1 kgBMI 24.4Temperature: 97 F or 36.1 CThere is a 4 mm/Hg drop in systolic pressure between the two blood pressure measurements.The pulse decreased by 8Pulse Oximetry: 98 % at rest on no oxygen Chief Complaint: Addressed in HPI Problems or conditions discussed in the HPI were the only ones reviewed during the encounter.Only social and family history addressed in the HPI were reviewed during this encounter. Attendant(s): WifeConstitutional and Systemic Symptoms:none, night sweats, anorexia, weight loss, weight gain, generalized fatigue, myalgia and arthralgia Medication Reconciliation: from medication list. AnnotationsCarotid ultrasound from 02/26/2022 demonstrates less than 50% stenosis on both internal carotid arteries. Chest x-ray showed a cardiac silhouette slightly enlarged. Pacemaker is noted. No pulmonary edema or congestion. Right basilar consolidation and pleural effusion. This is unchanged from previous study from 12/11/2021. 10/21/2022: CT scan of the thorax demonstrates a moderate to large right-sided pleural effusion with no focal consolidation. Recommend pulmonary consult. History of Present Illness #1. Cardiomyopathy: History of Dilated Cardiomyopathy cardiomyopathy. No interval complaints of any orthopnea, PND or chest pain. Currently functioning at a III level. ADL: Bathing, Dressing, Eating, Functional Mobility, Personal Hygiene and Toilet Hygiene #2. Essential Hypertension: Stage: Stage I Interval Neurological Complaints no headaches, dizziness, weakness, visual changes, ataxia, aphasia and apraxia. No shortness of breath, orthopnea or cardiovascular symptoms. No other symptoms related to end organ damage. Pressure has been under excellent control. Currently low. No other end organ symptoms or findings. Therapy reviewed regarding management of hypertension and includes salt restriction and Metoprolol Succinate Er, Mexiletine Hydrochloride, Spironolactone and Torsemide. #3. Type II Hypercholesterolaemia: Currently taking medication and tolerating well. No interval complaints of any muscle pain or arthralgia. No significant liver changes with medications. Last lipid panel: fair control. Therapy reviewed regarding treatment of cholesterol management and include diet. Active Medication ListXarelto 15 MG TABLET, FILM COATED QdMetoprolol Succinate Er 25 MG TABLET, EXTENDED RELEASE QdZinc 50 MG QdFolic Acid 1 MG (TABLET - ORAL) One DailyMexiletine Hydrochloride 150 MG CAPSULE One DailyTorsemide 20 MG TABLET One DailySpironolactone 25 MG TABLET One DailyMethotrexate 2.5 MG (TABLET - ORAL) Four Tablets Once WeeklyMultivitamin DailyVitamin B6 2 Once DailyJardiance 10 MG TABLET, FILM COATED Once DailyMeclizine 25 MG TABLET One Tablet Tid Adverse Drug Reactions ReviewedLopressor Hair LossLisinopril Cough Vaccination and Immunization( ) 2023-11 INFLUENZA( ) 2007-12 PNEUMOVAX(X) 2014-07 PREVNAR 13 GC PREVNAR 20 Needed( ) 2020-03 COVID MODERNA( ) 2020-03 SHINGRIX( ) 2023-11 COVID BOOSTER MODERNA Surgical Crpmvno2713-42 AV Node Fhftluvq8373-87 XUKV7901-79 Right KZF3832-16 Left 3Rd Finger Hook-nail Dztqsgroc4549-72 Lt. Inguinal Fdislc6551-24 Multiple Eye Surgeries Preventative Testing( ) 11/15/2023 HAIC 5.5 % OF TOTAL HGB N( ) 07/22/2023 Ophthalmology( ) 05/13/2023 Albumin 3.8 G/DL( ) 10/21/2022 CT Thorax( ) 10/21/2022 PSA 4.98 NG/ML H( ) 03/05/2021 Colonoscopy ( 5 Years ) 03/05/2026( ) 10/03/2007 Upper Endoscopy( ) 04/25/2007 DEXA Scan 04/25/2009 Social HistoryDoes not smokeDrinks sociallyRetired printing press machinist Family HistoryMother 66 from leukemiaFather 71 from pancreatic cancerTwo brothers one from leukemiaOne sister from RHD two living and in good health Nic Zuniga MD [address] [facility] [address], [place], [address], [place] [facility] 01/10/2024 17:12:12
--- OUTSIDE RECORDS SUMMARY | 2024-05-07 17:51 | XMS_ITS | Clinical Summary ---
Author Organization Unknown Care Team Providers Care Hat Copyist Name Role Phone KALIN INTERSTATE/COVID/02/27/21, DAMIENEDWARD galvez Unavailable JASON RN, WAYLON Unavailable Unavailjennifer BONILLA DRAMATIC DIRECTOR, TAYO Unavailable Unavailable RIKKI PT, STANISLAV Unavailable Unavailable BEA TURN SUPERVISOR, EMMA Unavailable Unavailabl e ROBLES OT, CHERELLE Unavailable Unavailable SHANNEN ST, GIOVANNA Unavailable Unavailable Payers Payer Name Policy Type Policy Number Effective Date Expira tion Date MEDICARE.PALMETTO.[facility] [id number] Problems Condition Name Condition Details Condition Category Status Onset Date Resolution Date Last Treatment Date Treating Clinician Comments ENCNTR FOR SURGICAL AFTCR FOLLOWING SURGERY ON THE RESP SYS Active 03-14 00:00: 00 ENCOUNTER FOR CHANGE OR REMOVAL OF NONSURG WOUND DRESSING Active 03-14 00:00: 00 HYP HRT AND CHR KDNY DIS W HRT FAIL AND STG 1-4/UNSP CHR KDNY Active 03-17 00:00: 00 CHRONIC COMBINED SYSTOLIC AND DIASTOLIC HRT FAIL Active 03-17 00:00: 00 TYPE 2 DIABETES MELLITUS W DIABETIC CHRONIC KIDNEY DISEASE Active 03-17 00:00: 00 CHRONIC KIDNEY DISEASE, STAGE 3A Active 03-17 00:00: 00 OTHER PERSISTENT ATRIAL FIBRILLATION Active 03-17 00:00: 00 OTHER CARDIOMYOPAT HIES Active 03-17 00:00: 00 LEFT BUNDLE-BRANC H BLOCK, UNSPECIFIED Active 03-17 00:00: 00 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 Active 03-17 00:00: 00 RHEUMATOID ARTHRITIS, UNSPECIFIED Active 03-17 00:00: 00 SENSORINEURA L HEARING LOSS, BILATERAL Active 03-17 00:00: 00 OBSTRUCTIVE SLEEP APNEA (ADULT) (PEDIATRIC) Active 03-17 00:00: 00 HYPERLIPIDEM IA, UNSPECIFIED Active 03-17 00:00: 00 UNSPECIFIED OSTEOARTHRIT IS, UNSPECIFIED SITE Active 03-17 00:00: 00 UNSPECIFIED SEVERE PROTEIN-MICHAEL MYNOR MALNUTRITION Active 03-17 00:00: 00 PRESENCE OF AUTOMATIC (IMPLANTABLE ) CARDIAC DEFIBRILLATO R Active 03-17 00:00: 00 PRESENCE OF UNSPECIFIED ARTIFICIAL KNEE JOINT Active 03-17 00:00: 00 PERSONAL HISTORY OF NICOTINE DEPENDENCE Active 03-17 00:00: 00 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 Ordering Clinician Indication Dosage Frequency Signature (SIG) Comments Components folic acid 1 mg tablet 03-17 00:00: 00 Yes [id number] SUPPLEMENT 5 tablet DAILY 5 tablet DAILY (route: oral) Med Classific ation: Electroly te Balance-N utritiona l Products iron 325 mg (65 mg iron) tablet 03-17 00:00: 00 Yes [id number] SUPPLEMENT 1 tablet DAILY 1 tablet DAILY (route: oral) Med Classific ation: Electroly te Balance-N utritiona l Products Jardiance 25 mg tablet 03-17 00:00: 00 Yes [id number] HEART 0.5 tablet DAILY 0.5 tablet DAILY (route: oral) Med Classific ation: Endocrine methotrexat e sodium 2.5 mg tablet 03-17 00:00: 00 Yes [id number] STEROID 4 tablet WEEKLY 4 tablet WEEKLY (route: oral) Med Classific ation: Antineopl astics metoprolol succinate ER 25 mg tablet,exte nded release 24 hr 03-17 00:00: 00 Yes [id number] BLOOD PRESSURE 0.5 tablet DAILY 0.5 tablet DAILY (route: oral) Med Classific ation: Cardiovas cular Therapy Agents mexiletine 150 mg capsule 03-17 00:00: 00 Yes [id number] ANTIARRHYTH PEMA 1 capsule 2 TIMES DAILY 1 capsule 2 TIMES DAILY (route: oral) Med Classific ation: Cardiovas cular Therapy Agents spironolact one 25 mg tablet 03-17 00:00: 00 Yes [id number] HEART FAILURE 0.5 tablet DAILY 0.5 tablet DAILY (route: oral) Med Classific ation: Cardiovas cular Therapy Agents torsemide 20 mg tablet 03-17 00:00: 00 Yes [id number] HEART FAILURE 1 tablet DAILY 1 tablet DAILY (route: oral) Med Classific ation: Cardiovas cular Therapy Agents Xarelto 15 mg tablet 03-17 00:00: 00 Yes [id number] BLOOD THINNER 1 tablet DAILY 1 tablet DAILY (route: oral) Med Classific ation: Hematolog ical Agents zinc gluconate 50 mg tablet 03-18 00:00: 00 Yes [id number] SUPPLEMENT 1 tablet DAILY 1 tablet DAILY (route: oral) Med Classific ation: Electroly te Balance-N utritiona l Products losartan 25 mg tablet 03-17 00:00: 00 Yes [id number] BLOOD PRESSURE 1 tablet DAILY 1 tablet DAILY (route: oral) Med Classific ation: Cardiovas cular Therapy Agents mecobalamin (vitamin B12) 1,000 mcg chewable tablet 03-17 00:00: 00 Yes [id number] SUPPLEMENT 1 tablet DAILY 1 tablet DAILY (route: oral) Med Classific ation: Electroly te Balance-N utritiona l Products pyridoxine (vitamin B6) 100 mg tablet 03-17 00:00: 00 Yes [id number] SUPPLEMENT 1 tablet DAILY 1 tablet DAILY (route: oral) Med Classific ation: Electroly te Balance-N utritiona l Products Vital Signs Vital Name Observation Time Observation Value Commen ts Temperature 2024-05-07 12:38:00.000 98.1 [degF] Temperature 2024-05-04 09:47:00.000 98 [degF] Temperature 2024-04-30 14:31:00.000 97.3 [degF] Temperature 2024-04-27 13:16:00.000 97.6 [degF] Temperature 2024-04-25 12:11:00.000 98 [degF] Temperature 2024-04-23 12:04:00.000 97.5 [degF] Temperature 2024-04-20 09:54:00.000 97.7 [degF] Temperature 2024-04-18 09:48:00.000 97.8 [degF] Temperature 2024-04-16 11:59:00.000 97.7 [degF] Temperature 2024-04-13 10:27:00.000 97.7 [degF] Temperature 2024-04-11 14:45:00.000 98.3 [degF] Temperature 2024-04-09 15:32:00.000 97.6 [degF] Temperature 2024-04-06 12:59:00.000 97.6 [degF] Temperature 2024-04-04 14:25:00.000 96.7 [degF] Temperature 2024-04-02 10:50:00.000 97.8 [degF] Temperature 2024-03-30 12:01:00.000 97.2 [degF] Temperature 2024-03-28 11:12:00.000 97.7 [degF] Temperature 2024-03-26 12:33:00.000 98 [degF] Temperature 2024-03-23 12:34:00.000 97.4 [degF] Temperature 2024-03-19 14:19:00.000 97.7 [degF] Temperature 2024-03-17 10:20:00.000 96 [degF] BMI (%) 2024-03-17 10:20:00.000 21 kg/m2 Height 2024-03-17 10:20:00.000 70 [in_us] Pulse 2024-05-07 12:38:00.000 72 /min Pulse 2024-05-04 09:47:00.000 64 /min Pulse 2024-04-30 14:31:00.000 68 /min Pulse 2024-04-27 13:16:00.000 65 /min Pulse 2024-04-25 12:11:00.000 65 /min Pulse 2024-04-23 12:04:00.000 68 /min Pulse 2024-04-20 09:54:00.000 60 /min Pulse 2024-04-18 09:48:00.000 60 /min Pulse 2024-04-16 11:59:00.000 70 /min Pulse 2024-04-13 10:27:00.000 69 /min Pulse 2024-04-11 14:45:00.000 73 /min Pulse 2024-04-09 15:32:00.000 70 /min Pulse 2024-04-06 12:59:00.000 71 /min Pulse 2024-04-04 14:25:00.000 71 /min Pulse 2024-04-02 10:50:00.000 68 /min Pulse 2024-03-30 12:01:00.000 80 /min Pulse 2024-03-28 11:12:00.000 66 /min Pulse 2024-03-26 12:33:00.000 66 /min Pulse 2024-03-23 12:34:00.000 74 /min Pulse 2024-03-19 14:19:00.000 60 /min Pulse 2024-03-17 10:20:00.000 70 /min O2 Saturation (%) 2024-05-07 12:38:00.000 90 % O2 Saturation (%) 2024-05-04 09:47:00.000 94 % O2 Saturation (%) 2024-04-30 14:31:00.000 96 % O2 Saturation (%) 2024-04-27 13:16:00.000 95 % O2 Saturation (%) 2024-04-25 12:11:00.000 95 % O2 Saturation (%) 2024-04-23 12:07:00.000 98 % O2 Saturation (%) 2024-04-20 09:54:00.000 98 % O2 Saturation (%) 2024-04-18 09:48:00.000 95 % O2 Saturation (%) 2024-04-16 11:59:00.000 95 % O2 Saturation (%) 2024-04-13 10:27:00.000 90 % O2 Saturation (%) 2024-04-11 14:45:00.000 97 % O2 Saturation (%) 2024-04-09 15:32:00.000 92 % O2 Saturation (%) 2024-04-06 12:59:00.000 90 % O2 Saturation (%) 2024-04-04 14:25:00.000 97 % O2 Saturation (%) 2024-04-02 10:50:00.000 93 % O2 Saturation (%) 2024-03-30 12:01:00.000 96 % O2 Saturation (%) 2024-03-28 11:12:00.000 90 % O2 Saturation (%) 2024-03-26 12:33:00.000 90 % O2 Saturation (%) 2024-03-23 12:34:00.000 90 % O2 Saturation (%) 2024-03-19 14:19:00.000 92 % O2 Saturation (%) 2024-03-17 10:20:00.000 92 % Respirations 2024-05-07 12:38:00.000 20 /min Respirations 2024-05-04 09:47:00.000 18 /min Respirations 2024-04-30 14:31:00.000 19 /min Respirations 2024-04-27 13:16:00.000 18 /min Respirations 2024-04-25 12:11:00.000 19 /min Respirations 2024-04-23 12:04:00.000 19 /min Respirations 2024-04-20 09:54:00.000 19 /min Respirations 2024-04-18 09:48:00.000 19 /min Respirations 2024-04-16 11:59:00.000 19 /min Respirations 2024-04-13 10:27:00.000 19 /min Respirations 2024-04-11 14:45:00.000 18 /min Respirations 2024-04-09 15:32:00.000 20 /min Respirations 2024-04-06 12:59:00.000 19 /min Respirations 2024-04-04 14:25:00.000 18 /min Respirations 2024-04-02 10:50:00.000 18 /min Respirations 2024-03-30 12:01:00.000 18 /min Respirations 2024-03-28 11:12:00.000 19 /min Respirations 2024-03-26 12:33:00.000 19 /min Respirations 2024-03-23 12:34:00.000 18 /min Respirations 2024-03-19 14:19:00.000 19 /min Respirations 2024-03-17 10:20:00.000 18 /min Weight (lbs) 2024-05-07 12:38:00.000 148 [lb_av] Weight (lbs) 2024-05-04 09:56:00.000 148 [lb_av] Weight (lbs) 2024-04-30 14:31:00.000 151 [lb_av] Weight (lbs) 2024-04-27 13:19:00.000 149 [lb_av] Weight (lbs) 2024-04-25 12:11:00.000 149 [lb_av] Weight (lbs) 2024-04-23 12:06:00.000 150 [lb_av] Weight (lbs) 2024-04-20 10:03:00.000 148 [lb_av] Weight (lbs) 2024-04-18 09:50:00.000 148 [lb_av] Weight (lbs) 2024-04-16 12:10:00.000 148 [lb_av] Weight (lbs) 2024-04-13 10:33:00.000 148 [lb_av] Weight (lbs) 2024-04-11 15:10:00.000 149 [lb_av] Weight (lbs) 2024-04-09 15:34:00.000 153 [lb_av] Weight (lbs) 2024-04-06 13:18:00.000 153 [lb_av] Weight (lbs) 2024-04-04 14:29:00.000 153 [lb_av] Weight (lbs) 2024-04-02 10:52:00.000 153 [lb_av] Weight (lbs) 2024-03-30 12:01:00.000 150 [lb_av] Weight (lbs) 2024-03-28 11:13:00.000 151 [lb_av] Weight (lbs) 2024-03-26 12:35:00.000 150 [lb_av] Weight (lbs) 2024-03-19 14:25:00.000 150 [lb_av] Weight (lbs) 2024-03-17 10:20:00.000 150 [lb_av] Systolic Blood Pressure 2024-05-07 12:38:00.000 112 mm [Hg] Systolic Blood Pressure 2024-05-04 09:47:00.000 114 mm [Hg] Systolic Blood Pressure 2024-04-30 14:31:00.000 100 mm [Hg] Systolic Blood Pressure 2024-04-27 13:16:00.000 110 mm [Hg] Systolic Blood Pressure 2024-04-25 12:11:00.000 108 mm [Hg] Systolic Blood Pressure 2024-04-23 12:04:00.000 110 mm [Hg] Systolic Blood Pressure 2024-04-20 09:54:00.000 112 mm [Hg] Systolic Blood Pressure 2024-04-18 09:48:00.000 106 mm [Hg] Systolic Blood Pressure 2024-04-16 11:59:00.000 108 mm [Hg] Systolic Blood Pressure 2024-04-13 10:27:00.000 138 mm [Hg] Systolic Blood Pressure 2024-04-11 14:45:00.000 114 mm [Hg] Systolic Blood Pressure 2024-04-09 15:32:00.000 104 mm [Hg] Systolic Blood Pressure 2024-04-06 12:59:00.000 114 mm [Hg] Systolic Blood Pressure 2024-04-04 14:25:00.000 110 mm [Hg] Systolic Blood Pressure 2024-04-02 10:50:00.000 108 mm [Hg] Systolic Blood Pressure 2024-03-30 12:01:00.000 102 mm [Hg] Systolic Blood Pressure 2024-03-28 11:12:00.000 114 mm [Hg] Systolic Blood Pressure 2024-03-26 12:33:00.000 122 mm [Hg] Systolic Blood Pressure 2024-03-23 12:34:00.000 128 mm [Hg] Systolic Blood Pressure 2024-03-19 14:19:00.000 100 mm [Hg] Systolic Blood Pressure 2024-03-17 10:20:00.000 92 mm[ Hg] Diastolic Blood Pressure 2024-05-07 12:38:00.000 74 mm [Hg] Diastolic Blood Pressure 2024-05-04 09:47:00.000 78 mm [Hg] Diastolic Blood Pressure 2024-04-30 14:31:00.000 60 mm [Hg] Diastolic Blood Pressure 2024-04-27 13:16:00.000 70 mm [Hg] Diastolic Blood Pressure 2024-04-25 12:11:00.000 62 mm [Hg] Diastolic Blood Pressure 2024-04-23 12:04:00.000 60 mm [Hg] Diastolic Blood Pressure 2024-04-20 09:54:00.000 60 mm [Hg] Diastolic Blood Pressure 2024-04-18 09:48:00.000 98 mm [Hg] Diastolic Blood Pressure 2024-04-16 11:59:00.000 60 mm [Hg] Diastolic Blood Pressure 2024-04-13 10:27:00.000 86 mm [Hg] Diastolic Blood Pressure 2024-04-11 14:45:00.000 70 mm [Hg] Diastolic Blood Pressure 2024-04-09 15:32:00.000 60 mm [Hg] Diastolic Blood Pressure 2024-04-06 12:59:00.000 60 mm [Hg] Diastolic Blood Pressure 2024-04-04 14:25:00.000 72 mm [Hg] Diastolic Blood Pressure 2024-04-02 10:50:00.000 64 mm [Hg] Diastolic Blood Pressure 2024-03-30 12:01:00.000 50 mm [Hg] Diastolic Blood Pressure 2024-03-28 11:12:00.000 70 mm [Hg] Diastolic Blood Pressure 2024-03-26 12:33:00.000 60 mm [Hg] Diastolic Blood Pressure 2024-03-23 12:34:00.000 64 mm [Hg] Diastolic Blood Pressure 2024-03-19 14:19:00.000 70 mm [Hg] Diastolic Blood Pressure 2024-03-17 10:20:00.000 54 mm [Hg] Plan of Treatment Planned Activity Planned Date Details Comments Future Scheduled Test RN TO OBSE RVE, ASSESS, EVALUATE, AND DEVELOP AN INDIVIDUALIZED PLAN OF CARE. AGENCY MAY ACCEPT ORDERS FROM CONSULTING PHYSICIANS DAMIEN GAGNON MD, NIC FRANKLIN MD RN TO OBSERVE AND ASSESS, DRAMATIC DIRECTOR/ALUMINUM POOL INSTALLER TO OBSERVE FOR RISK FOR FALLS AND INSTRUCT IN FALL PREVENTION, HOME SAFETY, MEDICATION MANAGEMENT, INFECTION PREVENTION, AND NUTRITION MANAGEMENT. RN/DRAMATIC DIRECTOR/ALUMINUM POOL INSTALLER NURSE MAY PERFORM O2 SATURATION LEVEL ON ADMISSION, EVERY VISIT AND PRN FOR SHORTNESS OF BREATH FOR RN TO ASSESS/DRAMATIC DIRECTOR TO OBSERVE PATIENT, WITH NOTIFICATION TO THE PHYSICIAN IF SATURATION IS 90% IN THE ABSENCE OF MORE SPECIFIC PARAMETERS FROM THE PHYSICIAN. AGENCY MAY PERFORM A RESUMPTION OF CARE VISIT FOLLOWING ANY HOSPITAL ADMISSION. RN/DRAMATIC DIRECTOR/ALUMINUM POOL INSTALLER TO MONITOR CO-MORBID CONDITIONS LISTED ON THE PLAN OF CARE AND ANY NEW CONDITIONS THAT PRESENT THEMSELVES DURING THIS EPISODE TO IDENTIFY CHANGES AND INTERVENE TO MINIMIZE COMPLICATIONS. [code = RN TO OBSERVE, ASSESS, EVALUATE, AND DEVELOP AN INDIVIDUALIZED PLAN OF CARE. AGENCY MAY ACCEPT ORDERS FROM CONSULTING PHYSICIANS DAMIEN GAGNON MD, NIC FRANKLIN MD RN TO OBSERVE AND ASSESS, DRAMATIC DIRECTOR/ALUMINUM POOL INSTALLER TO OBSERVE FOR RISK FOR FALLS AND INSTRUCT IN FALL PREVENTION, HOME SAFETY, MEDICATION MANAGEMENT, INFECTION PREVENTION, AND NUTRITION MANAGEMENT. RN/DRAMATIC DIRECTOR/ALUMINUM POOL INSTALLER NURSE MAY PERFORM O2 SATURATION LEVEL ON ADMISSION, EVERY VISIT AND PRN FOR SHORTNESS OF BREATH FOR RN TO ASSESS/DRAMATIC DIRECTOR TO OBSERVE PATIENT, WITH NOTIFICATION TO THE PHYSICIAN IF SATURATION IS 90% IN THE ABSENCE OF MORE SPECIFIC PARAMETERS FROM THE PHYSICIAN. AGENCY MAY PERFORM A RESUMPTION OF CARE VISIT FOLLOWING ANY HOSPITAL ADMISSION. RN/DRAMATIC DIRECTOR/ALUMINUM POOL INSTALLER TO MONITOR CO-MORBID CONDITIONS LISTED ON THE PLAN OF CARE AND ANY NEW CONDITIONS THAT PRESENT THEMSELVES DURING THIS EPISODE TO IDENTIFY CHANGES AND INTERVENE TO MINIMIZE COMPLICATIONS.] Future Scheduled Test MEDICATION MANAGEMENT; RN/DRAMATIC DIRECTOR/ALUMINUM POOL INSTALLER TO REVIEW MEDICATIONS FOR INTERACTIONS, EFFECTIVENESS OF DRUG THERAPY, AND SIGNS/SYMPTOMS OF ADVERSE REACTIONS. MAY INSTRUCT AND REINFORCE MEDICATION TEACHING RELATED TO THE USE OF MEDICATIONS, DOSAGE, FREQUENCY, PURPOSE, SIDE EFFECTS, AND TO REPORT COMPLICATIONS. [code = MEDICATION MANAGEMENT; RN/DRAMATIC DIRECTOR/ALUMINUM POOL INSTALLER TO REVIEW MEDICATIONS FOR INTERACTIONS, EFFECTIVENESS OF DRUG THERAPY, AND SIGNS/SYMPTOMS OF ADVERSE REACTIONS. MAY INSTRUCT AND REINFORCE MEDICATION TEACHING RELATED TO THE USE OF MEDICATIONS, DOSAGE, FREQUENCY, PURPOSE, SIDE EFFECTS, AND TO REPORT COMPLICATIONS.] Future Scheduled Test ANTICOAGUL ATION MANAGEMENT; RN TO ASSESS AND TEACH, DRAMATIC DIRECTOR/ALUMINUM POOL INSTALLER TO OBSERVE/TEACH/MONITOR EFFECTIVENESS OF ANTICOAGULATION THERAPY. RN/DRAMATIC DIRECTOR/ALUMINUM POOL INSTALLER TO INSTRUCT ON SIGNS AND SYMPTOMS OF BLEEDING/ADVERSE REACTIONS TO REPORT TO PHYSICIAN. RN/DRAMATIC DIRECTOR/ALUMINUM POOL INSTALLER TO PERFORM PT/INR VIA VENIPUNCTURE OR COAGUCHECK PRN PHYSICIAN ORDERS. RN/DRAMATIC DIRECTOR/ALUMINUM POOL INSTALLER TO FAX/CALL IN RESULTS TO DR NIC RICHARDSON [code = ANTICOAGULATION MANAGEMENT; RN TO ASSESS AND TEACH, DRAMATIC DIRECTOR/ALUMINUM POOL INSTALLER TO OBSERVE/TEACH/MONITOR EFFECTIVENESS OF ANTICOAGULATION THERAPY. RN/DRAMATIC DIRECTOR/ALUMINUM POOL INSTALLER TO INSTRUCT ON SIGNS AND SYMPTOMS OF BLEEDING/ADVERSE REACTIONS TO REPORT TO PHYSICIAN. RN/DRAMATIC DIRECTOR/ALUMINUM POOL INSTALLER TO PERFORM PT/INR VIA VENIPUNCTURE OR COAGUCHECK PRN PHYSICIAN ORDERS. RN/DRAMATIC DIRECTOR/ALUMINUM POOL INSTALLER TO FAX/CALL IN RESULTS TO DR NIC RICHARDSON ] Future Scheduled Test RISK FOR H OSPITALIZATION; RN TO ASSESS/TEACH, ALUMINUM POOL INSTALLER/DRAMATIC DIRECTOR TO OBSERVE/TEACH PATIENT/CAREGIVER ON RISK FOR HOSPITALIZATION/EMERGENCY ROOM VISITS, TEACH SIGNS AND SYMPTOMS THAT PUT PATIENT AT RISK, WHEN TO NOTIFY NURSE/PHYSICIAN OF COMPLICATIONS/DECLINE, AND WHEN TO CALL 911. [code = RISK FOR HOSPITALIZATION; RN TO ASSESS/TEACH, ALUMINUM POOL INSTALLER/DRAMATIC DIRECTOR TO OBSERVE/TEACH PATIENT/CAREGIVER ON RISK FOR HOSPITALIZATION/EMERGENCY ROOM VISITS, TEACH SIGNS AND SYMPTOMS THAT PUT PATIENT AT RISK, WHEN TO NOTIFY NURSE/PHYSICIAN OF COMPLICATIONS/DECLINE, AND WHEN TO CALL 911.] Future Scheduled Test CARDIOVASC ULAR SYSTEM; RN TO ASSESS/TEACH, DRAMATIC DIRECTOR/ALUMINUM POOL INSTALLER TO OBSERVE/TEACH RELATED TO ALTERED CARDIOVASCULAR STATUS TO MINIMIZE COMPLICATIONS AND REDUCE HOSPITALIZATION. [code = CARDIOVASCULAR SYSTEM; RN TO ASSESS/TEACH, DRAMATIC DIRECTOR/ALUMINUM POOL INSTALLER TO OBSERVE/TEACH RELATED TO ALTERED CARDIOVASCULAR STATUS TO MINIMIZE COMPLICATIONS AND REDUCE HOSPITALIZATION.] Future Scheduled Test HEART FAIL URE; RN TO ASSESS/TEACH, DRAMATIC DIRECTOR/ALUMINUM POOL INSTALLER TO OBSERVE/TEACH CARDIOPULMONARY SYSTEM TO IDENTIFY SIGNS OF DECOMPENSATION AND INTERVENE TO MINIMIZE THE SEVERITY OF FLUID OVERLOAD. OBSERVE PATIENT ABILITY TO MONITOR AND RECORD DAILY WEIGHTS AND VITAL SIGNS, INCLUDING PULSE AND BLOOD PRESSURE; RECORD PATIENT REPORTED WEIGHT, OR WEIGH PATIENT NEEDED. REPORT INCREASED EDEMA OR WEIGHT GAIN OF >2 LBS IN 1 DAY OR >5 LBS IN 1 WEEK OR 5LBS OR MORE OVER TARGET WEIGHT. MAY MEASURE ABDOMINAL GIRTH IF UNABLE TO WEIGH. SCALES AND BP MONITOR TO BE PROVIDED IF NEEDED. [code = HEART FAILURE; RN TO ASSESS/TEACH, DRAMATIC DIRECTOR/ALUMINUM POOL INSTALLER TO OBSERVE/TEACH CARDIOPULMONARY SYSTEM TO IDENTIFY SIGNS OF DECOMPENSATION AND INTERVENE TO MINIMIZE THE SEVERITY OF FLUID OVERLOAD. OBSERVE PATIENT ABILITY TO MONITOR AND RECORD DAILY WEIGHTS AND VITAL SIGNS, INCLUDING PULSE AND BLOOD PRESSURE; RECORD PATIENT REPORTED WEIGHT, OR WEIGH PATIENT NEEDED. REPORT INCREASED EDEMA OR WEIGHT GAIN OF >2 LBS IN 1 DAY OR >5 LBS IN 1 WEEK OR 5LBS OR MORE OVER TARGET WEIGHT. MAY MEASURE ABDOMINAL GIRTH IF UNABLE TO WEIGH. SCALES AND BP MONITOR TO BE PROVIDED IF NEEDED.] Future Scheduled Test HYPERTENSI ON MANAGEMENT; RN TO ASSESS AND TEACH, DRAMATIC DIRECTOR/ALUMINUM POOL INSTALLER TO OBSERVE AND TEACH WARNING SIGNS AND SYMPTOMS TO AVOID HOSPITALIZATION. [code = HYPERTENSION MANAGEMENT; RN TO ASSESS AND TEACH, DRAMATIC DIRECTOR/ALUMINUM POOL INSTALLER TO OBSERVE AND TEACH WARNING SIGNS AND SYMPTOMS TO AVOID HOSPITALIZATION.] Future Scheduled Test ARRHYTHMIA MANAGEMENT; RN TO ASSESS AND TEACH, DRAMATIC DIRECTOR/ALUMINUM POOL INSTALLER TO OBSERVE AND TEACH WARNING SIGNS AND SYMPTOMS TO AVOID HOSPITALIZATION. [code = ARRHYTHMIA MANAGEMENT; RN TO ASSESS AND TEACH, DRAMATIC DIRECTOR/ALUMINUM POOL INSTALLER TO OBSERVE AND TEACH WARNING SIGNS AND SYMPTOMS TO AVOID HOSPITALIZATION.] Future Scheduled Test PACEMAKER MANAGEMENT; RN/DRAMATIC DIRECTOR/ALUMINUM POOL INSTALLER TO PROVIDE SKILLED TEACHING AND ASSIST WITH MANAGEMENT OF PACEMAKER. [code = PACEMAKER MANAGEMENT; RN/DRAMATIC DIRECTOR/ALUMINUM POOL INSTALLER TO PROVIDE SKILLED TEACHING AND ASSIST WITH MANAGEMENT OF PACEMAKER.] Future Scheduled Test RESPIRATOR Y SYSTEM MANAGEMENT; RN TO ASSESS AND TEACH, DRAMATIC DIRECTOR/ALUMINUM POOL INSTALLER TO OBSERVE AND TEACH RELATED TO ALTERED RESPIRATORY STATUS TO MINIMIZE COMPLICATIONS AND REDUCE HOSPITALIZATION. [code = RESPIRATORY SYSTEM MANAGEMENT; RN TO ASSESS AND TEACH, DRAMATIC DIRECTOR/ALUMINUM POOL INSTALLER TO OBSERVE AND TEACH RELATED TO ALTERED RESPIRATORY STATUS TO MINIMIZE COMPLICATIONS AND REDUCE HOSPITALIZATION.] Future Scheduled Test PAIN MANAG EMENT; RN TO ASSESS AND TEACH, ALUMINUM POOL INSTALLER/DRAMATIC DIRECTOR TO OBSERVE AND TEACH AND PROVIDE EDUCATION ON PAIN MANAGEMENT TECHNIQUES. [code = PAIN MANAGEMENT; RN TO ASSESS AND TEACH, ALUMINUM POOL INSTALLER/DRAMATIC DIRECTOR TO OBSERVE AND TEACH AND PROVIDE EDUCATION ON PAIN MANAGEMENT TECHNIQUES.] Future Scheduled Test DIABETES M ANAGEMENT; RN TO ASSESS AND TEACH, ALUMINUM POOL INSTALLER/DRAMATIC DIRECTOR TO OBSERVE AND TEACH INSTRUCTIONS OF DIABETIC CARE TO INCLUDE: DIET DIABETIC, HEART HEALTHY SKIN CARE, SIGNS AND SYMPTOMS OF HYPO/HYPERGLYCEMIA, PROPER ADMINISTRATION OF DIABETIC MEDICATION. RN/ALUMINUM POOL INSTALLER/DRAMATIC DIRECTOR TO INSTRUCT ON DIABETIC FOOT CARE AND MONITOR FOR SKIN LESIONS ON LOWER EXTREMITIES. BLOOD GLUCOSE TESTING PRN. RN TO ASSESS AND TEACH, ALUMINUM POOL INSTALLER/DRAMATIC DIRECTOR TO OBSERVE AND TEACH PATIENT/CAREGIVER ABILITY TO PERFORM AND RECORD BLOOD GLUCOSE TESTING ORDERED AND TO REPORT ABNORMAL FINDINGS TO PHYSICIAN. RN/ALUMINUM POOL INSTALLER/DRAMATIC DIRECTOR MAY PERFORM BLOOD GLUCOSE TEST NEEDED. RN/ALUMINUM POOL INSTALLER/DRAMATIC DIRECTOR TO REPORT TO PHYSICIAN BLOOD GLUCOSE READINGS GREATER THAN 300 OR LESS THAN 70. RN/ALUMINUM POOL INSTALLER/DRAMATIC DIRECTOR TO INSTRUCT PATIENT ON IMPORTANCE OF HGBA1C MONITORING, KIDNEY FUNCTION TEST, EYE AND FOOT EXAMS. [code = DIABETES MANAGEMENT; RN TO ASSESS AND TEACH, ALUMINUM POOL INSTALLER/DRAMATIC DIRECTOR TO OBSERVE AND TEACH INSTRUCTIONS OF DIABETIC CARE TO INCLUDE: DIET DIABETIC, HEART HEALTHY SKIN CARE, SIGNS AND SYMPTOMS OF HYPO/HYPERGLYCEMIA, PROPER ADMINISTRATION OF DIABETIC MEDICATION. RN/ALUMINUM POOL INSTALLER/DRAMATIC DIRECTOR TO INSTRUCT ON DIABETIC FOOT CARE AND MONITOR FOR SKIN LESIONS ON LOWER EXTREMITIES. BLOOD GLUCOSE TESTING PRN. RN TO ASSESS AND TEACH, ALUMINUM POOL INSTALLER/DRAMATIC DIRECTOR TO OBSERVE AND TEACH PATIENT/CAREGIVER ABILITY TO PERFORM AND RECORD BLOOD GLUCOSE TESTING ORDERED AND TO REPORT ABNORMAL FINDINGS TO PHYSICIAN. RN/ALUMINUM POOL INSTALLER/DRAMATIC DIRECTOR MAY PERFORM BLOOD GLUCOSE TEST NEEDED. RN/ALUMINUM POOL INSTALLER/DRAMATIC DIRECTOR TO REPORT TO PHYSICIAN BLOOD GLUCOSE READINGS GREATER THAN 300 OR LESS THAN 70. RN/ALUMINUM POOL INSTALLER/DRAMATIC DIRECTOR TO INSTRUCT PATIENT ON IMPORTANCE OF HGBA1C MONITORING, KIDNEY FUNCTION TEST, EYE AND FOOT EXAMS.] Future Scheduled Test MALNUTRITI ON MANAGEMENT; RN TO ASSESS AND TEACH, ALUMINUM POOL INSTALLER/DRAMATIC DIRECTOR TO OBSERVE AND TEACH AND INSTRUCT PATIENT / CAREGIVER ON INTERVENTIONS TO IMPROVE NUTRITIONAL INTAKE AND PATIENT WELLBEING. [code = MALNUTRITION MANAGEMENT; RN TO ASSESS AND TEACH, ALUMINUM POOL INSTALLER/DRAMATIC DIRECTOR TO OBSERVE AND TEACH AND INSTRUCT PATIENT / CAREGIVER ON INTERVENTIONS TO IMPROVE NUTRITIONAL INTAKE AND PATIENT WELLBEING.] Future Scheduled Test RN/DRAMATIC DIRECTOR/ALUMINUM POOL INSTALLER TO PERFORM AND TEACH PATIENT/CAREGIVER SELF-MANAGEMENT OF THE ASEPT PLEURAL DRAINAGE SYSTEM ON THE RIGHT FLANK AREA TO INCLUDE: DRAIN CATHETER 3XWEEK USING THE ASEPT DRAINAGE PROCEDURE, INSPECT CATHETER EVERY DAY, CHANGE DRESSING 3XWEEK AND PRN FOR SOILAGE OR DISLODGMENT CLEAN AREA WITH ALCOHOL SWAB COVER WITH FOAM, AND TEGADERM DRESSING MAY CHANGE DRESSING PRN IF SOILED OR DISLODGED. RN/DRAMATIC DIRECTOR/ALUMINUM POOL INSTALLER TEACH PATIENT/CAREGIVER SIGNS AND SYMPTOMS TO REPORT TO MINIMIZE THE RISK OF COMPLICATIONS. [code = RN/DRAMATIC DIRECTOR/ALUMINUM POOL INSTALLER TO PERFORM AND TEACH PATIENT/CAREGIVER SELF-MANAGEMENT OF THE ASEPT PLEURAL DRAINAGE SYSTEM ON THE RIGHT FLANK AREA TO INCLUDE: DRAIN CATHETER 3XWEEK USING THE ASEPT DRAINAGE PROCEDURE, INSPECT CATHETER EVERY DAY, CHANGE DRESSING 3XWEEK AND PRN FOR SOILAGE OR DISLODGMENT CLEAN AREA WITH ALCOHOL SWAB COVER WITH FOAM, AND TEGADERM DRESSING MAY CHANGE DRESSING PRN IF SOILED OR DISLODGED. RN/DRAMATIC DIRECTOR/ALUMINUM POOL INSTALLER TEACH PATIENT/CAREGIVER SIGNS AND SYMPTOMS TO REPORT TO MINIMIZE THE RISK OF COMPLICATIONS.] Future Scheduled Test FALL REDUC TION MANAGEMENT; RN TO ASSESS AND OBSERVE, DRAMATIC DIRECTOR/ALUMINUM POOL INSTALLER TO OBSERVE FALL RISK FACTORS AND EDUCATE PATIENT/CAREGIVER ON STRATEGIES TO MINIMIZE THE RISK OF FALLING. [code = FALL REDUCTION MANAGEMENT; RN TO ASSESS AND OBSERVE, DRAMATIC DIRECTOR/ALUMINUM POOL INSTALLER TO OBSERVE FALL RISK FACTORS AND EDUCATE PATIENT/CAREGIVER ON STRATEGIES TO MINIMIZE THE RISK OF FALLING.] Future Scheduled Test PRN VISITS ; NUMBER OF RN/DRAMATIC DIRECTOR/ALUMINUM POOL INSTALLER VISITS: 2 RN/DRAMATIC DIRECTOR/ALUMINUM POOL INSTALLER TO PERFORM: ASSESSMENT AND EDUCATION FOR THE FOLLOWING REASONS: PLEURAL DRAINAGE COMPLICATIONS NUMBER OF RN/DRAMATIC DIRECTOR VISITS: 1 RN/DRAMATIC DIRECTOR/ALUMINUM POOL INSTALLER TO PERFORM: ASSESSMENT AND EDUCATION FOR THE FOLLOWING REASONS: CARDIAC COMPLICATIONS [code = PRN VISITS; NUMBER OF RN/DRAMATIC DIRECTOR/ALUMINUM POOL INSTALLER VISITS: 2 RN/DRAMATIC DIRECTOR/ALUMINUM POOL INSTALLER TO PERFORM: ASSESSMENT AND EDUCATION FOR THE FOLLOWING REASONS: PLEURAL DRAINAGE COMPLICATIONS NUMBER OF RN/DRAMATIC DIRECTOR VISITS: 1 RN/DRAMATIC DIRECTOR/ALUMINUM POOL INSTALLER TO PERFORM: ASSESSMENT AND EDUCATION FOR THE FOLLOWING REASONS: CARDIAC COMPLICATIONS] Goal Patient Goal - TO STAY ALIVE Goal Provider Goal - A PLAN OF CARE WILL BE ESTABLISHED THAT MEETS THE PATIENTS NEEDS. PATIENT WILL DEMONSTRATE OXYGEN SATURATION WITHIN NORMAL LIMITS OR PATIENTS OPTIMAL LEVEL ESTABLISHED BY THE PHYSICIAN THROUGHOUT CARE. CHANGES TO CO-MORBID CONDITIONS AND ANY NEW CONDITIONS WILL BE IDENTIFIED AND REPORTED TO THE PHYSICIAN. Goal Provider Goal - PATIENT/CAREGIVER TO VERBALIZE, AND CONSISTENTLY DEMONSTRATE EFFECTIVE, SAFE MANAGEMENT OF MEDICATION INCLUDING KNOWLEDGE OF EFFECTIVENESS, POTENTIAL SIDE EFFECTS AND DRUG REACTIONS AND WHEN TO CONTACT THE APPROPRIATE CARE PROVIDER. PATIENT/CAREGIVER WILL BE ABLE TO VERBALIZE UNDERSTANDING OF MEDICATION REGIMEN AND ACCURATELY TAKE MEDICATIONS PRESCRIBED WITHOUT ADVERSE EFFECTS BY 05/15/24 Goal Provider Goal - INEFFECTIVE ANTICOAGULATION THERAPY WILL BE IDENTIFIED AND PROMPTLY REPORTED TO THE PHYSICIAN. PATIENT / CAREGIVER WILL VERBALIZE UNDERSTANDING OF MEASURES TO MAINTAIN EFFECTIVE ANTICOAGULATION THERAPY BY 05/15/24 Goal Provider Goal - PATIENT/CAREGIVER WILL VERBALIZE UNDERSTANDING OF SIGNS AND SYMPTOMS THAT PUT THE PATIENT AT RISK FOR HOSPITALIZATION /EMERGENCY ROOM VISITS, WHEN TO NOTIFY NURSE/PHYSICIAN OF COMPLICATIONS/DECLINE AND WHEN TO CALL 911. Goal Provider Goal - PATIENT / CAREGIVER WILL VERBALIZE/DEMONSTRATE UNDERSTANDING OF MEASURES TO MANAGE ALTERED CARDIOVASCULAR STATUS BY 05/15/24 Goal Provider Goal - PATIENT / CAREGIVER WILL VERBALIZE/DEMONSTRATE AN ABILITY TO ADHERE TO SELF-MANAGEMENT OF HF TO MINIMIZE COMPLICATIONS AND AVOID HOSPITALIZATION BY END OF EPISODE. Goal Provider Goal - PATIENT / CAREGIVER WILL VERBALIZE/DEMONSTRATE AN ABILITY TO ADHERE TO SELF-MANAGEMENT OF HTN TO MINIMIZE COMPLICATIONS AND AVOID HOSPITALIZATION BY END OF EPISODE. Goal Provider Goal - PATIENT / CAREGIVER WILL VERBALIZE/DEMONSTRATE AN ABILITY TO ADHERE TO SELF-MANAGEMENT OF HEART ARRHYTHMIA TO MINIMIZE COMPLICATIONS AND AVOID HOSPITALIZATION BY END OF EPISODE. Goal Provider Goal - PATIENT / CAREGIVER WILL VERBALIZE/DEMONSTRATE UNDERSTANDING OF CARE AND MANAGEMENT OF PACEMAKER BY END OF EPISODE. Goal Provider Goal - PATIENT / CAREGIVER WILL VERBALIZE/DEMONSTRATE UNDERSTANDING OF MEASURES TO MANAGE ALTERED RESPIRATORY STATUS BY END OF EPISODE. Goal Provider Goal - PATIENT / CAREGIVER WILL VERBALIZE / DEMONSTRATE UNDERSTANDING OF PAIN CONTROL MEASURES BY 05/15/24 Goal Provider Goal - PATIENT / CAREGIVER WILL VERBALIZE / DEMONSTRATE AN ABILITY TO ADHERE TO SELF-MANAGEMENT OF DIABETES MANAGEMENT BY 05/15/24 Goal Provider Goal - PATIENT / CAREGIVER WILL VERBALIZE/DEMONSTRATE APPROPRIATE METHODS TO IMPROVE NUTRITIONAL STATUS BY END OF EPISODE. Goal Provider Goal - PATIENT / CAREGIVER WILL VERBALIZE/DEMONSTRATE ABILITY TO CARE FOR PLEURAL DRAINAGE SYSTEM BY 05/15/24 Goal Provider Goal - PATIENT/CAREGIVER WILL VERBALIZE/DEMONSTRATE UNDERSTANDING OF FALL RISK FACTORS AND IMPLEMENT STRATEGIES TO MINIMIZE FALL RISK. PATIENT/CAREGIVER WILL VERBALIZE/DEMONSTRATE AN ABILITY TO ADHERE TO FALL REDUCTION SELF-MANAGEMENT AND LIFE-STYLE CHANGES BY 05/15/24 Goal Provider Goal - Encounters Start Date/Time End Date/Time Encounter Type Admission Type Attending [facility] Care Department Encounter ID Discharge Date Discharge Status Discharge Condition Discharge Reason Percent Goals Met 2024-03-17 00:00:00 2024-05-15 00:00:00 Outpatient NEW ADMISSION WAYLON GOMEZ [facility] [id number] 84.85
--- OUTSIDE RECORDS SUMMARY | 2024-05-07 17:51 | XMS_ITS | Continuity of Care Document ---
Author Organization Located within [facility] Address [address] [place] [address] [place] [address] Phone Care Team Providers Care Template Layout Worker Name Role Phone Peng Pandya Unavailable Unavailable Procedures Procedure Date Office/outpatient Visit, Est No Script Office/outpatient Visit, Est Eye Exam & Treatment Refraction Advance Directives Directive Yes / No Effective Date File Name No Information Encounters Encounter Description Practice Location Reason(s) For Visit Diagnoses Date Provider Providers Copied on Encounter Office/outpat ient Visit, [facility], [address] [place] [address] [address], [place], [place], [id number], tel:[phone] [facility] No Information 6-201 0 Ya Khoury. [facility] , [address], [place], [place], [facility], . tel:[phone] Office/outpat ient Visit, [facility], [address] [place] [address] [address], [place], [place], [id number], [place] tel:[phone] [facility] No Information [address] Treviño OD Fede. [address] , [address], [place], [place], [facility], . tel:[phone] [facility], [address] [place] [address] [address], [place], [place], [address], tel:[phone] [facility] No Information Brody-1 3-200 7 Doisy Peng. [address] , [address], [place], [address], [place]. tel:[phone] Family History Family Member Type Diagnosis Age At Onset No Information Payers Payer name Insurance type Covered green party ID Authoryevgeniya tisurinder(s) Medicare [facility] [id number] [employer] BL [id number] Social History Type Description Quantity Date Captured Comments Sex Male Smoking Status No Information Chief Complaint And Reason For Visit No Information Reason For Referral Reason For Referral No Information History Of Present Illness Encounter Date Complaint History Of Prese nt Illness No Information Functional Status Date Functional Assessmen t No Information Instructions Date Instruction Additional Infor mation No Information Assessments Type Assessment Date No Information Patient Care Teams Name Effective Dates (start - stop) Status Members No Information
--- OUTSIDE RECORDS SUMMARY | 2024-05-07 17:51 | XMS_ITS | Patient Health Summary ---
Author Organization [facility] Address [address] [place] [address] Care Team Providers Care Crawler Crane Operator Name Role Phone Demarcus Zuniga MD Primary Care Provider [phone] Note from [facility],non-owned Affiliates and Associated Physician Practices is amultiple site organization consisting of ambulatory clinics and hospital sitesin [place], [place], [place] and [place]. This disclosure is being madepursuant to the Care Everywhere program and may not contain all information available regarding this patient. Last updated 17.[facility] Social History Tobacco Use Types Packs/Day Years Used Date Smoking Tobacco: Never Assessed Sex and Gender Information Value Date Recorded Sex Assigned at Not on file Gender Identity Not on file Sexual Orientation Not on file Procedures * DERMATOPATHOLOGY(Performed 03/02/2023) * DERMATOPATHOLOGY(Performed 03/24/2021) * DERMATOPATHOLOGY(Performed 02/10/2017) * DERMATOPATHOLOGY(Performed 07/13/2016) * DERMATOPATHOLOGY(Performed 02/02/2012) * DERMATOPATHOLOGY(Performed 02/18/2011) Results * DERMATOPATHOLOGY (03/02/2023 3:33 AM EGG GRADER) Only the most recent of6 resultswithin the time period is included. Case Report Dermatopathology Report Case: [id number] Authorizing Provider: Thaddeus Cevallos MD Collected: 03/02/2023 03:33 AM Ordering Location: [facility] DermPath Lab Received: 03/04/2023 03:33 PM Pathologist: Julieta Diaz MD Specimen: Skin, nose bridge midline 4 12:07 PM [facility]MAT[facility] Final Diagnosis Specimen A. 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 The specimen consists of a shave biopsy measuring 13x9x3 mm. Jar 0. 12:07 PM [facility] DERMATOPATHOLOGY LABORATORY Microscopic Description Specimen A. SKIN, nose bridge midline: Arising in the epidermis and extending into the dermis there are irregularly shaped aggregates of keratinocytes showing evidence of premature cornification. 4 12:07 PM [facility] DERMATOPATHOLOGY LABORATORY Disclaimer An external and internal positive and negative controls are appropriate for the histochemical, immunohistochemical and immunofluorescence stain(s) in this case (if any), except where stated explicitly. The performance characteristics of the stain(s) cited in this report were developed and its performance characteristic determined by the Dermatopathology Laboratory at [facility], directed by Dr. Madison Galvan. These tests need not be, and therefore are not, approved by the [place] Food and Drug Administration. The tests are used for clinical purposes. Billing Codes Specimen Charges Stain Charges 42648 1 4 12:07 PM [facility] DERMATOPATHOLOGY LABORATORY Embedded Images 4 12:07 PM [facility] DERMATOPATHOLOGY LABORATORY Pathology/Cytolo gy TISSUE SPECIMEN FROM SKIN / Unknown 03/02/2023 3:33 AM EGG GRADER 03/04/2023 3:33 PM EGG GRADER Thaddeus Cevallos MD LAB - PATHOLOGY/CYTO LOGY ORDER[facility]LES DERMATOPATHOLOGY LABORATORY [facility] - Department of Dermatology [facility] Medicine [address] [place] [address], [address] [phone] Care Teams Crawler Crane Operator Relationship Specialty Start Date End Date Demarcus Zuniga MD [facility] [address] [address] [place] [id number] PCP - General 03/06/21
== END 2024-05-07 15:09 | disposition home or self-care (01) ==
DX: R91.8 Other nonspecific abnormal finding of lung field (principal); J90 Pleural effusion, not elsewhere classified; I50.23 Acute on chronic systolic (congestive) heart failure
CPT/HCPCS: 71046